=== PATIENT | female | born 1955 | race Caucasian/White ===

== ENCOUNTER → 2017-11-05 | Outpatient (CLI) | payer OTHER ==
[~2017-11-05] MED LIST: ALBU2.5V5 NEB; ALBU90I INH; ALBU90OI61 INH; ASPI81CH PO; ATEN25 PO; AZIT250 PO; BUME1 PO; CALCAVITD PO; CALCAVITDA PO; CEFP200 PO; DULERA 100 MCG/13 GM INH; DULERA 200 MCG/13 GM INH; ELIQUIS5 MG PO; FERR325 PO; FISH1000 PO; FOLI1 PO; FURO20 PO; GABA300 PO; IBUP800 PO; INSDET100 SC; LEVSOD100 PO; LISI20; LISI20 PO; METF500 PO; METF500C PO; PAIN & FEVER500 MG PO; POTCHL10ER PO; PRED10 PO; Prinivil10 MG PO; RALO60 PO; SALM50IP INH; SIMV10 PO; SIMV20 PO; SUPER CALCIUM PO; SV SALMON OIL1 EACH PO; THAL50CA PO; TIOT18 INH; WARF1 PO; WARF2 PO; WARF3 PO; ZESTORETIC 20-121 EA; ZESTORETIC 20-121 EA PO; [UNRECOGNIZED DRUG - OTHER] PO
[2017-11-05 12:51] LABS: BASOPHILS ABSOLUTE AUTO 0.02 K/mm3 (0.00-0.23); BASOPHILS PERCENT AUTO 0 % (0-2); EOSINOPHILS ABSOLUTE AUTO 0.04 K/mm3 (0.00-0.68); EOSINOPHILS PERCENT AUTO 1 % (0-6); Hematocrit 30.7 % (33.0-51.0); Hemoglobin 9.2 g/dL (11.5-16.0); IMMATURE GRAN ABSOLUTE AUTO 0.14 K/mm3 (0.00-0.10); IMMATURE GRAN PERCENT AUTO 3 % (0-1); LYMPHOCYTES ABSOLUTE AUTO 1.37 K/mm3 (0.84-5.20); LYMPHOCYTES PERCENT AUTO 25 % (21-46); MONOCYTES ABSOLUTE AUTO 0.87 K/mm3 (0.16-1.47); MONOCYTES PERCENT AUTO 16 % (4-13); Mean Corpuscular HGB 27.2 pg (26.0-34.0); Mean Corpuscular Volume 91 fL (80-100); Mean Platelet Volume 11.3 fL (9.1-12.4); NEUTROPHILS ABSOLUTE AUTO 3.05 K/mm3 (1.96-9.15); NEUTROPHILS PERCENT AUTO 56 % (41-73); NRBC ABSOLUTE 0.02 K/mm3 (0.00-0.02); NRBC Auto 0.4 /100 WBC (0.0-0.2); Platelet Count 135 K/mm3 (150-400); RDW Coefficient Variation 20.3 % (11.7-14.2); RDW Standard Deviation 66.3 fL (35.1-46.3); Red Blood Cell Count 3.38 M/mm3 (3.80-5.20); White Blood Cell Count 5.49 K/mm3 (4.00-11.30)
[2017-11-05 12:59] LABS: Bun/Creatinine Ratio 16.3 (12.0-20.0); Calcium, Blood 9.2 mg/dL (8.5-10.1); Creatinine, Blood 1.29 mg/dL (0.40-1.00); Potassium, Blood 4.1 mmol/L (3.5-5.5)
== END ==
LOC: LAB 12:47 → LAB SHORT 12:47
PROVIDERS: Family Medicine
DX: J44.1 Chronic obstructive pulmonary disease with (acute) exacerbation (principal)
CPT/HCPCS: 80048; 83880; 85025

== ENCOUNTER → 2017-11-06 | Outpatient (CLI) | payer OTHER ==
[2017-11-06 10:12] LABS: BASOPHILS ABSOLUTE AUTO 0.01 K/mm3 (0.00-0.23); BASOPHILS PERCENT AUTO 0 % (0-2); EOSINOPHILS ABSOLUTE AUTO 0.04 K/mm3 (0.00-0.68); EOSINOPHILS PERCENT AUTO 1 % (0-6); Hematocrit 30.4 % (33.0-51.0); Hemoglobin 8.9 g/dL (11.5-16.0); IMMATURE GRAN ABSOLUTE AUTO 0.12 K/mm3 (0.00-0.10); IMMATURE GRAN PERCENT AUTO 3 % (0-1); LYMPHOCYTES ABSOLUTE AUTO 1.33 K/mm3 (0.84-5.20); LYMPHOCYTES PERCENT AUTO 28 % (21-46); MONOCYTES ABSOLUTE AUTO 0.67 K/mm3 (0.16-1.47); MONOCYTES PERCENT AUTO 14 % (4-13); Mean Corpuscular HGB 26.7 pg (26.0-34.0); Mean Corpuscular HGB Conc 29.3 g/dL (31.5-36.5); Mean Corpuscular Volume 91 fL (80-100); Mean Platelet Volume 10.6 fL (9.1-12.4); NEUTROPHILS ABSOLUTE AUTO 2.51 K/mm3 (1.96-9.15); NEUTROPHILS PERCENT AUTO 54 % (41-73); NRBC ABSOLUTE 0.04 K/mm3 (0.00-0.02); NRBC Auto 0.9 /100 WBC (0.0-0.2); Platelet Count 130 K/mm3 (150-400); RDW Coefficient Variation 20.6 % (11.7-14.2); RDW Standard Deviation 66.7 fL (35.1-46.3); Red Blood Cell Count 3.33 M/mm3 (3.80-5.20); White Blood Cell Count 4.68 K/mm3 (4.00-11.30)
[2017-11-06 10:18] LABS: Bun/Creatinine Ratio 17.1 (12.0-20.0); Calcium, Blood 9.2 mg/dL (8.5-10.1); Creatinine, Blood 1.4 mg/dL (0.40-1.00); Potassium, Blood 4.5 mmol/L (3.5-5.5)
== END | disposition home or self-care (01) ==
LOC: LAB 10:08 → LAB SHORT 10:08
PROVIDERS: Physician Assistant Surgical
DX: R09.02 Hypoxemia (principal)
CPT/HCPCS: 80048; 83880; 85025

== ENCOUNTER → 2017-11-28 | Outpatient (CLI) | payer OTHER ==
[2017-11-28 13:30] LABS: BASOPHILS ABSOLUTE AUTO 0.01 K/mm3 (0.00-0.23); BASOPHILS PERCENT AUTO 0 % (0-2); EOSINOPHILS ABSOLUTE AUTO 0.05 K/mm3 (0.00-0.68); EOSINOPHILS PERCENT AUTO 1 % (0-6); Hemoglobin 8.4 g/dL (11.5-16.0); IMMATURE GRAN ABSOLUTE AUTO 0.31 K/mm3 (0.00-0.10); IMMATURE GRAN PERCENT AUTO 5 % (0-1); LYMPHOCYTES ABSOLUTE AUTO 1.45 K/mm3 (0.84-5.20); LYMPHOCYTES PERCENT AUTO 22 % (21-46); MONOCYTES ABSOLUTE AUTO 1.23 K/mm3 (0.16-1.47); MONOCYTES PERCENT AUTO 19 % (4-13); Mean Corpuscular HGB 27.4 pg (26.0-34.0); Mean Corpuscular Volume 91 fL (80-100); Mean Platelet Volume 12.2 fL (9.1-12.4); NEUTROPHILS ABSOLUTE AUTO 3.43 K/mm3 (1.96-9.15); NEUTROPHILS PERCENT AUTO 53 % (41-73); NRBC ABSOLUTE 0.02 K/mm3 (0.00-0.02); NRBC Auto 0.3 /100 WBC (0.0-0.2); Platelet Count 107 K/mm3 (150-400); RDW Coefficient Variation 21.4 % (11.7-14.2); Red Blood Cell Count 3.07 M/mm3 (3.80-5.20); White Blood Cell Count 6.48 K/mm3 (4.00-11.30)
[2017-11-28 13:39] LABS: Albumin/Globulin Ratio 0.7 (0.8-1.8); Bilirubin, Total 1.1 mg/dL (0.1-1.0); Calcium, Blood 8.8 mg/dL (8.5-10.1); Creatinine, Blood 1.14 mg/dL (0.40-1.00); Globulin, Blood 4.3 g/dL (2.2-4.0); Potassium, Blood 4.1 mmol/L (3.5-5.5); Total Protein, Blood 7.3 g/dL (6.4-8.2)
== END | disposition home or self-care (01) ==
LOC: LAB SHORT 13:19 → LAB EV 13:19
PROVIDERS: Physician Assistant
DX: R06.00 Dyspnea, unspecified (principal); R50.9 Fever, unspecified
CPT/HCPCS: 80053; 83880; 85025

== ENCOUNTER → 2018-02-24 | Outpatient (CLI) | payer OTHER ==
[~2018-02-24] MED LIST changes: -ALBU2.5V5 NEB; +ALBU90OI INH; -BUME1 PO; -ELIQUIS5 MG PO; -PAIN & FEVER500 MG PO; -POTCHL10ER PO; -THAL50CA PO
== END | disposition home or self-care (01) ==
LOC: LAB SHORT 11:10 → LAB 11:10
PROVIDERS: Obstetrics & Gynecology
DX: R89.6 Abnormal cytological findings in specimens from other organs, systems and tissues (principal)
CPT/HCPCS: 87624; 88142

== ENCOUNTER 2018-03-02 13:27 | Inpatient (IN) | payer OTHER ==
[~2018-03-02] VITALS: Ht 152.4 cm; Wt 111.1 kg
[~2018-03-02 13:27] MED LIST changes: +ALBU2.5V5 NEB; -ALBU90OI INH; -ELIQUIS5 MG PO
[2018-03-02] MEDS ORDERED: ELIQUIS5 MG PO (13:55)
[2018-03-02] MEDS ORDERED: METF500C PO (21:33)
[2018-03-03 05:41] LABS: Hematocrit 29.1 % (33.0-51.0); Hemoglobin 8.3 g/dL (11.5-16.0); Mean Corpuscular HGB 26.3 pg (26.0-34.0); Mean Corpuscular HGB Conc 28.5 g/dL (31.5-36.5); Mean Platelet Volume 12.2 fL (9.1-12.4); NRBC ABSOLUTE 0.09 K/mm3 (0.00-0.02); NRBC Auto 2.3 /100 WBC (0.0-0.2); Platelet Count 111 K/mm3 (150-400); RDW Coefficient Variation 20.5 % (11.7-14.2); RDW Standard Deviation 68.9 fL (35.1-46.3); Red Blood Cell Count 3.15 M/mm3 (3.80-5.20); White Blood Cell Count 3.87 K/mm3 (4.00-11.30)
[2018-03-03 05:52] LABS: Mean Corpuscular Volume 92 fL (80-100)
[2018-03-03 05:59] LABS: Albumin, Blood 2.4 g/dL (3.4-5.0); Albumin/Globulin Ratio 0.5 (0.8-1.8); Bilirubin, Total 0.8 mg/dL (0.1-1.0); Bun/Creatinine Ratio 21.4 (12.0-20.0); Creatinine, Blood 1.68 mg/dL (0.40-1.00); Globulin, Blood 4.5 g/dL (2.2-4.0); Potassium, Blood 4.2 mmol/L (3.5-5.5); Total Protein, Blood 6.9 g/dL (6.4-8.2); Troponin I 0.088 ng/mL (0.000-0.040)
[2018-03-04 04:42] LABS: BASOPHILS ABSOLUTE AUTO 0.01 K/mm3 (0.00-0.23); BASOPHILS PERCENT AUTO 0 % (0-2); EOSINOPHILS ABSOLUTE AUTO 0.09 K/mm3 (0.00-0.68); EOSINOPHILS PERCENT AUTO 3 % (0-6); Hematocrit 30.2 % (33.0-51.0); Hemoglobin 8.4 g/dL (11.5-16.0); IMMATURE GRAN ABSOLUTE AUTO 0.07 K/mm3 (0.00-0.10); IMMATURE GRAN PERCENT AUTO 2 % (0-1); LYMPHOCYTES ABSOLUTE AUTO 1.07 K/mm3 (0.84-5.20); LYMPHOCYTES PERCENT AUTO 36 % (21-46); MONOCYTES ABSOLUTE AUTO 0.62 K/mm3 (0.16-1.47); MONOCYTES PERCENT AUTO 21 % (4-13); Mean Corpuscular HGB 25.8 pg (26.0-34.0); Mean Corpuscular HGB Conc 27.8 g/dL (31.5-36.5); Mean Corpuscular Volume 93 fL (80-100); Mean Platelet Volume 10.6 fL (9.1-12.4); NEUTROPHILS ABSOLUTE AUTO 1.11 K/mm3 (1.96-9.15); NEUTROPHILS PERCENT AUTO 37 % (41-73); NRBC ABSOLUTE 0.06 K/mm3 (0.00-0.02); Platelet Count 109 K/mm3 (150-400); RDW Coefficient Variation 20.4 % (11.7-14.2); RDW Standard Deviation 69.7 fL (35.1-46.3); Red Blood Cell Count 3.25 M/mm3 (3.80-5.20); White Blood Cell Count 2.97 K/mm3 (4.00-11.30)
[2018-03-04 04:55] LABS: Bun/Creatinine Ratio 23.8 (12.0-20.0); Calcium, Blood 8.1 mg/dL (8.5-10.1); Creatinine, Blood 1.47 mg/dL (0.40-1.00); Potassium, Blood 4.1 mmol/L (3.5-5.5)
[2018-03-04 05:03] LABS: BAND PERCENT MAN 2 % (0-8); BASOPHILS PERCENT MAN 0 % (0-2); EOSINOPHILS ABSOLUTE MAN 0.14 K/mm3 (0.00-0.68); EOSINOPHILS PERCENT MAN 5 % (0-6); LYMPHOCYTES ABSOLUTE MAN 1.12 K/mm3 (0.84-5.20); LYMPHOCYTES PERCENT MAN 38 % (21-46); MONOCYTES ABSOLUTE MAN 0.41 K/mm3 (0.16-1.47); MONOCYTES PERCENT MAN 14 % (4-13); NEUTROPHILS ABSOLUTE MAN 1.27 K/mm3 (1.96-9.15); SEG NEUTROPHILS PERCENT MAN 41 % (41-73); TOTAL CELLS COUNTED 100
[2018-03-04] MEDS ORDERED: POTCHL10ER PO (12:02)
[2018-03-04] MEDS ORDERED: PAIN & FEVER500 MG PO (12:02)
[2018-03-04] MEDS ORDERED: THAL50CA PO (12:03)
[2018-03-04] MEDS ORDERED: BUME1 PO (12:03)
== END 2018-03-04 15:00 | disposition home or self-care (01) | DRG 291 ==
LOC: ER 13:27 → SURS 15:19 → MEDS 15:19 → SURS 16:00
PROVIDERS: Family Medicine
DX: I13.0 Hypertensive heart and chronic kidney disease with heart failure and stage 1 through stage 4 chronic kidney disease, or unspecified chronic kidney disease (principal); J96.21 Acute and chronic respiratory failure with hypoxia; I50.33 Acute on chronic diastolic (congestive) heart failure; N17.9 Acute kidney failure, unspecified; D61.818 Other pancytopenia; N18.3 Chronic kidney disease, stage 3 (moderate); I27.20 Pulmonary hypertension, unspecified; G47.33 Obstructive sleep apnea (adult) (pediatric); Z85.820 Personal history of malignant melanoma of skin; I25.2 Old myocardial infarction
CPT/HCPCS: 36415; 80048; 80053; 82947; 83880; 84484; 85025; 85027; 93005; 93010; 93306; 94640; 94660; 94761; 94762; 96374; 99285; J1940

== ENCOUNTER → 2018-03-02 | Outpatient (CLI) | payer OTHER ==
[~2018-03-02] MED LIST changes: +ELIQUIS5 MG PO
[2018-03-02 11:59] LABS: BASOPHILS ABSOLUTE AUTO 0.01 K/mm3 (0.00-0.23); BASOPHILS PERCENT AUTO 0 % (0-2); EOSINOPHILS ABSOLUTE AUTO 0.06 K/mm3 (0.00-0.68); EOSINOPHILS PERCENT AUTO 1 % (0-6); Hematocrit 29.4 % (33.0-51.0); Hemoglobin 8.9 g/dL (11.5-16.0); IMMATURE GRAN ABSOLUTE AUTO 0.11 K/mm3 (0.00-0.10); IMMATURE GRAN PERCENT AUTO 3 % (0-1); LYMPHOCYTES ABSOLUTE AUTO 1.01 K/mm3 (0.84-5.20); LYMPHOCYTES PERCENT AUTO 24 % (21-46); MONOCYTES ABSOLUTE AUTO 0.59 K/mm3 (0.16-1.47); MONOCYTES PERCENT AUTO 14 % (4-13); Mean Corpuscular HGB 27.1 pg (26.0-34.0); Mean Corpuscular HGB Conc 30.3 g/dL (31.5-36.5); Mean Corpuscular Volume 89 fL (80-100); Mean Platelet Volume 11.1 fL (9.1-12.4); NEUTROPHILS ABSOLUTE AUTO 2.51 K/mm3 (1.96-9.15); NEUTROPHILS PERCENT AUTO 59 % (41-73); NRBC ABSOLUTE 0.11 K/mm3 (0.00-0.02); NRBC Auto 2.6 /100 WBC (0.0-0.2); Platelet Count 110 K/mm3 (150-400); RDW Standard Deviation 68.1 fL (35.1-46.3); Red Blood Cell Count 3.29 M/mm3 (3.80-5.20); White Blood Cell Count 4.29 K/mm3 (4.00-11.30)
[2018-03-02 12:13] LABS: Bun/Creatinine Ratio 18.4 (12.0-20.0); Calcium, Blood 8.1 mg/dL (8.5-10.1); Creatinine, Blood 2.01 mg/dL (0.40-1.00); Potassium, Blood 4.3 mmol/L (3.5-5.5); Troponin I 0.104 ng/mL (0.000-0.040)
== END ==
LOC: LAB SHORT 11:55
PROVIDERS: Family Medicine
DX: J44.9 Chronic obstructive pulmonary disease, unspecified (principal)
CPT/HCPCS: 80048; 83880; 84484; 85025

== ENCOUNTER 2018-03-05 00:25 | Emergency (ER) | payer OTHER ==
[~2018-03-05] VITALS: Ht 152.4 cm; Wt 111.1 kg
[~2018-03-05 00:25] MED LIST changes: +BUME1 PO; +ELIQUIS5 MG PO; +PAIN & FEVER500 MG PO; +POTCHL10ER PO; +THAL50CA PO
== END 2018-03-05 02:31 | disposition home or self-care (01) ==
LOC: ER 00:25
DX: R04.0 Epistaxis (principal); Z88.5 Allergy status to narcotic agent; Z79.899 Other long term (current) drug therapy; Z79.82 Long term (current) use of aspirin; Z79.84 Long term (current) use of oral hypoglycemic drugs; I11.0 Hypertensive heart disease with heart failure; I50.9 Heart failure, unspecified; E11.9 Type 2 diabetes mellitus without complications; E78.5 Hyperlipidemia, unspecified; J44.9 Chronic obstructive pulmonary disease, unspecified; Z87.891 Personal history of nicotine dependence
CPT/HCPCS: 99283

== ENCOUNTER → 2018-04-16 | Outpatient (CLI) | payer OTHER | LOC: LAB SHORT 16:17 → LAB 16:17 | DX: E11.9 Type 2 diabetes mellitus without complications (principal) | CPT/HCPCS: 82043 ==

== ENCOUNTER → 2018-08-21 | Outpatient (CLI) | payer OTHER ==
[~2018-08-21] MED LIST changes: +CEFD300 PO; +FURO80 PO; +GLIP2.5ER PO; +LEVSOD88 PO; +Lisinopril2.5 MG
[2018-08-21 13:48] LABS: BASOPHILS ABSOLUTE AUTO 0.01 K/mm3 (0.00-0.23); BASOPHILS PERCENT AUTO 0 % (0-2); EOSINOPHILS ABSOLUTE AUTO 0.16 K/mm3 (0.00-0.68); EOSINOPHILS PERCENT AUTO 2 % (0-6); Hematocrit 32.9 % (33.0-51.0); Hemoglobin 9.7 g/dL (11.5-16.0); IMMATURE GRAN ABSOLUTE AUTO 0.52 K/mm3 (0.00-0.10); IMMATURE GRAN PERCENT AUTO 5 % (0-1); LYMPHOCYTES ABSOLUTE AUTO 1.31 K/mm3 (0.84-5.20); LYMPHOCYTES PERCENT AUTO 14 % (21-46); MONOCYTES ABSOLUTE AUTO 1.01 K/mm3 (0.16-1.47); MONOCYTES PERCENT AUTO 11 % (4-13); Mean Corpuscular HGB 27.8 pg (26.0-34.0); Mean Corpuscular HGB Conc 29.5 g/dL (31.5-36.5); Mean Corpuscular Volume 94 fL (80-100); Mean Platelet Volume 12.3 fL (9.1-12.4); NEUTROPHILS PERCENT AUTO 69 % (41-73); Platelet Count 132 K/mm3 (150-400); RDW Coefficient Variation 20.7 % (11.7-14.2); RDW Standard Deviation 70.3 fL (35.1-46.3); Red Blood Cell Count 3.49 M/mm3 (3.80-5.20); White Blood Cell Count 9.61 K/mm3 (4.00-11.30)
[2018-08-21 13:55] LABS: Calcium, Blood 8.3 mg/dL (8.5-10.1); Creatinine, Blood 1.8 mg/dL (0.40-1.00); Potassium, Blood 4.4 mmol/L (3.5-5.5)
== END | disposition home or self-care (01) ==
LOC: LAB SHORT 13:44 → LAB EV 13:44
PROVIDERS: Physician Assistant Surgical
DX: R06.02 Shortness of breath (principal)
CPT/HCPCS: 80048; 83880; 85025

== ENCOUNTER 2018-09-26 12:10 | Inpatient (IN) | payer OTHER ==
[~2018-09-26] VITALS: Ht 154.9 cm; Wt 119.5 kg
[~2018-09-26 12:10] MED LIST changes: -CEFD300 PO; -FURO80 PO; -GLIP2.5ER PO; -LEVSOD88 PO; -Lisinopril2.5 MG
[2018-09-26] MEDS ORDERED: CEFD300 PO (12:28)
[2018-09-26] MEDS ORDERED: FURO20 PO (12:29)
[2018-09-26] MEDS ORDERED: DULERA 100 MCG/13 GM INH (12:29)
[2018-09-26] MEDS ORDERED: GLIP2.5ER PO (12:30)
[2018-09-26] MEDS ORDERED: TIOT18 INH (12:30)
[2018-09-26] MEDS ORDERED: LEVSOD88 PO (12:31)
[2018-09-26 12:49] LABS: PCO2 Arterial 54.7 mmHg (35-45); PO2 Arterial 60.7 mmHg (80-100); pH Blood Arterial 7.34 (7.35-7.45)
[2018-09-26] MEDS ORDERED: GABA300 PO (16:58)
[2018-09-26 18:11] LABS: Source, Urine Catheter
[2018-09-26 18:14] LABS: Bilirubin, Urine Neg (Neg); Blood, Urine Neg (Neg); Glucose Qualitative, Urine Neg (Neg); Ketones, Urine Neg (Neg); Leukocyte Esterase, Urine Neg (Neg); Nitrite, Urine Neg (Neg); Protein, Urine Neg (Neg); Urobilinogen, Urine NORM (Normal)
[2018-09-26 18:17] LABS: Appearance, Urine Clear (Clear); Color, Urine Yellow (P-Yellow)
[2018-09-27 04:50] LABS: PO2 Arterial 68.2 mmHg (80-100); pH Blood Arterial 7.35 (7.35-7.45)
[2018-09-27 05:18] LABS: BASOPHILS ABSOLUTE AUTO 0.03 K/mm3 (0.00-0.23); BASOPHILS PERCENT AUTO 0 % (0-2); EOSINOPHILS ABSOLUTE AUTO 0.03 K/mm3 (0.00-0.68); EOSINOPHILS PERCENT AUTO 0 % (0-6); Hematocrit 36.9 % (33.0-51.0); Hemoglobin 9.8 g/dL (11.5-16.0); IMMATURE GRAN ABSOLUTE AUTO 0.54 K/mm3 (0.00-0.10); IMMATURE GRAN PERCENT AUTO 7 % (0-1); LYMPHOCYTES ABSOLUTE AUTO 1.48 K/mm3 (0.84-5.20); LYMPHOCYTES PERCENT AUTO 18 % (21-46); MONOCYTES ABSOLUTE AUTO 1.36 K/mm3 (0.16-1.47); MONOCYTES PERCENT AUTO 17 % (4-13); Mean Corpuscular HGB 25.7 pg (26.0-34.0); Mean Corpuscular HGB Conc 26.6 g/dL (31.5-36.5); Mean Corpuscular Volume 97 fL (80-100); NEUTROPHILS ABSOLUTE AUTO 4.64 K/mm3 (1.96-9.15); NEUTROPHILS PERCENT AUTO 57 % (41-73); NRBC ABSOLUTE 0.25 K/mm3 (0.00-0.02); NRBC Auto 3.1 /100 WBC (0.0-0.2); RDW Coefficient Variation 22.8 % (11.7-14.2); RDW Standard Deviation 76.9 fL (35.1-46.3); Red Blood Cell Count 3.82 M/mm3 (3.80-5.20); White Blood Cell Count 8.08 K/mm3 (4.00-11.30)
[2018-09-27 05:31] LABS: Mean Platelet Volume 10.6 fL (9.1-12.4); Platelet Count 123 K/mm3 (150-400)
[2018-09-27 05:41] LABS: BAND PERCENT MAN 8 % (0-8); BASOPHILS PERCENT MAN 0 % (0-2); EOSINOPHILS ABSOLUTE MAN 0.08 K/mm3 (0.00-0.68); EOSINOPHILS PERCENT MAN 1 % (0-6); LYMPHOCYTES ABSOLUTE MAN 0.96 K/mm3 (0.84-5.20); LYMPHOCYTES PERCENT MAN 12 % (21-46); METAMYELOCYTE ABSOLUTE MAN 0.24 K/mm3 (0.00-0.00); METAMYELOCYTE PERCENT MAN 3 % (0-0); MONOCYTES ABSOLUTE MAN 1.69 K/mm3 (0.16-1.47); MONOCYTES PERCENT MAN 21 % (4-13); NEUTROPHILS ABSOLUTE MAN 5.09 K/mm3 (1.96-9.15); SEG NEUTROPHILS PERCENT MAN 55 % (41-73); TOTAL CELLS COUNTED 100
[2018-09-27 05:56] LABS: Albumin, Blood 2.5 g/dL (3.4-5.0); Albumin/Globulin Ratio 0.5 (0.8-1.8); Bilirubin, Total 0.4 mg/dL (0.1-1.0); Bun/Creatinine Ratio 22.6 (12.0-20.0); Calcium, Blood 8.3 mg/dL (8.5-10.1); Creatine Kinase MB Index 6.5 (0.0-4.0); Creatinine, Blood 2.3 mg/dL (0.40-1.00); Globulin, Blood 4.9 g/dL (2.2-4.0); Total Protein, Blood 7.4 g/dL (6.4-8.2); Troponin I 0.056 ng/mL (0.000-0.040)
[2018-09-28 05:20] LABS: Hematocrit 37.1 % (33.0-51.0); Hemoglobin 10.1 g/dL (11.5-16.0)
[2018-09-28 05:35] LABS: Albumin, Blood 2.6 g/dL (3.4-5.0); Anion Gap 7 mmol/L (6-16); Blood Urea Nitrogen 56 mg/dL (8-24); Bun/Creatinine Ratio 28.4 (12.0-20.0); CO2, Blood 31 mmol/L (21-32); Calcium, Blood 8.3 mg/dL (8.5-10.1); Chloride, Blood 99 mmol/L (98-108); Creatinine, Blood 1.97 mg/dL (0.40-1.00); Glomerular Filtration Rate 27 (60-); Glucose, Blood 90 mg/dL (70-99); Magnesium, Blood 2.5 mg/dL (1.6-2.4); Phosphorus, Blood 5.5 mg/dL (2.5-4.9); Potassium, Blood 4.4 mmol/L (3.5-5.5); Sodium, Blood 137 mmol/L (136-145)
[2018-09-29 05:03] LABS: BASOPHILS ABSOLUTE AUTO 0.02 K/mm3 (0.00-0.23); BASOPHILS PERCENT AUTO 0 % (0-2); EOSINOPHILS ABSOLUTE AUTO 0.11 K/mm3 (0.00-0.68); EOSINOPHILS PERCENT AUTO 2 % (0-6); Hematocrit 37.5 % (33.0-51.0); Hemoglobin 10.2 g/dL (11.5-16.0); IMMATURE GRAN ABSOLUTE AUTO 0.26 K/mm3 (0.00-0.10); IMMATURE GRAN PERCENT AUTO 4 % (0-1); LYMPHOCYTES ABSOLUTE AUTO 1.55 K/mm3 (0.84-5.20); LYMPHOCYTES PERCENT AUTO 26 % (21-46); MONOCYTES PERCENT AUTO 15 % (4-13); Mean Corpuscular HGB 25.4 pg (26.0-34.0); Mean Corpuscular HGB Conc 27.2 g/dL (31.5-36.5); Mean Platelet Volume 11.1 fL (9.1-12.4); NEUTROPHILS ABSOLUTE AUTO 3.12 K/mm3 (1.96-9.15); NEUTROPHILS PERCENT AUTO 52 % (41-73); NRBC ABSOLUTE 0.09 K/mm3 (0.00-0.02); NRBC Auto 1.5 /100 WBC (0.0-0.2); Platelet Count 112 K/mm3 (150-400); Red Blood Cell Count 4.01 M/mm3 (3.80-5.20); White Blood Cell Count 5.96 K/mm3 (4.00-11.30)
[2018-09-29 05:07] LABS: Mean Corpuscular Volume 94 fL (80-100)
[2018-09-29 05:23] LABS: Alanine Aminotransfer (ALT/SGP 15 U/L (12-78); Albumin, Blood 2.8 g/dL (3.4-5.0); Albumin/Globulin Ratio 0.5 (0.8-1.8); Alk Phos 82 U/L (50-136); Anion Gap 9 mmol/L (6-16); Aspartate Aminotrans (AST/SGOT 14 U/L (12-37); Bilirubin, Total 0.5 mg/dL (0.1-1.0); Blood Urea Nitrogen 54 mg/dL (8-24); Bun/Creatinine Ratio 30.3 (12.0-20.0); CO2, Blood 32 mmol/L (21-32); Calcium, Blood 8.6 mg/dL (8.5-10.1); Chloride, Blood 96 mmol/L (98-108); Creatinine, Blood 1.78 mg/dL (0.40-1.00); Globulin, Blood 5.1 g/dL (2.2-4.0); Glomerular Filtration Rate 30 (60-); Glucose, Blood 102 mg/dL (70-99); Magnesium, Blood 2.4 mg/dL (1.6-2.4); Phosphorus, Blood 4.4 mg/dL (2.5-4.9); Potassium, Blood 4.3 mmol/L (3.5-5.5); Sodium, Blood 137 mmol/L (136-145); Total Protein, Blood 7.9 g/dL (6.4-8.2)
[2018-09-29] MEDS ORDERED: FURO80 PO (13:44)
[2018-09-29] MEDS ORDERED: CEFP200 PO (13:45)
[2018-09-29] MEDS ORDERED: Lisinopril2.5 MG (13:48)
[2018-10-01 15:07] LABS: M-SPIKE, % Comment: % (Not Observed); PROTEIN,TOTAL,URINE 10.8 mg/dL (Not Estab.)
[2018-10-01 15:07] LABS: A/G RATIO 0.7 (0.7-1.7); ALBUMIN 2.7 g/dL (2.9-4.4); ALPHA-1-GLOBULIN 0.4 g/dL (0.0-0.4); ALPHA-2-GLOBULIN 0.9 g/dL (0.4-1.0); GAMMA GLOBULIN 1.7 g/dL (0.4-1.8); IMMUNOGLOBULIN A, QN, SERUM 570 mg/dL (87-352); IMMUNOGLOBULIN G, QN, SERUM 1439 mg/dL (700-1600); IMMUNOGLOBULIN M, QN, SERUM 87 mg/dL (26-217); M-SPIKE 0.6 g/dL (Not Observed); PROTEIN, TOTAL, SERUM 6.7 g/dL (6.0-8.5)
== END 2018-09-29 15:24 | disposition home or self-care (01) | DRG 291 ==
LOC: ER 12:10 → MEDS 14:04
PROVIDERS: Internal Medicine; Internal Medicine Nephrology; ADMIT Family Medicine
DX: I13.0 Hypertensive heart and chronic kidney disease with heart failure and stage 1 through stage 4 chronic kidney disease, or unspecified chronic kidney disease (principal); I50.33 Acute on chronic diastolic (congestive) heart failure; J96.01 Acute respiratory failure with hypoxia; J96.02 Acute respiratory failure with hypercapnia; N17.9 Acute kidney failure, unspecified; Z68.41 Body mass index [BMI] 40.0-44.9, adult; C90.00 Multiple myeloma not having achieved remission; N18.4 Chronic kidney disease, stage 4 (severe); Z86.718 Personal history of other venous thrombosis and embolism; J44.9 Chronic obstructive pulmonary disease, unspecified; Z99.81 Dependence on supplemental oxygen; G47.33 Obstructive sleep apnea (adult) (pediatric); Z87.891 Personal history of nicotine dependence; E66.01 Morbid (severe) obesity due to excess calories; I27.20 Pulmonary hypertension, unspecified; E78.5 Hyperlipidemia, unspecified; E03.9 Hypothyroidism, unspecified; Z79.82 Long term (current) use of aspirin; E11.22 Type 2 diabetes mellitus with diabetic chronic kidney disease; D63.1 Anemia in chronic kidney disease; E87.70 Fluid overload, unspecified; J40 Bronchitis, not specified as acute or chronic
CPT/HCPCS: 36415; 36600; 76770; 80053; 80069; 81003; 81050; 82550; 82553; 82784; 82803; 82947; 83605; 83735; 84100; 84145; 84156; 84165; 84166; 84443; 84484; 85014; 85018; 85025; 86334; 86335; 87040; 94640; 94660; 94762; 96365; 96367; 96375; 99285-25; J0456; J0696; J1940; J7050

== ENCOUNTER → 2018-09-26 | Outpatient (CLI) | payer OTHER ==
[2018-09-26 11:06] LABS: Hematocrit 37.5 % (33.0-51.0); Hemoglobin 10.3 g/dL (11.5-16.0); Mean Corpuscular HGB 26.3 pg (26.0-34.0); Mean Corpuscular HGB Conc 27.5 g/dL (31.5-36.5); Mean Corpuscular Volume 96 fL (80-100); Mean Platelet Volume 11.6 fL (9.1-12.4); NRBC ABSOLUTE 0.35 K/mm3 (0.00-0.02); NRBC Auto 3.4 /100 WBC (0.0-0.2); Platelet Count 156 K/mm3 (150-400); RDW Coefficient Variation 23.1 % (11.7-14.2); RDW Standard Deviation 75.4 fL (35.1-46.3); Red Blood Cell Count 3.92 M/mm3 (3.80-5.20); White Blood Cell Count 10.26 K/mm3 (4.00-11.30)
[2018-09-26 11:27] LABS: Albumin, Blood 2.8 g/dL (3.4-5.0); Albumin/Globulin Ratio 0.5 (0.8-1.8); Bilirubin, Total 0.6 mg/dL (0.1-1.0); Bun/Creatinine Ratio 21.9 (12.0-20.0); Calcium, Blood 9.7 mg/dL (8.5-10.1); Creatinine, Blood 2.42 mg/dL (0.40-1.00); Globulin, Blood 5.2 g/dL (2.2-4.0); Potassium, Blood 5.9 mmol/L (3.5-5.5); Troponin I 0.086 ng/mL (0.000-0.040)
[2018-09-26 11:33] LABS: BAND PERCENT MAN 15 % (0-8); BASOPHILS PERCENT MAN 0 % (0-2); EOSINOPHILS PERCENT MAN 0 % (0-6); LYMPHOCYTES ABSOLUTE MAN 1.43 K/mm3 (0.84-5.20); LYMPHOCYTES PERCENT MAN 14 % (21-46); METAMYELOCYTE PERCENT MAN 2 % (0-0); MONOCYTES ABSOLUTE MAN 0.51 K/mm3 (0.16-1.47); MONOCYTES PERCENT MAN 5 % (4-13); SEG NEUTROPHILS PERCENT MAN 62 % (41-73); TOTAL CELLS COUNTED 100
[2018-09-26 11:34] LABS: OTHER CELL PERCENT MAN 2 % (0-0)
== END | disposition home or self-care (01) ==
LOC: LAB EV 11:00 → LAB SHORT 11:00
PROVIDERS: General Practice
DX: R06.00 Dyspnea, unspecified (principal)
CPT/HCPCS: 80053; 82550; 83880; 84484; 85025; 85379

== ENCOUNTER 2019-02-11 16:15 | Emergency (ER) | payer OTHER ==
[~2019-02-11] VITALS: Ht 154.9 cm; Wt 120.7 kg
[~2019-02-11 16:15] MED LIST changes: +CEFD300 PO; +FURO80 PO; +GLIP2.5ER PO; +LEVSOD88 PO; +Lisinopril2.5 MG; +Prednisone20 MG PO
[2019-02-11 16:54] LABS: Hematocrit 38.3 % (33.0-51.0); Hemoglobin 11.2 g/dL (11.5-16.0); Mean Corpuscular HGB 28.5 pg (26.0-34.0); Mean Corpuscular HGB Conc 29.2 g/dL (31.5-36.5); Mean Corpuscular Volume 98 fL (80-100); NRBC ABSOLUTE 0.04 K/mm3 (0.00-0.02); NRBC Auto 0.5 /100 WBC (0.0-0.2); Platelet Count 100 K/mm3 (150-400); RDW Coefficient Variation 19.5 % (11.7-14.2); RDW Standard Deviation 70.2 fL (35.1-46.3); Red Blood Cell Count 3.93 M/mm3 (3.80-5.20)
[2019-02-11 16:56] LABS: Mean Platelet Volume 13.7 fL (9.1-12.4)
[2019-02-11 17:13] LABS: Albumin, Blood 3.4 g/dL (3.4-5.0); Albumin/Globulin Ratio 0.9 (0.8-1.8); Bilirubin, Total 0.6 mg/dL (0.1-1.0); Bun/Creatinine Ratio 16.9 (12.0-20.0); Calcium, Blood 8.4 mg/dL (8.5-10.1); Creatinine, Blood 1.54 mg/dL (0.40-1.00); Globulin, Blood 3.8 g/dL (2.2-4.0); Potassium, Blood 4.5 mmol/L (3.5-5.5); Total Protein, Blood 7.2 g/dL (6.4-8.2); Troponin I 0.033 ng/mL (0.000-0.040)
[2019-02-11 17:29] LABS: BAND PERCENT MAN 5 % (0-8); BASOPHILS PERCENT MAN 0 % (0-2); EOSINOPHILS PERCENT MAN 0 % (0-6); LYMPHOCYTES ABSOLUTE MAN 2.57 K/mm3 (0.84-5.20); LYMPHOCYTES PERCENT MAN 33 % (21-46); METAMYELOCYTE ABSOLUTE MAN 0.07 K/mm3 (0.00-0.00); METAMYELOCYTE PERCENT MAN 1 % (0-0); MONOCYTES ABSOLUTE MAN 0.85 K/mm3 (0.16-1.47); MONOCYTES PERCENT MAN 11 % (4-13); NEUTROPHILS ABSOLUTE MAN 4.29 K/mm3 (1.96-9.15); SEG NEUTROPHILS PERCENT MAN 50 % (41-73); TOTAL CELLS COUNTED 100
[2019-02-11] MEDS ORDERED: Zithromax250 MG PO (19:30)
[2019-02-11] MEDS ORDERED: Prednisone20 MG PO (19:30)
== END 2019-02-11 19:53 | disposition home or self-care (01) ==
LOC: ER 16:15
PROVIDERS: Physician Assistant
DX: J44.1 Chronic obstructive pulmonary disease with (acute) exacerbation (principal); I50.9 Heart failure, unspecified; I11.0 Hypertensive heart disease with heart failure; E11.9 Type 2 diabetes mellitus without complications; E78.5 Hyperlipidemia, unspecified; Z79.899 Other long term (current) drug therapy
CPT/HCPCS: 36415; 71046; 80053; 83880; 84484; 85025; 93005; 93010; 94640; 96374; 99284-25; J2930

== ENCOUNTER 2019-02-27 11:23 | Emergency (ER) | payer OTHER ==
[~2019-02-27] VITALS: Ht 152.4 cm; Wt 115.7 kg
[~2019-02-27 11:23] MED LIST changes: +Zithromax250 MG PO
[2019-02-27 12:32] LABS: BASOPHILS ABSOLUTE AUTO 0.02 K/mm3 (0.00-0.23); BASOPHILS PERCENT AUTO 0 % (0-2); EOSINOPHILS ABSOLUTE AUTO 0.07 K/mm3 (0.00-0.68); EOSINOPHILS PERCENT AUTO 1 % (0-6); Hematocrit 36.5 % (33.0-51.0); Hemoglobin 10.9 g/dL (11.5-16.0); IMMATURE GRAN ABSOLUTE AUTO 0.28 K/mm3 (0.00-0.10); IMMATURE GRAN PERCENT AUTO 3 % (0-1); LYMPHOCYTES ABSOLUTE AUTO 1.44 K/mm3 (0.84-5.20); LYMPHOCYTES PERCENT AUTO 14 % (21-46); MONOCYTES ABSOLUTE AUTO 1.38 K/mm3 (0.16-1.47); MONOCYTES PERCENT AUTO 14 % (4-13); Mean Corpuscular HGB 28.4 pg (26.0-34.0); Mean Corpuscular HGB Conc 29.9 g/dL (31.5-36.5); Mean Corpuscular Volume 95 fL (80-100); NEUTROPHILS ABSOLUTE AUTO 6.92 K/mm3 (1.96-9.15); NEUTROPHILS PERCENT AUTO 69 % (41-73); Platelet Count 130 K/mm3 (150-400); RDW Coefficient Variation 18.9 % (11.7-14.2); RDW Standard Deviation 65.5 fL (35.1-46.3); Red Blood Cell Count 3.84 M/mm3 (3.80-5.20); White Blood Cell Count 10.11 K/mm3 (4.00-11.30)
[2019-02-27 12:39] LABS: Mean Platelet Volume 13.4 fL (9.1-12.4)
[2019-02-27 12:46] LABS: Alanine Aminotransfer (ALT/SGP 16 U/L (12-78); Albumin, Blood 3.3 g/dL (3.4-5.0); Albumin/Globulin Ratio 0.8 (0.8-1.8); Alk Phos 79 U/L (50-136); Anion Gap 8 mmol/L (6-16); Aspartate Aminotrans (AST/SGOT 12 U/L (12-37); Bilirubin, Total 0.7 mg/dL (0.1-1.0); Blood Urea Nitrogen 24 mg/dL (8-24); Bun/Creatinine Ratio 13.6 (12.0-20.0); CO2, Blood 28 mmol/L (21-32); Calcium, Blood 8.8 mg/dL (8.5-10.1); Chloride, Blood 104 mmol/L (98-108); Creatinine, Blood 1.76 mg/dL (0.40-1.00); Glomerular Filtration Rate 31 (60-); Glucose, Blood 126 mg/dL (70-99); Potassium, Blood 4.6 mmol/L (3.5-5.5); Sodium, Blood 140 mmol/L (136-145); Total Protein, Blood 7.3 g/dL (6.4-8.2); Troponin I <0.015 ng/mL (0.000-0.040)
== END 2019-02-27 15:37 | disposition home or self-care (01) ==
LOC: ER 11:23
PROVIDERS: Physician Assistant
DX: J44.1 Chronic obstructive pulmonary disease with (acute) exacerbation (principal); E11.9 Type 2 diabetes mellitus without complications; I10 Essential (primary) hypertension; E78.00 Pure hypercholesterolemia, unspecified; Z86.718 Personal history of other venous thrombosis and embolism; Z87.01 Personal history of pneumonia (recurrent); Z87.891 Personal history of nicotine dependence; Z88.8 Allergy status to other drugs, medicaments and biological substances; Z88.5 Allergy status to narcotic agent; Z79.84 Long term (current) use of oral hypoglycemic drugs; Z79.899 Other long term (current) drug therapy; Z79.82 Long term (current) use of aspirin; Z79.52 Long term (current) use of systemic steroids
CPT/HCPCS: 36415; 71046; 80053; 83880; 84484; 85025; 93005; 93010; 94640; 94644; 99284-25; J2930

== ENCOUNTER → 2019-03-02 | Outpatient (CLI) | payer OTHER ==
[2019-03-03 14:07] LABS: HPV 16 Negative (Negative); HPV 18 Negative (Negative); HPV OTHER HR TYPES Positive (Negative)
== END | disposition home or self-care (01) ==
LOC: LAB 10:31 → LAB SHORT 10:31
PROVIDERS: Obstetrics & Gynecology
DX: Z01.419 Encounter for gynecological examination (general) (routine) without abnormal findings (principal)
CPT/HCPCS: 87624; 87625; G0123

== ENCOUNTER 2019-03-16 11:21 | Inpatient (IN) | payer OTHER ==
[~2019-03-16] VITALS: Ht 152.4 cm; Wt 124.0 kg
[~2019-03-16 11:21] MED LIST changes: +ELIQUIS2.5 MG PO; -ELIQUIS5 MG PO; -LEVSOD88 PO; -Lisinopril2.5 MG; +Lisinopril2.5 MG PO
[2019-03-16 12:29] LABS: BASOPHILS ABSOLUTE AUTO 0.01 K/mm3 (0.00-0.23); BASOPHILS PERCENT AUTO 0 % (0-2); EOSINOPHILS ABSOLUTE AUTO 0.12 K/mm3 (0.00-0.68); EOSINOPHILS PERCENT AUTO 1 % (0-6); Hematocrit 33.1 % (33.0-51.0); Hemoglobin 9.5 g/dL (11.5-16.0); IMMATURE GRAN ABSOLUTE AUTO 0.33 K/mm3 (0.00-0.10); IMMATURE GRAN PERCENT AUTO 3 % (0-1); LYMPHOCYTES ABSOLUTE AUTO 2.23 K/mm3 (0.84-5.20); LYMPHOCYTES PERCENT AUTO 18 % (21-46); MONOCYTES ABSOLUTE AUTO 2.78 K/mm3 (0.16-1.47); MONOCYTES PERCENT AUTO 22 % (4-13); Mean Corpuscular HGB 28.7 pg (26.0-34.0); Mean Corpuscular HGB Conc 28.7 g/dL (31.5-36.5); Mean Corpuscular Volume 100 fL (80-100); Mean Platelet Volume 12.8 fL (9.1-12.4); NEUTROPHILS ABSOLUTE AUTO 7.19 K/mm3 (1.96-9.15); NEUTROPHILS PERCENT AUTO 57 % (41-73); Platelet Count 139 K/mm3 (150-400); RDW Coefficient Variation 21.7 % (11.7-14.2); RDW Standard Deviation 78.3 fL (35.1-46.3); Red Blood Cell Count 3.31 M/mm3 (3.80-5.20); White Blood Cell Count 12.66 K/mm3 (4.00-11.30)
[2019-03-16 13:04] LABS: Albumin, Blood 3.3 g/dL (3.4-5.0); Albumin/Globulin Ratio 0.8 (0.8-1.8); Bilirubin, Total 0.9 mg/dL (0.1-1.0); Bun/Creatinine Ratio 15.4 (12.0-20.0); Calcium, Blood 8.4 mg/dL (8.5-10.1); Creatinine, Blood 1.62 mg/dL (0.40-1.00); Globulin, Blood 4.2 g/dL (2.2-4.0); Potassium, Blood 5.1 mmol/L (3.5-5.5); Total Protein, Blood 7.5 g/dL (6.4-8.2); Troponin I 0.024 ng/mL (0.000-0.040)
[2019-03-16] MEDS ORDERED: Neurontin300 MG PO (14:19)
--- NOTE | 2019-03-16 17:49 | NUR ---
SHIFT SUMMARY PT IS A NEW ADMISSION THIS AFTERNOON FROM ED. PT IS ALERT AND ORIENTED X3. DENIES PAIN AT THIS TIME. PT ON 2L OXYGEN VIA NC. PT WEARS CPAP AT NIGHT AND RT SET HOSPITAL CPAP UP. PT HAS HAD NO COMPLAINTS OR REQUESTS AT THIS TIME. CALL LIGHT IN REACH. WILL CONTINUE TO MONITOR AND REPORT TO ONCOMING RN.
[2019-03-17 05:05] LABS: BASOPHILS ABSOLUTE AUTO 0.01 K/mm3 (0.00-0.23); BASOPHILS PERCENT AUTO 0 % (0-2); EOSINOPHILS ABSOLUTE AUTO 0.06 K/mm3 (0.00-0.68); EOSINOPHILS PERCENT AUTO 1 % (0-6); Hematocrit 28.9 % (33.0-51.0); Hemoglobin 8.6 g/dL (11.5-16.0); IMMATURE GRAN ABSOLUTE AUTO 0.14 K/mm3 (0.00-0.10); IMMATURE GRAN PERCENT AUTO 2 % (0-1); LYMPHOCYTES ABSOLUTE AUTO 1.09 K/mm3 (0.84-5.20); LYMPHOCYTES PERCENT AUTO 12 % (21-46); MONOCYTES ABSOLUTE AUTO 2.87 K/mm3 (0.16-1.47); MONOCYTES PERCENT AUTO 31 % (4-13); Mean Corpuscular HGB 29.7 pg (26.0-34.0); Mean Corpuscular HGB Conc 29.8 g/dL (31.5-36.5); Mean Corpuscular Volume 100 fL (80-100); Mean Platelet Volume 12.5 fL (9.1-12.4); NEUTROPHILS ABSOLUTE AUTO 5.01 K/mm3 (1.96-9.15); NEUTROPHILS PERCENT AUTO 55 % (41-73); Platelet Count 108 K/mm3 (150-400); RDW Coefficient Variation 21.2 % (11.7-14.2); RDW Standard Deviation 78.3 fL (35.1-46.3); White Blood Cell Count 9.18 K/mm3 (4.00-11.30)
[2019-03-17 06:01] LABS: Albumin, Blood 2.8 g/dL (3.4-5.0); Albumin/Globulin Ratio 0.7 (0.8-1.8); Bilirubin, Total 1.1 mg/dL (0.1-1.0); Bun/Creatinine Ratio 16.5 (12.0-20.0); Calcium, Blood 8.4 mg/dL (8.5-10.1); Creatinine, Blood 1.58 mg/dL (0.40-1.00); Globulin, Blood 3.8 g/dL (2.2-4.0); Potassium, Blood 5.1 mmol/L (3.5-5.5); Total Protein, Blood 6.6 g/dL (6.4-8.2)
--- NOTE | 2019-03-17 06:11 | NUR ---
SHIFT SUMMARY PT HAS BEEN USING BSC INDENDENTLY DURING THE NIGHT. CPAP ON T/O NIGHT. OXYGEN NOW ON THIS AM AND SATS DROPPING INTOTHE LOWER 80'S. OXYGEN INCREASED TO 3L, RT CALLED FOR A BREATHING TREATMENT. SATS NOW REMAINING ABOVE 88% ON THE NC, WILL CONTINUE TO MONITOR.
--- NOTE | 2019-03-17 09:30 | NUR ---
PT PLEASANT COOP A/O. TALKATIVE. 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 IS STILL AT HOME. AND WILL HAVE DAUGHTER OR HUSB BRING IN LATER. H/R REG, MURMER IS NOTED. NO TELE. LUNGS CLEAR UPPER, CRACKLES LIGHT IN BASES. ON 3L L2. RESP EASY, UNLABORED. BT X4 LAST BM TODAY. STATES NORM. VOIDS PER BSC. INDEPENDANT. BED IN LOW POSITION, CALL LITE IN REACH, CALLS APPROP
--- NOTE | 2019-03-17 10:30 | NUR ---
CALLED DR DUVAL RE BP 102/48 R, 104/59 L. P 84 OKAY HALF LASIX TODAY. WILL REVIEW LATER TODAY. OKAY HOLD LISINOPRIL TODAY. DONE.
--- NOTE | 2019-03-17 16:43 | NUR ---
DR MENTIONED POSS FLUID RESTRICTION. NO ORDERS. ALSO REPORTING B/P UP TO 151/45 WITH CHANGE IN MEDS FROM THIS AM. ASKING FOR BALANCE OF LASIX OR ORDERS,. CALLED TC. CALLED NAGI, TC ALSO CALLED AGAIN. ORDERS FOR LASIX X1 [address] TO CHANGE ORDERS TOMORROW.
--- NOTE | 2019-03-17 16:51 | NUR ---
DR VILLEDA. FLUID RESTRICT AT 2L / DAY. LASIX 40 MG PO X1 NOW.
[2019-03-18 05:53] LABS: Percent Saturation 7.7 % (15.0-50.0)
[2019-03-18 06:00] LABS: Bun/Creatinine Ratio 17.8 (12.0-20.0); Calcium, Blood 8.2 mg/dL (8.5-10.1); Creatinine, Blood 1.8 mg/dL (0.40-1.00); Potassium, Blood 4.9 mmol/L (3.5-5.5)
--- NOTE | 2019-03-18 06:37 | NUR ---
a+o when awake, challenging keeping o2 at acceptable level dispite using CPAP as well as RT interventions, call light in reach, 2L via nc, saline locked, will continue to monitor and treat until bsr given to day shift
[2019-03-18] MEDS ORDERED: CEFD300 PO (18:24)
--- NOTE | 2019-03-18 18:48 | NUR ---
PT DISCHARGED AT 1845 WITH TO TRANSPORT VIA WHEELCHAIR. ALL PAPERS REVIEWED AND EDUCATIONAL MATERIAL SENT. PT 1 PERSON ASSIST TO CHAIR. ALL BELONGINGS WENT WITH PT NO DISTRESS NOTED.
== END 2019-03-18 18:40 | disposition home or self-care (01) | DRG 291 ==
LOC: ER 11:21 → MEDS 11:22
PROVIDERS: Emergency Medicine; ADMIT Student in an Organized Health Care Education/Training Program
DX: I13.0 Hypertensive heart and chronic kidney disease with heart failure and stage 1 through stage 4 chronic kidney disease, or unspecified chronic kidney disease (principal); I50.33 Acute on chronic diastolic (congestive) heart failure; J18.0 Bronchopneumonia, unspecified organism; J96.21 Acute and chronic respiratory failure with hypoxia; Z68.42 Body mass index [BMI] 45.0-49.9, adult; N18.3 Chronic kidney disease, stage 3 (moderate); E11.22 Type 2 diabetes mellitus with diabetic chronic kidney disease; J44.9 Chronic obstructive pulmonary disease, unspecified; E66.01 Morbid (severe) obesity due to excess calories; I48.91 Unspecified atrial fibrillation; G47.33 Obstructive sleep apnea (adult) (pediatric); Z86.718 Personal history of other venous thrombosis and embolism; Z79.01 Long term (current) use of anticoagulants; Z79.4 Long term (current) use of insulin; Z99.81 Dependence on supplemental oxygen; Z87.891 Personal history of nicotine dependence; E78.00 Pure hypercholesterolemia, unspecified; Z86.711 Personal history of pulmonary embolism
CPT/HCPCS: 36415; 71046; 80048; 80053; 82728; 82947; 83540; 83550; 84145; 84484; 85025; 93005; 93010; 94640; 94660; 94760; 94762; 96365; 96367; 99285-25; G0378; J0456; J0696; J7050

== ENCOUNTER 2019-08-07 22:12 | Inpatient (IN) | payer OTHER ==
[~2019-08-07] VITALS: Ht 152.4 cm; Wt 119.6 kg
[~2019-08-07 22:12] MED LIST changes: +Neurontin300 MG PO
[2019-08-07] MEDS ORDERED: THAL50CA PO (22:33)
[2019-08-07] MEDS ORDERED: ALBU2.5V5 INH (22:34)
[2019-08-07] MEDS ORDERED: Lisinopril2.5 MG PO (22:35)
[2019-08-07] MEDS ORDERED: GABA300 PO ×2 (22:35)
[2019-08-07] MEDS ORDERED: POTA10T PO (22:35)
[2019-08-07] MEDS ORDERED: FURO40 PO (22:36)
[2019-08-07] MEDS ORDERED: Zocor20 MG PO (22:36)
[2019-08-07] MEDS ORDERED: Aspir 8181 MG PO (22:36)
[2019-08-07] MEDS ORDERED: ELIQUIS5 MG PO (22:36)
[2019-08-07] MEDS ORDERED: FERSU300 PO (22:37)
[2019-08-07] MEDS ORDERED: MONT10T PO (22:37)
[2019-08-07] MEDS ORDERED: Glipizide Xl2.5 MG PO (22:38)
[2019-08-07 23:56] LABS: Hematocrit 31.2 % (33.0-51.0); Hemoglobin 9.1 g/dL (11.5-16.0); Mean Corpuscular HGB 28.4 pg (26.0-34.0); Mean Corpuscular HGB Conc 29.2 g/dL (31.5-36.5); Mean Corpuscular Volume 98 fL (80-100); Mean Platelet Volume 12.9 fL (9.1-12.4); NRBC ABSOLUTE 0.02 K/mm3 (0.00-0.02); NRBC Auto 0.2 /100 WBC (0.0-0.2); Platelet Count 126 K/mm3 (150-400); RDW Coefficient Variation 18.5 % (11.7-14.2); RDW Standard Deviation 65.8 fL (35.1-46.3); White Blood Cell Count 10.27 K/mm3 (4.00-11.30)
[2019-08-08 00:05] LABS: PCO2 Arterial 48.9 mmHg (35-45); PO2 Arterial 65.7 mmHg (80-100)
[2019-08-08 00:16] LABS: Albumin, Blood 2.7 g/dL (3.4-5.0); Albumin/Globulin Ratio 0.6 (0.8-1.8); BAND PERCENT MAN 8 % (0-8); BASOPHILS PERCENT MAN 0 % (0-2); Bilirubin, Total 0.9 mg/dL (0.1-1.0); Bun/Creatinine Ratio 11.5 (12.0-20.0); Calcium, Blood 8.8 mg/dL (8.5-10.1); Creatinine, Blood 1.91 mg/dL (0.40-1.00); EOSINOPHILS PERCENT MAN 0 % (0-6); Globulin, Blood 4.6 g/dL (2.2-4.0); LYMPHOCYTES ABSOLUTE MAN 1.95 K/mm3 (0.84-5.20); LYMPHOCYTES PERCENT MAN 19 % (21-46); METAMYELOCYTE PERCENT MAN 2 % (0-0); MONOCYTES ABSOLUTE MAN 0.82 K/mm3 (0.16-1.47); MONOCYTES PERCENT MAN 8 % (4-13); MYELOCYTE PERCENT MAN 2 % (0-0); Magnesium, Blood 1.7 mg/dL (1.6-2.4); NEUTROPHILS ABSOLUTE MAN 7.08 K/mm3 (1.96-9.15); Potassium, Blood 3.4 mmol/L (3.5-5.5); SEG NEUTROPHILS PERCENT MAN 61 % (41-73); TOTAL CELLS COUNTED 100; Total Protein, Blood 7.3 g/dL (6.4-8.2); Troponin I 0.09 ng/mL (0.000-0.040)
[2019-08-08] MEDS ORDERED: LEVSOD100 PO (03:32)
[2019-08-08] MEDS ORDERED: CALCIUM + D3 E1 EACH PO (03:35)
--- NOTE | 2019-08-08 05:06 | NUR ---
PATIENT ARRIVED TO [facility] VIA GURNEY FROM ED, PATIENT ABLE TO PIVOT TRANSFER FROM GURNEY TO BED WITH ASSIST BUT WEAK, UNSTEADY AND DYSPNIC WITH EXERTION. PATIENT ADMISSION COMPLETED, FULL BED BATH COMPLETED AND ALL LINEN CHANGED. PATIENT HAS SOME RED EXCORIATED AREAS UNDER HER PANUS AND SCATTERED SCABS ON BLE. PATIENT AND ORIENTED TO ROOM, CALL LIGHT AND HOSPITAL POLICIES. PATIENT PLACED AN BIPAP FOR SLEEP, ISSUES WITH INTERMITTENT O2 DROPS NOTED AND RT AWARE AND ADJUSTING SETTINGS NEEDED. PATIENT VSS, MONITORED CLOSELY.
--- NOTE | 2019-08-08 09:37 | NUR ---
ECHO IN PROGRESS WILL MEDICATE PT ONCE COMPLETE
[2019-08-08 11:07] LABS: Bun/Creatinine Ratio 12.6 (12.0-20.0); Calcium, Blood 8.8 mg/dL (8.5-10.1); Creatinine, Blood 2.23 mg/dL (0.40-1.00)
--- NOTE | 2019-08-08 18:21 | NUR ---
SHIFT NOTE PT HAS HAD DECREASE IN FACIAL AND LOWER LEG EDEMA T/O SHIFT. TRACE AMOUNT OF EDEMA NOTED TO RT LEG WITH MODERATE EDEMA NOTED TO LT LOWER LEG AT END OF SHIFT. LS AT END OF SHIFT WITH FINE CRACKLES NOTED T/O. PT A/O X4 ANSWERING QUESTIONS APPROPRIATELY IN FULL SENTENCES. O2 DECREASED TO 2.5L VIA NASAL CANNULA. PROVIDER IS PLACING NEW ORDERS AT THIS TIME
[2019-08-09 03:21] LABS: Hematocrit 26.6 % (33.0-51.0); Hemoglobin 7.9 g/dL (11.5-16.0); Mean Corpuscular HGB 28.7 pg (26.0-34.0); Mean Corpuscular HGB Conc 29.7 g/dL (31.5-36.5); Mean Corpuscular Volume 97 fL (80-100); Mean Platelet Volume 12.6 fL (9.1-12.4); Platelet Count 126 K/mm3 (150-400); RDW Coefficient Variation 18.5 % (11.7-14.2); RDW Standard Deviation 65.1 fL (35.1-46.3); Red Blood Cell Count 2.75 M/mm3 (3.80-5.20); White Blood Cell Count 7.01 K/mm3 (4.00-11.30)
[2019-08-09 03:44] LABS: Albumin, Blood 2.4 g/dL (3.4-5.0); Albumin/Globulin Ratio 0.5 (0.8-1.8); Bilirubin, Total 0.6 mg/dL (0.1-1.0); Bun/Creatinine Ratio 14.6 (12.0-20.0); Calcium, Blood 8.4 mg/dL (8.5-10.1); Creatinine, Blood 2.54 mg/dL (0.40-1.00); Globulin, Blood 4.4 g/dL (2.2-4.0); Phosphorus, Blood 4.6 mg/dL (2.5-4.9); Potassium, Blood 4.2 mmol/L (3.5-5.5); Total Protein, Blood 6.8 g/dL (6.4-8.2)
[2019-08-09 04:12] LABS: BAND PERCENT MAN 6 % (0-8); BASOPHILS PERCENT MAN 0 % (0-2); EOSINOPHILS PERCENT MAN 0 % (0-6); LYMPHOCYTES ABSOLUTE MAN 0.91 K/mm3 (0.84-5.20); LYMPHOCYTES PERCENT MAN 13 % (21-46); MONOCYTES ABSOLUTE MAN 0.77 K/mm3 (0.16-1.47); MONOCYTES PERCENT MAN 11 % (4-13); NEUTROPHILS ABSOLUTE MAN 5.32 K/mm3 (1.96-9.15); SEG NEUTROPHILS PERCENT MAN 70 % (41-73); TOTAL CELLS COUNTED 100
--- NOTE | 2019-08-09 04:15 | NUR ---
SHIFT SUMMARY: pATIENT FEELING WORRIED ABOUT CURRENT ILLNESS SHE DOES NOT UNDERSTAND WHY SHE IS SICK. O2 DROPS OFTEN EVEN WHILE PATIETN HAS CPAP ON, O2 HAD TO BE ADJUSTED FREQUENTLY, RT ADJUSTED PRESSURES NEEDED. VSS, CALL LIGHT WITHIN REACH, BED LOW AND LOCKED.
--- NOTE | 2019-08-09 09:28 | NUR ---
ASSUMED CARE APPROXIMATELY 0700; ASSISTED PT TO DANGLE POSITION FOR BREAKFAST TRAY; PT ON 3L NC; O2 SATS >92; PT A&O x3; FORGETFUL AT TIMES; DYSPNEA W/ EXERSION; DR. HALE TO BEDSIDE AM; CALL LIGHT IN REACH; BED IN LOWEST POSITON
--- NOTE | 2019-08-09 17:24 | NUR ---
UPDATE PT ALERT, FORGETFUL AT TIMES; PT TRANSFER TO CART FOR IMAGING AT NM APPROXIMATELY 1515; PT CURRENTLY IN ROOM UP AT SIDE OF THE BED EATING DINNER TRAY, SPOUSE AT BEDSIDE; CALL LIGHT IN REACH; BED IN LOWEST POSITION; WILL CONTINUE TO MONITOR UNTIL HAND OFF TO NOC RN
[2019-08-10 04:18] LABS: BASOPHILS PERCENT AUTO 0 % (0-2); EOSINOPHILS ABSOLUTE AUTO 0.07 K/mm3 (0.00-0.68); EOSINOPHILS PERCENT AUTO 1 % (0-6); Hematocrit 29.2 % (33.0-51.0); Hemoglobin 8.7 g/dL (11.5-16.0); IMMATURE GRAN ABSOLUTE AUTO 0.15 K/mm3 (0.00-0.10); IMMATURE GRAN PERCENT AUTO 3 % (0-1); LYMPHOCYTES ABSOLUTE AUTO 1.04 K/mm3 (0.84-5.20); LYMPHOCYTES PERCENT AUTO 20 % (21-46); MONOCYTES ABSOLUTE AUTO 1.15 K/mm3 (0.16-1.47); MONOCYTES PERCENT AUTO 22 % (4-13); Mean Corpuscular HGB 27.9 pg (26.0-34.0); Mean Corpuscular HGB Conc 29.8 g/dL (31.5-36.5); Mean Platelet Volume 12.8 fL (9.1-12.4); NEUTROPHILS ABSOLUTE AUTO 2.74 K/mm3 (1.96-9.15); NEUTROPHILS PERCENT AUTO 53 % (41-73); Platelet Count 144 K/mm3 (150-400); RDW Coefficient Variation 18.3 % (11.7-14.2); RDW Standard Deviation 62.2 fL (35.1-46.3); Red Blood Cell Count 3.12 M/mm3 (3.80-5.20); White Blood Cell Count 5.15 K/mm3 (4.00-11.30)
[2019-08-10 04:22] LABS: Mean Corpuscular Volume 94 fL (80-100)
[2019-08-10 04:44] LABS: Bun/Creatinine Ratio 17.9 (12.0-20.0); Calcium, Blood 8.5 mg/dL (8.5-10.1); Creatinine, Blood 2.07 mg/dL (0.40-1.00); Potassium, Blood 4.6 mmol/L (3.5-5.5)
--- NOTE | 2019-08-10 05:28 | NUR ---
SHIFT SUMMARY: PATIENT RECIEVED 1 UNIT PRBC AND HGB IS NOW TRENDING UP, ALL OTHER VSS. BED LOW AND LOCKED, CALL LIGHT WITHIN REACH.
--- NOTE | 2019-08-10 08:00 | NUR ---
PT SITTING UP ON SIDE OF THE BED FOR BREAKFAST, HAS TV TURNED UP LOUD, SHE IS A BIT SLOW TO ANSWER, DENIES PAIN OR COMPLAINTS, FOLLOWS COMMANDS WELL, LUNGS ARE CLEAR T/O, RESP EVEN AND UNLABORED, NO COUGH NOTED, HRR, TELE IN PLACE RUNNING SR WITH BBB PER TELE MONITOR, SEE STRIP, TRACE EDEMA NOTED TO B/L LE, PPP+1, CAP REFILL <3SEC, VS STABLE, AFEBRILE, IV SITE IS CLEAR AND PATENT, BTX4, ABD ROUND SOFT NONTENDER, VOIDS WITHOUT DIFF, SKIN HAS RASH UNDER PANUS, MAEW, SAKSHI, CALL LIGHT IN REACH.
--- NOTE | 2019-08-10 13:30 | NUR ---
PT RESTING IN BED, WAKES EASILY WHEN NURSE ENTERS ROOM. SPOKE TO HER ABOUT HER DAUGHTER CALLING AND WANTING INFO. SHE IS OK WITH US SPEAKNG WITH HER, BUT COMPLAINS THAT SHE IS TO BOSSY. CALL LIGHT IN REACH.
--- NOTE | 2019-08-10 17:57 | NUR ---
PT DOING OK NO COMPLAINTS OR NEEDS. NO ACUTE CHANGES THIS SHIFT. CALL LIGHT IN REACH.
[2019-08-10 23:45] LABS: Source, Urine Catheter
[2019-08-10 23:51] LABS: Appearance, Urine Clear (Clear); Bilirubin, Urine Neg (Neg); Blood, Urine 1+ (Neg); Color, Urine Yellow (P-Yellow); Glucose Qualitative, Urine Neg (Neg); Ketones, Urine Neg (Neg); Leukocyte Esterase, Urine Neg (Neg); Nitrite, Urine Neg (Neg); Protein, Urine 2+ (Neg); Urobilinogen, Urine NORM (Normal)
[2019-08-11 00:01] LABS: Bacteria Mod /hpf; Red Blood Cells, Urine 0-2 /hpf (0-2); Squamous Epithelial Cells Few /hpf (Few); White Blood Cells, Urine 0-2 /hpf (0-5)
[2019-08-11 03:45] LABS: BASOPHILS ABSOLUTE AUTO 0.01 K/mm3 (0.00-0.23); BASOPHILS PERCENT AUTO 0 % (0-2); EOSINOPHILS ABSOLUTE AUTO 0.11 K/mm3 (0.00-0.68); EOSINOPHILS PERCENT AUTO 2 % (0-6); Hematocrit 29.7 % (33.0-51.0); Hemoglobin 8.9 g/dL (11.5-16.0); IMMATURE GRAN PERCENT AUTO 2 % (0-1); LYMPHOCYTES ABSOLUTE AUTO 0.95 K/mm3 (0.84-5.20); LYMPHOCYTES PERCENT AUTO 19 % (21-46); MONOCYTES ABSOLUTE AUTO 1.02 K/mm3 (0.16-1.47); MONOCYTES PERCENT AUTO 20 % (4-13); Mean Corpuscular HGB 28.7 pg (26.0-34.0); Mean Corpuscular Volume 96 fL (80-100); Mean Platelet Volume 12.8 fL (9.1-12.4); NEUTROPHILS ABSOLUTE AUTO 2.83 K/mm3 (1.96-9.15); NEUTROPHILS PERCENT AUTO 56 % (41-73); Platelet Count 153 K/mm3 (150-400); RDW Coefficient Variation 18.3 % (11.7-14.2); RDW Standard Deviation 64.1 fL (35.1-46.3); White Blood Cell Count 5.02 K/mm3 (4.00-11.30)
[2019-08-11 04:06] LABS: Calcium, Blood 8.9 mg/dL (8.5-10.1); Creatinine, Blood 1.84 mg/dL (0.40-1.00); Potassium, Blood 4.9 mmol/L (3.5-5.5)
[2019-08-11 04:11] LABS: Percent Saturation 16.9 % (15.0-50.0)
--- NOTE | 2019-08-11 05:38 | NUR ---
SHIFT SUMMARY: 63 Y/O OBESE FEMALE RESTED COMFORTABLY ALL SHIFT WHILE WEARING C/PAP, TELEMETRY REFLECTS NSR WITH BBB AND HEART RATE OF 62, DENIES CHEST PAIN, NAUSEA OR SOB, ABLE AMBULATE BATHROOM AND BACK X 1 STANDBY ASSIST WITH GAIT SLOW AND STEADY, PT ANTICIPATES POSSIBLE DISCHARGE HOME TODAY; BED LOW POSITION WITH CALL LIGHT AT SIDE.
--- NOTE | 2019-08-11 07:30 | NUR ---
trialed pt oxygen off this am while up in chair biox was 93 with 2l nc off 81 % after 10 min placed back on 2l pt has crackles bilat and coarse dry cough sob with exertion uses oxygen bleed ion with bpap at home family at bedside req dr parmjit cavazos on pt's cond
--- NOTE | 2019-08-11 09:40 | NUR ---
DR Marlen TAPIA BY TO SEE PT ASKED HIM TO CALL PT DAUGHTER CAROLINA PH NUMBER GIVEN
--- NOTE | 2019-08-11 12:17 | NUR ---
message left with dr cruz on cell re maryse per dr darrick gambino req per his note from aug 09 inpt vs out pt
--- NOTE | 2019-08-11 14:40 | NUR ---
PT TO F/U FOR [facility] OUTPT TALKED WITH NAGI WITH DR Marlen TAPIA
--- NOTE | 2019-08-11 15:48 | NUR ---
pt getting neb tx with rt
--- NOTE | 2019-08-11 17:20 | NUR ---
pt eating dinner s/o at bedside o2 a 2l nc no coverage with s/s
[2019-08-12 03:49] LABS: BASOPHILS ABSOLUTE AUTO 0.01 K/mm3 (0.00-0.23); BASOPHILS PERCENT AUTO 0 % (0-2); EOSINOPHILS ABSOLUTE AUTO 0.07 K/mm3 (0.00-0.68); EOSINOPHILS PERCENT AUTO 1 % (0-6); Hematocrit 30.5 % (33.0-51.0); Hemoglobin 8.7 g/dL (11.5-16.0); IMMATURE GRAN ABSOLUTE AUTO 0.12 K/mm3 (0.00-0.10); IMMATURE GRAN PERCENT AUTO 2 % (0-1); LYMPHOCYTES ABSOLUTE AUTO 1.07 K/mm3 (0.84-5.20); LYMPHOCYTES PERCENT AUTO 19 % (21-46); MONOCYTES ABSOLUTE AUTO 1.38 K/mm3 (0.16-1.47); MONOCYTES PERCENT AUTO 25 % (4-13); Mean Corpuscular HGB 27.8 pg (26.0-34.0); Mean Corpuscular HGB Conc 28.5 g/dL (31.5-36.5); Mean Corpuscular Volume 97 fL (80-100); Mean Platelet Volume 12.5 fL (9.1-12.4); NEUTROPHILS ABSOLUTE AUTO 2.92 K/mm3 (1.96-9.15); NEUTROPHILS PERCENT AUTO 52 % (41-73); Platelet Count 152 K/mm3 (150-400); RDW Standard Deviation 64.8 fL (35.1-46.3); Red Blood Cell Count 3.13 M/mm3 (3.80-5.20); White Blood Cell Count 5.57 K/mm3 (4.00-11.30)
[2019-08-12 04:19] LABS: Albumin, Blood 2.5 g/dL (3.4-5.0); Albumin/Globulin Ratio 0.5 (0.8-1.8); Bilirubin, Total 0.4 mg/dL (0.1-1.0); Bun/Creatinine Ratio 18.5 (12.0-20.0); Calcium, Blood 8.8 mg/dL (8.5-10.1); Creatinine, Blood 1.73 mg/dL (0.40-1.00); Globulin, Blood 4.7 g/dL (2.2-4.0); Phosphorus, Blood 4.1 mg/dL (2.5-4.9); Potassium, Blood 5.1 mmol/L (3.5-5.5); Total Protein, Blood 7.2 g/dL (6.4-8.2)
--- NOTE | 2019-08-12 04:38 | NUR ---
SHIFT SUMMARY PT SLEPT THROUGH MUCH OF THE NIGHT. WOKE MULTIPLE TIMES TO VOID BUT QUICKLY WENT BACK TO SLEEP. CONTINUES TO HAVE FINE CRACKLES IN BILATERAL BASES. SOME MODERATE SOB W/ EXERTION, PT REPORTS THIS BASELINE. PT ON 2 L O2 NC WHILE AWAKE. ONCE SHE WAS READY FOR BED CPAP WAS PLACED W/ 2 L O2 BLEEDIN. PT AMBULATED TO RESTROOM WITH ONLY A SBA AND A FWW. SLOW MOVING AT TIMES BUT STEADY ON HER FEET. NO COMPLAINTS OF PAIN. VITAL SIGNS STABLE.
--- NOTE | 2019-08-12 06:15 | NUR ---
DAUGHTER CAROLINA CALLED THIS AM AND SAID THAT SHE WOULD NOT BE ABLE TO MAKE IT IN TODAY AND REQUESTED A CALL FROM THE DOCTOR. WILL PASS ON TO DAY SHIFT RN.
--- NOTE | 2019-08-12 10:56 | NUR ---
HER FAMILY CAME IN TO BRING HER HER BILLS. HER STAYED. SHE IS WAITING FOR THE DOCTOR TO ROUND. HER HOME O2 EVAL HAS BEEN DONE. SHE WILL NEED A PORTABLE O2 TANK TO GO HOME WITH. SHE ONLY HAS CONCENTRATOR AT HOME FROM [employer]. THERE WAS A BAD YEAT SMELL IN THE ROM BUT IT IS NOT FROM HER. I CHECKED ER FOLDS. NO YEAT RASH. SHE WAS SHOWERED THIS AM ALSO. SHE IS WATCHING TV.
[2019-08-12] MEDS ORDERED: METO25ER PO (13:22)
--- NOTE | 2019-08-12 13:47 | NUR ---
DISCHARGED TO HOME WITH BELONGINS AND INSTRUCTIONS. HER PORTABLE O2 TANK SET ON 3L. HER FAMILY IS WITH HER.
== END 2019-08-12 13:47 | disposition home or self-care (01) | DRG 280 ==
LOC: ER 22:12 → PCU 08-08 02:25
PROVIDERS: Emergency Medicine; Family Medicine; Hospitalist; Internal Medicine; ADMIT Family Medicine
PROC: 30233N1 Transfusion of Nonautologous Red Blood Cells into Peripheral Vein, Percutaneous Approach (ICD-10-PCS; principal; 2019-08-10)
DX: I13.0 Hypertensive heart and chronic kidney disease with heart failure and stage 1 through stage 4 chronic kidney disease, or unspecified chronic kidney disease (principal); J96.21 Acute and chronic respiratory failure with hypoxia; I21.A1 Myocardial infarction type 2; I50.33 Acute on chronic diastolic (congestive) heart failure; Z68.42 Body mass index [BMI] 45.0-49.9, adult; C90.00 Multiple myeloma not having achieved remission; N17.9 Acute kidney failure, unspecified; E66.2 Morbid (severe) obesity with alveolar hypoventilation; Z79.82 Long term (current) use of aspirin; Z79.84 Long term (current) use of oral hypoglycemic drugs; E78.5 Hyperlipidemia, unspecified; J44.9 Chronic obstructive pulmonary disease, unspecified; Z86.718 Personal history of other venous thrombosis and embolism; Z86.711 Personal history of pulmonary embolism; Z87.891 Personal history of nicotine dependence; Z99.81 Dependence on supplemental oxygen; I48.0 Paroxysmal atrial fibrillation; N18.3 Chronic kidney disease, stage 3 (moderate); E11.42 Type 2 diabetes mellitus with diabetic polyneuropathy; D69.6 Thrombocytopenia, unspecified; E11.22 Type 2 diabetes mellitus with diabetic chronic kidney disease; E03.9 Hypothyroidism, unspecified; E78.00 Pure hypercholesterolemia, unspecified; I08.0 Rheumatic disorders of both mitral and aortic valves; I27.20 Pulmonary hypertension, unspecified
CPT/HCPCS: 36415; 36430; 36600; 71046; 71250; 78582; 80048; 80053; 81001; 82728; 82803; 82947; 83540; 83550; 83735; 83880; 84100; 84484; 85025; 86850; 86900; 86901; 86923; 93005; 93010; 93306; 94640; 94660; 94762; 96374; 99285-25; A9540; A9558; J0881; J1940; P9016

== ENCOUNTER 2019-08-20 11:48 | Inpatient (IN) | payer OTHER ==
[~2019-08-20] VITALS: Ht 152.4 cm; Wt 119.6 kg
[~2019-08-20 11:48] MED LIST changes: +ALBU2.5V5 INH; +Aspir 8181 MG PO; +CALCIUM + D3 E1 EACH PO; +ELIQUIS5 MG PO; +FERSU300 PO; +FURO40 PO; +Glipizide Xl2.5 MG PO; +METO25ER PO; +MONT10T PO; +POTA10T PO; +Zocor20 MG PO
[2019-08-20 12:45] LABS: Base Excess Venous 3.1 mmol/L; Bicarbonate Venous 26.5 mmol/L (24.0-30.0); PCO2 Venous 50.6 mmHg (38-42); pH Blood Venous 7.36 (7.34-7.37)
[2019-08-20 12:49] LABS: Hematocrit 33.1 % (33.0-51.0); Hemoglobin 9.3 g/dL (11.5-16.0); Mean Corpuscular HGB 27.1 pg (26.0-34.0); Mean Corpuscular HGB Conc 28.1 g/dL (31.5-36.5); Mean Corpuscular Volume 97 fL (80-100); Mean Platelet Volume 11.5 fL (9.1-12.4); NRBC ABSOLUTE 0.08 K/mm3 (0.00-0.02); NRBC Auto 0.9 /100 WBC (0.0-0.2); Platelet Count 288 K/mm3 (150-400); RDW Coefficient Variation 18.4 % (11.7-14.2); RDW Standard Deviation 63.7 fL (35.1-46.3); Red Blood Cell Count 3.43 M/mm3 (3.80-5.20); White Blood Cell Count 8.64 K/mm3 (4.00-11.30)
[2019-08-20] MEDS ORDERED: METOPROLOL SUCC25 MG PO (12:55)
[2019-08-20] MEDS ORDERED: POTA10T PO (12:55)
[2019-08-20] MEDS ORDERED: NEURONTIN300 MG PO (12:56)
[2019-08-20] MEDS ORDERED: FUROSEMIDE40 MG PO (12:56)
[2019-08-20] MEDS ORDERED: MONTELUKAST SOD10 MG PO (12:56)
[2019-08-20] MEDS ORDERED: SYNTHROID100 MCG PO (12:56)
[2019-08-20] MEDS ORDERED: GLIP2.5ER PO (12:57)
[2019-08-20] MEDS ORDERED: LISINOPRIL2.5 MG PO (12:57)
[2019-08-20] MEDS ORDERED: TIOT18 INH (12:57)
[2019-08-20] MEDS ORDERED: Simvastatin20 MG PO (12:57)
[2019-08-20 13:11] LABS: BAND PERCENT MAN 4 % (0-8); BASOPHILS PERCENT MAN 0 % (0-2); EOSINOPHILS ABSOLUTE MAN 0.08 K/mm3 (0.00-0.68); EOSINOPHILS PERCENT MAN 1 % (0-6); LYMPHOCYTES ABSOLUTE MAN 1.72 K/mm3 (0.84-5.20); LYMPHOCYTES PERCENT MAN 20 % (21-46); MONOCYTES ABSOLUTE MAN 0.86 K/mm3 (0.16-1.47); MONOCYTES PERCENT MAN 10 % (4-13); MYELOCYTE ABSOLUTE MAN 0.08 K/mm3 (0.00-0.00); MYELOCYTE PERCENT MAN 1 % (0-0); NEUTROPHILS ABSOLUTE MAN 5.87 K/mm3 (1.96-9.15); SEG NEUTROPHILS PERCENT MAN 64 % (41-73); TOTAL CELLS COUNTED 100
[2019-08-20 13:40] LABS: Albumin, Blood 2.8 g/dL (3.4-5.0); Albumin/Globulin Ratio 0.5 (0.8-1.8); Bilirubin, Total 0.8 mg/dL (0.1-1.0); Bun/Creatinine Ratio 16.8 (12.0-20.0); Calcium, Blood 8.7 mg/dL (8.5-10.1); Creatinine, Blood 1.91 mg/dL (0.40-1.00); Globulin, Blood 5.7 g/dL (2.2-4.0); Potassium, Blood 5.4 mmol/L (3.5-5.5); Total Protein, Blood 8.5 g/dL (6.4-8.2); Troponin I 0.033 ng/mL (0.000-0.040)
--- NOTE | 2019-08-20 17:39 | NUR ---
PATIENT ADMITTED FROM ER TODAY. NURSE CALLED PROVIDER CONSULT IN TO DR HALE AND HE ASKED TO CALL BACK ON FRIDAY TO SCHEDULE WITH ON GAB DOC. TALKED WITH DAUGHTER AND SHE IS TO BRING IN THE PATIENTS THALIDOMIDE ITS A HOME MED. PATIENT HAS BEEN RESTING SINCE HER ARRIVAL WITH NO DISTRESS NOTED. SHE IS ABLE TO TRANFER TO HER BED BUT IS UNABLE TO STAND UP STRAIGHT. HER IS AT BEDSIDE.
--- NOTE | 2019-08-20 20:12 | NUR ---
PT SITTING UP IN BED WITH AT BEDSIDE. PT DENIES PAIN AT THIS TIME. DENIES SOB, N/V/D. AIDE IN ROOM CHECKING V/S. BED LOW AND LOCKED. CALL QUINONES WITHIN REACH.
[2019-08-21 04:46] LABS: Hematocrit 31.5 % (33.0-51.0); Hemoglobin 8.7 g/dL (11.5-16.0); Mean Corpuscular HGB 27.4 pg (26.0-34.0); Mean Corpuscular HGB Conc 27.6 g/dL (31.5-36.5); Mean Corpuscular Volume 99 fL (80-100); Mean Platelet Volume 11.1 fL (9.1-12.4); NRBC ABSOLUTE 0.07 K/mm3 (0.00-0.02); NRBC Auto 0.9 /100 WBC (0.0-0.2); Platelet Count 261 K/mm3 (150-400); RDW Coefficient Variation 18.3 % (11.7-14.2); RDW Standard Deviation 64.5 fL (35.1-46.3); Red Blood Cell Count 3.18 M/mm3 (3.80-5.20); White Blood Cell Count 8.19 K/mm3 (4.00-11.30)
[2019-08-21 05:20] LABS: BAND PERCENT MAN 10 % (0-8); BASOPHILS PERCENT MAN 0 % (0-2); EOSINOPHILS PERCENT MAN 0 % (0-6); LYMPHOCYTES ABSOLUTE MAN 1.55 K/mm3 (0.84-5.20); LYMPHOCYTES PERCENT MAN 19 % (21-46); METAMYELOCYTE ABSOLUTE MAN 0.16 K/mm3 (0.00-0.00); METAMYELOCYTE PERCENT MAN 2 % (0-0); MONOCYTES ABSOLUTE MAN 0.98 K/mm3 (0.16-1.47); MONOCYTES PERCENT MAN 12 % (4-13); MYELOCYTE ABSOLUTE MAN 0.32 K/mm3 (0.00-0.00); MYELOCYTE PERCENT MAN 4 % (0-0); NEUTROPHILS ABSOLUTE MAN 5.15 K/mm3 (1.96-9.15); SEG NEUTROPHILS PERCENT MAN 53 % (41-73); TOTAL CELLS COUNTED 100
--- NOTE | 2019-08-21 05:22 | NUR ---
PT WORE CPAP AND SLEPT LITTLE, DESATURATED REPEATEDLY, KEPT PULLING OFF HER CPAP, RT CAME SEVERAL TIMES TO SEE HER AND WE KEPT ADJUSTING HER CPAP AND SETTINGS. FINALLY THE PATEINT ASKED TO BE PUT BACK ON NASAL CANNULA. SHE IS CURRENTLY AT 5L ON N/C. BED LOW AN DLOCKED AND ALARMED.
[2019-08-21 07:23] LABS: Bun/Creatinine Ratio 19.2 (12.0-20.0); Calcium, Blood 8.5 mg/dL (8.5-10.1); Creatinine, Blood 1.72 mg/dL (0.40-1.00); Magnesium, Blood 2.1 mg/dL (1.6-2.4); Potassium, Blood 4.9 mmol/L (3.5-5.5); Troponin I 0.027 ng/mL (0.000-0.040)
--- NOTE | 2019-08-21 11:47 | NUR ---
DR ROCK IN TO SEE PT.
--- NOTE | 2019-08-21 16:42 | NUR ---
SHIFT SUMMARY- PT A/OX4. 1 ASSIST UP TO BSC. PT DENIES ANY COMPLAINTS T/O THE DAY. LS WITH CRACKLES IN THE BASES, ON 4L N/C. CPAP AT HS WITH CONT BIOX. SOB WITH EXERTION. TELE NSR AT 66. NO EDEMA PRESENT. CARDIOLOGY CONSULT COMPLETED. NO OTHER ACUTE CHANGES THIS SHIFT.
--- NOTE | 2019-08-21 17:29 | NUR ---
SPOKE WITH DR ROCK, PER DR ROCK STOP ELIQUIS AND START PT ON HEPARIN GTT THIS EVENING PER PHARMACY STARTING AT 2100.
[2019-08-21 18:11] LABS: International Normalized Ratio 1.3; Prothrombin Time Results 13.5 Sec (9.7-11.5)
--- NOTE | 2019-08-21 21:51 | NUR ---
RN CALLED PT SATS WERE DEC ON HOME CPAP, I ORGINALLY SET PT UP ON HOME CPAP W/5 L BLEED IN EARLIER AND RN HAS INCREASED IT TO 8L. HAD THE SAME PROBLEM LAST NIGHT WHEN PT WAS USING OUR CPAP.
--- NOTE | 2019-08-22 03:55 | NUR ---
INCREASED CPAP SETTINGS PT HAS REQUIRED AN INCREASE IN HER CPAP SETTINGS THIS SHIFT. PT HOME DOSE SETTING OF 4/20 ON CPAP HAS NOT BEEN ADEQUATE TO MAINTAIN HER SATS ABOVE 90%. WHILE SLEEPING HER SATS DROP TO THE MID 80'S. RESPIRATORY INCREASED PT CPAP SETTING TO 10-20 WITH 10-15 L BLEED IN. PT MAINTAINED HER SATS UNTIL ABOUT 0300 WHEN PT SPOUSE CAME OUT OF THE ROOM TO NOTIFY ME THAT PT SATS HAD DROPPED TO 54% WHEN I WALKED IN THE ROOM PT HAD HER CPAP OFF AND HAD TAKEN OFF HER GOWN AND TELE. SHE STATES THAT SHE DIDNT KNOW WHO TOOK HER GOWN AND TELE OFF AND THAT SHE DID NOT REMEMBER DOING IT. RT CALLED AND NOTIFIED THAT HER SATS HAD DROPPED. RT ADJUSTED PT SETTINGS FROM 10-20 TO 18 AND PLACED 7L BLEED IN AND WE ARE NOW USING OUR CPAP MACHINE INSTEAD OF PT HOME CPAP. HOB OF BED IS ELEVATED, PT IS TOLERATING THESE SETTING AND SATS WNL AT THIS TIME. PT IS CLEARLY FLUID OVERLOADED. CRACKLES UPON AUSCULTATION. DRS ARE AWARE OF THIS AND ARE CAREFULLY DIURESING DUE TO HER HF. PER RT PT HAD DIFFICULTIES MAINTAINING HER SATS ON CPAP LAST NIGHT WELL. PT DOES WELL ON 4L WHILE AWAKE, BUT DSATS QUICKLY WHILE SLEEPING OR AMBULATING. DR. CHRISTIE CALLED AND NOTIFIED OF PT INCREASED NEEDS ON CPAP, AND THAT HER SETTINGS HAVE NEEDED TO BE INCREASED. THERE WERE NO ADDITIONAL ORDERS. HE STATES JUST TO WATCH FOR NOW. PT A/OX4, CAPILLARY REFILL WNL, SKIN IS WARM AND DRY. SKIN COLOR IS WNL. PT HAS BEEN VOIDING THIS SHIFT. WILL CONTINUE TO MONITOR AND STAY IN COMMUNICATION WITH RT IF HER NEEDS CONTINUE TO INCREASE.
[2019-08-22 04:53] LABS: Hematocrit 28.9 % (33.0-51.0); Mean Corpuscular HGB 27.3 pg (26.0-34.0); Mean Corpuscular HGB Conc 27.7 g/dL (31.5-36.5); Mean Corpuscular Volume 99 fL (80-100); NRBC ABSOLUTE 0.05 K/mm3 (0.00-0.02); NRBC Auto 0.7 /100 WBC (0.0-0.2); Platelet Count 232 K/mm3 (150-400); RDW Coefficient Variation 18.8 % (11.7-14.2); RDW Standard Deviation 66.2 fL (35.1-46.3); Red Blood Cell Count 2.93 M/mm3 (3.80-5.20); White Blood Cell Count 7.14 K/mm3 (4.00-11.30)
--- NOTE | 2019-08-22 04:54 | NUR ---
SHIFT SUMMARY PT HAS SLEPT ON AND OFF T/O THE NOC THIS SHIFT. HEPARIN GTT HAS BEEN STARTED THIS SHIFT AND IS INFUSING ORDERED. PT CPAP SETTINGS HAVE NEEDED TO BE INCREASED SEVERAL TIMES THIS SHIFT, DUE TO SATS DROPPING LOW 54%, SEE PRIOR NURSING NOTES. PT HAS NOW BEEN SWITCHED OVER TO BIPAP AND IS TOLERATING THAT MUCH BETTER THAN CPAP. SHE IS MAINTANING SATS ABOVE 95% WITH 7L BLEED IN. PT BECOMES HYPOXIC WITH ANY EXERTION AND REQUIRES O2 AT ALL TIMES. LUNGS WITH CRACKLES. TRACE AMOUNT OF EDEMA TO RIGHT ANKLE NOTED THIS SHIFT. PT HAS VOIDED 600 MLS THIS SHIFT. VITALS ARE STABLE. PT IS A/OX4. PT SINUS ELLIS ON TELE, THIS HAS BEEN HER BASELINE SINCE ADMISSION. THE HIGHEST HER RATE HAS GONE IS 80 PER DRAWER FITTER. NO OTHER CHANGES TO REPORT. PLAN IS FOR [facility]ATH FRIDAY OR FRIDAY. BED IN LOWEST POSITION, CALL LIGHT WITHIN REACH. WILL CONTINUE TO MONITOR AND REPORT TO ONCOMING RN.
--- NOTE | 2019-08-22 05:03 | NUR ---
BIPAP DR. CHRISTIE NOTIFIED THAT PT SWITCHED FORM CPAP TO BIPAP WITH 7L BLEED IN. HE STATES "OK THATS FINE".
[2019-08-22 05:11] LABS: Albumin, Blood 2.6 g/dL (3.4-5.0); Anion Gap 4 mmol/L (6-16); Blood Urea Nitrogen 35 mg/dL (8-24); Bun/Creatinine Ratio 19.9 (12.0-20.0); CO2, Blood 30 mmol/L (21-32); Calcium, Blood 8.5 mg/dL (8.5-10.1); Chloride, Blood 106 mmol/L (98-108); Creatinine, Blood 1.76 mg/dL (0.40-1.00); Glomerular Filtration Rate 31 (60-); Glucose, Blood 104 mg/dL (70-99); Phosphorus, Blood 4.2 mg/dL (2.5-4.9); Potassium, Blood 4.7 mmol/L (3.5-5.5); Sodium, Blood 140 mmol/L (136-145)
[2019-08-22 05:34] LABS: BAND PERCENT MAN 23 % (0-8); BASOPHILS PERCENT MAN 0 % (0-2); EOSINOPHILS ABSOLUTE MAN 0.14 K/mm3 (0.00-0.68); EOSINOPHILS PERCENT MAN 2 % (0-6); LYMPHOCYTES ABSOLUTE MAN 1.07 K/mm3 (0.84-5.20); LYMPHOCYTES PERCENT MAN 15 % (21-46); METAMYELOCYTE ABSOLUTE MAN 0.21 K/mm3 (0.00-0.00); METAMYELOCYTE PERCENT MAN 3 % (0-0); MONOCYTES ABSOLUTE MAN 0.57 K/mm3 (0.16-1.47); MONOCYTES PERCENT MAN 8 % (4-13); MYELOCYTE ABSOLUTE MAN 0.14 K/mm3 (0.00-0.00); MYELOCYTE PERCENT MAN 2 % (0-0); NEUTROPHILS ABSOLUTE MAN 4.99 K/mm3 (1.96-9.15); SEG NEUTROPHILS PERCENT MAN 47 % (41-73); TOTAL CELLS COUNTED 100
--- NOTE | 2019-08-22 10:47 | NUR ---
DR ROCK IN TO SEE PT. SPOKE WITH HIM REGARDING PT BRADYING DOWN INTO THE 40'S LAST NIGHT AND MID 50'S TODAY. PER DR ROCK OK TO HOLD METOPROLOL BUT GO AHEAD AND GIVE NORPACE THIS AM.
--- NOTE | 2019-08-22 16:38 | NUR ---
SHIFT SUMMARY- PT A/OX4, 1 ASSIST UP TO BSC. PT HAS BEEN SLEEPY T/O THE DAY REPORTS DID NOT SLEEP WELL LAST NIGHT BUT DOES AWAKE TO VERBAL STIMULI. LS WITH CRACKLES IN THE BASES, ON 5L OXYMIZER. TELE SB WITH BBB AT 54. PT ELLIS'S INTO THE HIGH 40'S AT TIMES, DR ROCK AWARE AND ELISEO CONTINUED. PT REMAINS ON HEPARIN GTT AT 27.7ML/HR, NEXT PTT AT 1900. PT WITH 550ML URINE OUTPUT SO FAR THIS SHIFT. OXIMETRY STUDY TONIGHT WITH HOME CPAP AND 2L BLEED. NO OTHER ACUTE CHANGES THIS SHIFT. POSSIBLE RIGHT HEART CATH FRIDAY OR FRIDAY.
--- NOTE | 2019-08-23 04:29 | NUR ---
SHIFT SUMMARY PT HAS RESTED OFF AND ON T/O THE NIGHT. PT HAD SLEEP STUDY TONIGHT AND WORE HER HOME CPAP, PT STARTED AT HER BASELINE OF 2L, BUT COULD NOT SUSTAIN HER SATS ABOVE 90%. ON 2L O2 SHE QUICKLY DESATS TO THE MID 80'S. PT HAS NOW BEEN INCREASED TO 15L BLEED IN PER RT, AND THAT IS THE ONLY WAY SHE IS ABLE TO MAINTAIN HER SATS ABOVE 90%. PT WEARS 5L VIA OXYMIZER WHILE AWAKE AND MAINTAINS HER SATS ABOVE 90%. PT BECOMES VERY SOB WALKING ANY SHORT AMOUNT OF DISTANCE. HEPARIN GTT INFUSING PER ORDERS, PHARMACY MANAGING, SHE HAS REQUIRED A RATE INCREASE WITH EACH PT. PT IV BECAME VERY POSITIONAL THIS MORNING, AND BECAME VERY DIFFICULT TO FLUSH, ANY SLIGHT MOVEMENT SET THE PUMP OFF. THIS RN, AND MARCELO ANDRADE BELL SPINNER ATTEMPTED TO START IV WITHOUT SUCCESS. SREE JANG RN OBTAINED A 20G USING ULTRASOUND. POSSIBLE CARDIAC CATH TODAY OR FRIDAY. THERE WHERE NO SPECIFIC ORDERS GIVEN LAST SHIFT WHICH DAY CATH WOULD TAKE PLACE PT MADE NPO AT MIDNIGHT JUST IN CASE. PT ON TELE, AN AVERAGE HR OF 50 T/O THE NIGHT WITH A BBB. FIBREGLASS GUN HAND AWARE OF PT BRADYCARDIA. 700 MLS OF URINE OUT THIS SHIFT. PT CELEBRATED A BIRTHDAY YESTERDAY, AND HER DAUGHTER BROUGHT PT A SMALL CUPCAKE. NO ACUTE CHANGES TO REPORT. PT DENIES PAIN. BED IN LOWEST POSITION, CALL LIGHT WITHIN REACH. WILL CONTINUE TO MONITOR AND REPORT TO ONCOMING RN.
--- NOTE | 2019-08-23 05:19 | NUR ---
LABS-APTT APTT DUE AT 0500. LAB DID NOT GO IN ROOM TO DRAW LABS, DUE TO PT BEING IN THE MIDDLE OF SLEEP STUDY, THEY DID NOT NOTIFY ME OF THIS, AND THERE WERE NO PTT RESULTS AVALIBLE AT THE TIME ORDERED. CALLED LAB AT 0515, TO FIND OUT WHAT WAS GOING ON AND EXPLAINED TO LAB THAT PT ON HEPARIN GTT AND HER SLEEP STUDY CAN BE INTERRUPTED MONITORING HER LEVELS WHILE ON HEPARIN TAKES PRECEDENCE. LAB CAME UP IMMEDIATELY AND OBTAINED PT LABS.
--- NOTE | 2019-08-23 06:32 | NUR ---
V-TACH CALL FROM PCU SENIOR SYSTEM OPERATOR AT 0607 THAT PT HAD A 5 SEC RUN OF VTAC RATE OF 120. WHEN I WENT IN TO CHECK ON PT, SHE WAS SLEEPING WITHOUT S/S OF DISTRESS. I WOKE PT UP TO ASK IF SHE FELT OK, AND SHE SAID YES. VITALS OBTAINED AND WERE STABLE. UNEMPLOYMENT EXAMINER NOTIFIED, AND JUSTYNA CHENG NOTIFIED AT 0628, HE WAS NOTIFIED OF PT CARDIAC HISTORY. THERE WERE NO ADDITIONAL ORDERS. HE STATES JUST TO WATCH FOR NOW. PT BACK TO HER BASELINE RATE OF SB/BB 50'S AT THIS TIME PER SENIOR SYSTEM OPERATOR.
[2019-08-23 10:24] LABS: Hematocrit 31.1 % (33.0-51.0); Hemoglobin 8.5 g/dL (11.5-16.0); Mean Corpuscular HGB 27.6 pg (26.0-34.0); Mean Corpuscular HGB Conc 27.3 g/dL (31.5-36.5); Mean Corpuscular Volume 101 fL (80-100); Mean Platelet Volume 11.2 fL (9.1-12.4); NRBC ABSOLUTE 0.03 K/mm3 (0.00-0.02); NRBC Auto 0.5 /100 WBC (0.0-0.2); Platelet Count 232 K/mm3 (150-400); RDW Standard Deviation 68.4 fL (35.1-46.3); Red Blood Cell Count 3.08 M/mm3 (3.80-5.20); White Blood Cell Count 5.97 K/mm3 (4.00-11.30)
[2019-08-23 10:41] LABS: Bun/Creatinine Ratio 18.9 (12.0-20.0); Calcium, Blood 8.5 mg/dL (8.5-10.1); Creatinine, Blood 1.96 mg/dL (0.40-1.00); Potassium, Blood 5.4 mmol/L (3.5-5.5)
[2019-08-23 10:49] LABS: BAND PERCENT MAN 5 % (0-8); BASOPHILS PERCENT MAN 0 % (0-2); EOSINOPHILS ABSOLUTE MAN 0.17 K/mm3 (0.00-0.68); EOSINOPHILS PERCENT MAN 3 % (0-6); LYMPHOCYTES ABSOLUTE MAN 1.55 K/mm3 (0.84-5.20); LYMPHOCYTES PERCENT MAN 26 % (21-46); MONOCYTES ABSOLUTE MAN 0.83 K/mm3 (0.16-1.47); MONOCYTES PERCENT MAN 14 % (4-13); SEG NEUTROPHILS PERCENT MAN 52 % (41-73); TOTAL CELLS COUNTED 100
--- NOTE | 2019-08-23 13:51 | NUR ---
PT TRANSFERED. PT TRANSFERED TO PCU FROM [facility]. NO BLOCKAGES FOUND DURING ANGIO. R RADIAL ACCESS SITE INTACT. NO HEMATOMA NOTED & SURROUNDING TISSUE SOFT. PT EDUCATED ON RESTRICTIONS. WILL CONTINUE TO MONITOR.
--- NOTE | 2019-08-23 16:56 | NUR ---
SHIFT SUMMARY NO HEMATOMA OR BLEEDING AT TR BAND SITE ON THE R WRIST. PT REMINDED FREQUENTLY NOT TO USE THAT HAND/ARM. AT BEDSIDE. 1CC REMOVED FROM TR BAND SO FAR. PT IN STABLE CONDITION WITH VSS. PT AWAKE & ALERT ON 4L O2 VIA OXYMIZER. NO OTHER CHANGES IN ASSESSMENT AT THIS TIME. WILL CONTINUE TO MONITOR UNTIL TURNOVER IS COMPLETE.
--- NOTE | 2019-08-23 22:12 | NUR ---
ATTEMPTED TO PUT CPAP ON PT RT TO ROOM WITH RN TO PLACED PT ON CPAP FOR BED. SATS DIPPED DOWN QUICKLY TO MID 80'S. BLLED IN INCREASED, PT SATS REMAIN LOW. PER RT PLACED PT BACK ON OXIMIZER AT 4L, PT SATS INCREASED T0 95%. AFTER DUISCUSSION W/ RT PT LEFT ON OXIMIZER FOR TONIGHT, W/ REQUEST TO CALL RT FOR ANY DESAT TO POSSIBLY TRY BIPAP. PT RESTING COMFORTABLY NOW.
[2019-08-24 04:51] LABS: Hematocrit 32.7 % (33.0-51.0); Hemoglobin 8.5 g/dL (11.5-16.0); Mean Corpuscular HGB 27.5 pg (26.0-34.0); Mean Platelet Volume 11.2 fL (9.1-12.4); NRBC ABSOLUTE 0.02 K/mm3 (0.00-0.02); NRBC Auto 0.4 /100 WBC (0.0-0.2); Platelet Count 197 K/mm3 (150-400); RDW Coefficient Variation 19.5 % (11.7-14.2); Red Blood Cell Count 3.09 M/mm3 (3.80-5.20); White Blood Cell Count 5.59 K/mm3 (4.00-11.30)
[2019-08-24 04:59] LABS: Mean Corpuscular Volume 106 fL (80-100)
[2019-08-24 05:07] LABS: Albumin, Blood 2.6 g/dL (3.4-5.0); Anion Gap 7 mmol/L (6-16); Blood Urea Nitrogen 41 mg/dL (8-24); Bun/Creatinine Ratio 16.9 (12.0-20.0); CO2, Blood 27 mmol/L (21-32); Calcium, Blood 8.7 mg/dL (8.5-10.1); Chloride, Blood 105 mmol/L (98-108); Creatinine, Blood 2.43 mg/dL (0.40-1.00); Glomerular Filtration Rate 21 (60-); Glucose, Blood 70 mg/dL (70-99); Phosphorus, Blood 6.1 mg/dL (2.5-4.9); Potassium, Blood 5.6 mmol/L (3.5-5.5); Sodium, Blood 139 mmol/L (136-145)
[2019-08-24 05:19] LABS: BAND PERCENT MAN 4 % (0-8); BASOPHILS PERCENT MAN 0 % (0-2); EOSINOPHILS ABSOLUTE MAN 0.05 K/mm3 (0.00-0.68); EOSINOPHILS PERCENT MAN 1 % (0-6); LYMPHOCYTES ABSOLUTE MAN 1.62 K/mm3 (0.84-5.20); LYMPHOCYTES PERCENT MAN 29 % (21-46); METAMYELOCYTE ABSOLUTE MAN 0.05 K/mm3 (0.00-0.00); METAMYELOCYTE PERCENT MAN 1 % (0-0); MONOCYTES ABSOLUTE MAN 0.89 K/mm3 (0.16-1.47); MONOCYTES PERCENT MAN 16 % (4-13); NEUTROPHILS ABSOLUTE MAN 2.96 K/mm3 (1.96-9.15); SEG NEUTROPHILS PERCENT MAN 49 % (41-73); TOTAL CELLS COUNTED 100
--- NOTE | 2019-08-24 05:31 | NUR ---
SHIFT SUMMARY PT SLEEPING IN ROOM COMFORTABLY AT THIS TIME. NO ACUTE CHANGES IN STATUS T/O NIGHT. PT SLEPT WELL. ATTEMPED TO PLACE PT ON CPAP AT BEDTIME WITH RT IN ROOM. PT DESAT TO 85% WHILE ON CPAP WITH 8L BLEED IN. PT PLACED BACK ON OXIMIZER AT 4L AND SATS INCREASED TO 95%. PER RT PT LEFT ON OXIMIZER FOR TONIGHT. THIS AM PT REPORTED THAT HER HOME CPAP MASK IS THE WRONG SIZE AND NEEDS A NEW ONE. WILL REPORT TO RT TODAY. DENIED CP OR SOB AT REST. SOME DYSPNEA W/ EXERTION. PT 1 ASSIST TO BSC. PT SLEEPS VERY HARD AND TAKES SIGNIFICANT VERBAL CUES AND SHAKING OF SHOULDER TO AWAKEN. PT IS AOX4 ONCE AWAKE. DENIES OTHER NEEDS. CALL LIGHT IN REACH.
--- NOTE | 2019-08-24 14:37 | NUR ---
Initial Visit: Palliative Care Consult for Advanced Care Planning. Pt is resting in bed with at bedside. Pt is A&OX4 and denies pain at this time. Pt reports mild dypnea and states the oxygen is helping with SOB. She denies nausea and anxiety. Engaged in therapeutic discussion regarding advanced care planning. Pt reports living at home with her and son. At this time of conversation leaves room. Pt reports she uses a walker for ambulation with the exception of her bedroom. She reports the door way to her bedroom is too narrow for walker to fit through. Pt uses the wall and furniture for assistance of ambulation in the bedroom. Pt reports ability to bathe herself independently but does need help with dressing. She reports continence of bowel and bladder. Engaged in therapeutic discussion regarding disease process of CHF. Assessed Pt's understanding of CHF. Pt reports nothing was found with the cardiac procedure that was performed. Educated in simple clear and easy to understands language regarding disease process. Pt with flat affect and slow to respond with education. Level of understanding is low. Educated Pt on the importance of routine cnversations with PCP and specialists regarding her disease process. Suggested to write questions she has down on paper prior to visits and to write on paper as answers are provided. Listened as Pt expresses mild frustration regarding the number of visits she receives throughout the day. Validated Pt's concerns and educated on the importance of having a large care team. Listened as Pt reports wanting to go to SNF to help with regaining some of her strength. Pt reports no other concerns. Spoke with bedside RN Kellie and discussed case. Pt may benefit from continued education regarding her disease process. She would benefit from simple easy to understand communication. Palliative Care will remain available.
--- NOTE | 2019-08-24 18:22 | NUR ---
SHIFT SUMMARY PT CONTINUES TO REQUIRE OXYGEN 4L VIA OXIMIZER AND MAINTAINS SATS 90-93%. PT CONTINUES TO STILL HAVE EXERTIONAL DYSPNEA AND IS ONLY ABLE TO AMBULATE SHORT DISTANCES, SUCH TO THE RESTROOM. TELEMETRY CONTINUES TO SHOW PT TO BE SINUS ELLIS WITH BBB. PT HAS BEEN UP IN CHAIR MOST OF THE DAY AND HAS TOLERATED WELL.
--- NOTE | 2019-08-24 21:17 | NUR ---
RX pts own med DTR Osiris says she brought in 2 boxes because 1 box only had 1 pill left. 28 to 30 day supply in second box reported. PT is on oral chemo for multiple myoloma and gets rx mail order. PT lives in [place] with Spouse. Box is white and in ziplock labeled chemo. PCU Charge Addison LU attempting to locate PT's own med. She was transferred from medical floor yesterday from room 310. PT has been on high flow oygen 4 l oximizer and bioxx. Noted alam and PT had CPAP on with oxygen turned off. Oxygen 5 l bleed in to cpap to maintain sats 90 % currently 94% at rest.
[2019-08-25 04:02] LABS: Hematocrit 29.3 % (33.0-51.0); Hemoglobin 8.2 g/dL (11.5-16.0); Mean Corpuscular HGB 27.7 pg (26.0-34.0); Mean Platelet Volume 11.3 fL (9.1-12.4); NRBC ABSOLUTE 0.03 K/mm3 (0.00-0.02); NRBC Auto 0.4 /100 WBC (0.0-0.2); Platelet Count 201 K/mm3 (150-400); RDW Coefficient Variation 18.9 % (11.7-14.2); RDW Standard Deviation 67.1 fL (35.1-46.3); Red Blood Cell Count 2.96 M/mm3 (3.80-5.20); White Blood Cell Count 7.12 K/mm3 (4.00-11.30)
[2019-08-25 04:20] LABS: Mean Corpuscular Volume 99 fL (80-100)
[2019-08-25 04:26] LABS: Albumin, Blood 2.8 g/dL (3.4-5.0); Anion Gap 5 mmol/L (6-16); Blood Urea Nitrogen 52 mg/dL (8-24); Bun/Creatinine Ratio 19.4 (12.0-20.0); CO2, Blood 30 mmol/L (21-32); Calcium, Blood 8.9 mg/dL (8.5-10.1); Chloride, Blood 102 mmol/L (98-108); Creatinine, Blood 2.68 mg/dL (0.40-1.00); Glomerular Filtration Rate 19 (60-); Glucose, Blood 79 mg/dL (70-99); Potassium, Blood 5.5 mmol/L (3.5-5.5); Sodium, Blood 137 mmol/L (136-145)
[2019-08-25 04:47] LABS: BAND PERCENT MAN 8 % (0-8); BASOPHILS PERCENT MAN 0 % (0-2); EOSINOPHILS ABSOLUTE MAN 0.07 K/mm3 (0.00-0.68); EOSINOPHILS PERCENT MAN 1 % (0-6); LYMPHOCYTES ABSOLUTE MAN 1.63 K/mm3 (0.84-5.20); LYMPHOCYTES PERCENT MAN 23 % (21-46); METAMYELOCYTE ABSOLUTE MAN 0.28 K/mm3 (0.00-0.00); METAMYELOCYTE PERCENT MAN 4 % (0-0); MONOCYTES ABSOLUTE MAN 0.85 K/mm3 (0.16-1.47); MONOCYTES PERCENT MAN 12 % (4-13); NEUTROPHILS ABSOLUTE MAN 4.27 K/mm3 (1.96-9.15); SEG NEUTROPHILS PERCENT MAN 52 % (41-73); TOTAL CELLS COUNTED 100
--- NOTE | 2019-08-25 05:35 | NUR ---
unable to locate PT's own med despite assist from Addison LUcharge master coordinator. Discussed with DTR Osiris and Spouse no chemo oral had been given 08/24/19 due to no med available. Last administered on medical floor on 08/23/19 when PT had been in room 310 per report. DTR says PT gets RX mailorder and she had brought in 1 box with 1 pill and another with 28 to day supply. PT continues to need 4 l high flow oximeter or 5 l or more with CPAP. Pt tolerated CPAP for around 3 hours before she [facility]. Up to bedside commode with assist voids small amts. DTR says PT's DR at [facility] said PT needs to be in SNF due to declined medical condition. PT is full code currently on tele monitor with bradycardia rate 49 to 53. Able to use call ramos and communicate. PT lives in [place] with Spouse. Recently DC home readmitted several days later. Denies pain or acute distress. Creatinine is more elevated this AM, not previously seeing nephrology per PT's DTR. SW and pallative care involved in DC plan.
--- NOTE | 2019-08-25 17:34 | NUR ---
Brief Pt visit this evening. Received call from bedside RN reporting Pt has Advanced Directive completed but has questions regarding signatures. Pt sitting in chair upon arrival. Pt's daughter present and reports helping Pt complete AD. Pt chooses Full treatment for each sceanrio mentioned in AD. Educated on each condition mentioned in AD including risk factors. Pt confirms wishes remain the same. Educated on witness signatures. No other concerns reported at this time.
--- NOTE | 2019-08-25 18:35 | NUR ---
PCU DAYSHIFT SUMMARY PATIENT REMAINS ALERT AND ORIENTED TO SELF, LOCATION AND SITUATION. CONFUSED TO DATE AT TIMES - REORIENTS EASILY. PATIENT SLOW TO RESPOND T/O SHIFT. PATIENT IS MORBIDLY OBESE WITH MODERATE HYPOVOLEMIA NOTED WITH SHALLOW RESPIRATIONS AND MOIST COUGH. PATIENT ENCOURAGED TO COUGH AND DEEP BREATH T/O SHIFT - WEAK COUGH NOTED WITH NO SPUTUM PRODUCTION. PATIENT UP OUT OF BED WITH SBA AND FWW TO BATHROOM. WAS ABLE TO SHOWER HERSELF TODAY WITH MODERATE ASSISTANCE. PATIENT REMAINED IN SINUS ELLIS T/O SHIFT IN THE 40'S WITH NO CARDIAC EVENTS NOTED PER FARM LOAN INSPECTOR JOSE F Berm[place] PATIENT DENIES ANY PAIN. PATIENT REMAINED ON 4 LPM OXYMIZER T/O SHIFT - OFFERED PATIENT CPAP T/O DAY AND PATIENT REFUSED. VSS. NO ACUTE DISTRESS NOTED. CALL LIGHT W/I REACH. PATIENT RESTING IN BED WITH HOB ELEVATED GREATER THAN 30 DEGREES. WILL CONTINUE TO MONITOR AND REPORT TO NOC SHIFT TABITHA Osorio
--- NOTE | 2019-08-25 18:39 | NUR ---
Spiritual Care inital note: Pt and family non-gnosticist. Kandy was sleeping when I entered room and only awakened briefly to voice. She could not stay awake for conversation. I met with her spouse at bedside. I was tasked to speak to pt/spouse about completing an Advanced Directive/POLST. Spouse, Delmar, admitted to me that he is illiterate. The longer we spoke, I realized that perhaps both pt and spouse have significant medical illiteracy. Spouse admits he really does not understand what is happening to his . I gently explained in simple terms the purpose and benefits of advanced care planning to Delmar. He told me that Kandy usually "handles this sort of stuff." I recommend Kandy's multiple illnesses, prognosis, options are carefully explained to them in understandable terms and then verify their comprehension. Delmar did not want prayer/spiritual support. I will remain available.
[2019-08-26 04:18] LABS: Percent Saturation 20.8 % (15.0-50.0)
--- NOTE | 2019-08-26 05:16 | NUR ---
EPISODE CONFUSION PT WOKE CONFUSED, REMOVING GOWN, TELEMETRY STICKERS, AND CONTINUOUS PULSE OX. WHEN ASKING PT WHAT SHE WAS DOING SHE STATED "I'M TALKING TO MY DOGGY." WHEN THEN ASKING THE PT IF SHE KNEW WHERE SHE WAS, SHE STATED, "BIG DOG." WHEN ASKING IF SHE KNEW WHAT DAY IT WAS, SHE SAID, "LITTLE DOG." PT THEN REPORTED NEEDING TO USE RESTROOM AND WAS ASSISTED INTO THE BATHROOM W/ FWW. UPON RETURN TO BED, PT RE-ANSWERING ORIENTATION Q's APPROPRIATELY.
--- NOTE | 2019-08-26 05:24 | NUR ---
SHIFT SUMMARY PT A&O X4 W/ EPISODE OF CONFUSION, SEE PREVIOUS NOTE. VSS. MONITOR SHOWS SB, HR 40's-50's. SPO2 > 92% ON 4L OXYMIZER. PT DESAT TO 85% ON CPAP W/ 5L BLEED IN, TITRATED TO 10L BLEED IN FOR SPO2 > 92%. PT THEN SWITCHED BACK TO OXYMIZER AFTER APPROX 1 HR PER PT PREFERENCE. PT W/ OCCASSIONAL NONPRODUCTIVE, MOIST COUGH. PT GETTING UP TO USE THE RESTROOM MULTIPLE TIMES T/O NIGHT, AMBULATING W/ FWW & SBA. PT IN BED RESTING W/ BED ALARM ON FOR PT SAFETY. WILL CONTINUE TO MONITOR AND PROVIDE CARE UNTIL REPORT OFF TO DAY SHIFT RN.
[2019-08-26 11:24] LABS: Albumin, Blood 2.8 g/dL (3.4-5.0); Anion Gap 7 mmol/L (6-16); Blood Urea Nitrogen 60 mg/dL (8-24); Bun/Creatinine Ratio 22.6 (12.0-20.0); CO2, Blood 26 mmol/L (21-32); Chloride, Blood 102 mmol/L (98-108); Creatinine, Blood 2.66 mg/dL (0.40-1.00); Glomerular Filtration Rate 19 (60-); Glucose, Blood 115 mg/dL (70-99); Phosphorus, Blood 5.4 mg/dL (2.5-4.9); Potassium, Blood 6.7 mmol/L (3.5-5.5); Sodium, Blood 135 mmol/L (136-145)
[2019-08-26 11:26] LABS: BASOPHILS ABSOLUTE AUTO 0.01 K/mm3 (0.00-0.23); BASOPHILS PERCENT AUTO 0 % (0-2); EOSINOPHILS ABSOLUTE AUTO 0.13 K/mm3 (0.00-0.68); EOSINOPHILS PERCENT AUTO 2 % (0-6); Hematocrit 28.4 % (33.0-51.0); Hemoglobin 7.8 g/dL (11.5-16.0); IMMATURE GRAN ABSOLUTE AUTO 0.36 K/mm3 (0.00-0.10); IMMATURE GRAN PERCENT AUTO 5 % (0-1); LYMPHOCYTES ABSOLUTE AUTO 1.48 K/mm3 (0.84-5.20); LYMPHOCYTES PERCENT AUTO 20 % (21-46); MONOCYTES ABSOLUTE AUTO 1.14 K/mm3 (0.16-1.47); MONOCYTES PERCENT AUTO 15 % (4-13); Mean Corpuscular HGB Conc 27.5 g/dL (31.5-36.5); Mean Corpuscular Volume 98 fL (80-100); Mean Platelet Volume 12.3 fL (9.1-12.4); NEUTROPHILS ABSOLUTE AUTO 4.27 K/mm3 (1.96-9.15); NEUTROPHILS PERCENT AUTO 58 % (41-73); NRBC ABSOLUTE 0.03 K/mm3 (0.00-0.02); NRBC Auto 0.4 /100 WBC (0.0-0.2); Platelet Count 166 K/mm3 (150-400); RDW Coefficient Variation 19.1 % (11.7-14.2); RDW Standard Deviation 66.8 fL (35.1-46.3); Red Blood Cell Count 2.89 M/mm3 (3.80-5.20); White Blood Cell Count 7.39 K/mm3 (4.00-11.30)
--- NOTE | 2019-08-26 13:07 | NUR ---
TRANSFER OF CARE. PT REPORT CALLED TO TABITHA ALFONSO ON MEDICAL FLOOR. PT TO TRANSFER TO ROOM 331. BELONGINGS GATHERED AND TRANSFERRED WITH PT. PT'S OWN MEDICATION PLACED IN GREEN MEDICATION BAG AND PLACED WITH CHART FOR TRANSFER. PT TRANSFERRED VIA W/C ON 4 L OXYMIZER.
[2019-08-26 14:47] LABS: Albumin, Blood 2.8 g/dL (3.4-5.0); Anion Gap 6 mmol/L (6-16); Blood Urea Nitrogen 61 mg/dL (8-24); CO2, Blood 28 mmol/L (21-32); Calcium, Blood 9.7 mg/dL (8.5-10.1); Chloride, Blood 102 mmol/L (98-108); Creatinine, Blood 2.77 mg/dL (0.40-1.00); Glomerular Filtration Rate 18 (60-); Glucose, Blood 53 mg/dL (70-99); Phosphorus, Blood 5.8 mg/dL (2.5-4.9); Potassium, Blood 6.4 mmol/L (3.5-5.5); Sodium, Blood 136 mmol/L (136-145)
[2019-08-26 15:08] LABS: pH Blood Arterial 7.28 (7.35-7.45)
[2019-08-26 15:09] LABS: PCO2 Arterial 63.5 mmHg (35-45); PO2 Arterial 64.1 mmHg (80-100)
[2019-08-26 15:22] LABS: Source, Urine Catheter
[2019-08-26 15:29] LABS: Bilirubin, Urine Neg (Neg); Blood, Urine 5+ (Neg); Glucose Qualitative, Urine Neg (Neg); Ketones, Urine Neg (Neg); Leukocyte Esterase, Urine Neg (Neg); Nitrite, Urine Neg (Neg); Protein, Urine 1+ (Neg); Specific Gravity, Urine 1.015 (1.003-1.022); Urobilinogen, Urine NORM (Normal)
--- NOTE | 2019-08-26 15:34 | NUR ---
PT ARRIVED TO ROOM 331 VIA W/C FROM PCU AT 1325, PT AWAKE AND ABLE TO TRANSFER INTO BED WITH 1 ASSIST, PT SLOW TO RESPOND BUT ANSWERS QUESTIONS APROPRIATE. LS CLEAR, DIMINISHED IN THE BASES. ON 4L OXYMIZER. 1+ BLE EDEMA. TELE SB AT 45. AT THIS TIME PT LIED DOWN TO TAKE A NAP, AT THIS TIME RT CALLED FOR CONTINUOUS BIOX AND HOME CPAP SET UP. APROX 45 MINUTES LATER THE AUTOMATED MANUFACTURING INSTRUCTOR AND ANOTHER RN WERE AT BEDSIDE ASSESSING PT AND REPORTS THEY WERE HAVING A DIFFICULT TIME WAKING THE PT UP, PT REQUIRING A STERNAL RUB TO OPEN EYES AND MOAN. RT CALLED TO COME ASSESS, RT AT BEDSIDE ASSESSING PT HOME MASK AND CPAP. LAB IN AT THIS TIME FOR LAB DRAW PT CONT TO RESPOND MINIMALLY. POTASSIUM NOTED TO BE 6.4 AND GLU[address]SE OF 53. DR MERCADO NOTIFIED OF PT CHANGE AND CRITICAL LABS, PER DR MERCADO STAT ABG AND [address] LUIS ALSO IN TO SEE PT AND ADDITIONAL ORDERS RECEIVED OF 10 UNITS REGULAR INSILIN IV TO BE GIVEN WITH DEXTROSE. ABG RESULT WITH PH OF 7.28, DR MERCADO NOTIFIED AND ORDERS RECEIVED TO TRANSFER PT BACK TO PCU AND PLACE ON BIPAP. PARISI PLACED PRIOR TO DEPARTURE FOR STRICT I&O'S. 1 UNIT PRBC TO BE TRASFUSED. GLUCOSE AT 139 PRIOR TO TRANSFER AND FAMILY NOW AT BEDSIDE. REPORT CALLED TO PCU. PT WAS SLIGHLTY MORE AWAKE BUT STILL SLOW TO RESPOND.
[2019-08-26 15:40] LABS: Appearance, Urine Hazy (Clear); Color, Urine Yellow (P-Yellow)
[2019-08-26 15:42] LABS: Amorphous Light (0-Heavy); Bacteria Mod /hpf; Red Blood Cells, Urine 25-50 /hpf (0-2); Squamous Epithelial Cells Rare /hpf (Few)
--- NOTE | 2019-08-26 17:09 | NUR ---
TRANSFER TO PCU 1. PT WAS BROUGHT BACK TO PCU ROOM 1 AFTER BEING ON MEDICAL FLOOR FOR ONLY A COUPLE OF HOURS. PER REPORT PT HAD BECOME UNRESPONSIVE AND WASN'T MAINTAINING HER O2 SATS. PT WAS PLACED ON HER HOME CPAP AND CONTINUED TO HAVE HER SATS DROP. CBG WAS DISCOVERED TO BE 56 AFTER THE INSULIN/ D50 TREATMENT. PT STILL HAD AN ELEVATED POTASSIUM LEVEL AND A REPEAT OF INSULIN WITH A FULL AMP OF D50 GIVEN. 1550 PT ARRIVED TO PCU FULLY ALERT AND ANSWERING QUESTIONS. PT WAS ON 4L OXYMIZER WITH O2 SATS OF 92%. PT APPEARRED TO BE BACK TO HER BASELINE THAT SHE WAS PRIOR TO SENDING TO MEDICAL FLOOR. PER DR'S ORDERS RT ATTEMPTED TO PLACE PT ON M-SERIES BIPAP, BUT PT IMMEDIATELY DROPPED HER SATS INTO THE LOW 80'S. MULTIPLE ADJUSTMENTS TO TITRATION AND BIPAP SETTINGS WERE MADE, BUT WE WERE UNABLE TO MAINTAIN AN OXYGEN SAT ABOVE THE LOW 80'S. UPON PLACING PT BACK ON OXYMIZER, PT'S O2 SATS RETURNED TO 93%. RT UPDATED DR ON FINDINGS AND WILL CONTINUE TO MONITOR PT ON OXYMIZER. PT ARRIVED WITH ORDERS TO BEGIN 1 UNIT PRBC'S AND INFUSION WAS STARTED AT 1700. PT IS CURRENTLY RESTING IN BED WITH FAMILY AT THE BEDSIDE. UPDATED FAMILY ON PT'S SATUS AND ANSWERED QUESTIONS.
--- NOTE | 2019-08-26 18:39 | NUR ---
SHIFT SUMMARY PT WAS TRANSFERRED TO MEDICAL FLOOR AND SHORTLY AFTER TRANSFERRED BACK FOR UNRESPONSIVENESS. PT HAS REMAINED ALERT AND ORIENTED FOR THIS RN SINCE ARRIVING BACK TO PCU. PRBC'S CONTINUE TO INFUSE AND WILL COMPLETE ON NOC SHIFT. PT REMAINS ON 4L OXYMIZER AND CONTINUES TO RUN SINUS ELLIS ON TELEMETRY.
[2019-08-26 21:25] LABS: Albumin, Blood 2.8 g/dL (3.4-5.0); Anion Gap 6 mmol/L (6-16); Blood Urea Nitrogen 62 mg/dL (8-24); Bun/Creatinine Ratio 23.6 (12.0-20.0); CO2, Blood 28 mmol/L (21-32); Chloride, Blood 102 mmol/L (98-108); Creatinine, Blood 2.63 mg/dL (0.40-1.00); Glomerular Filtration Rate 19 (60-); Glucose, Blood 74 mg/dL (70-99); Phosphorus, Blood 6.5 mg/dL (2.5-4.9); Potassium, Blood 6.4 mmol/L (3.5-5.5); Sodium, Blood 136 mmol/L (136-145)
[2019-08-27 04:07] LABS: CPK Creatine Kinase 28 U/L (26-193)
--- NOTE | 2019-08-27 04:09 | NUR ---
SHIFT SUMMARY PATIENT SLEPT WELL THROUGH NIGHT. ASSESSMENT REMAINS CHARTED. RIGHT RADIAL SITE REMAINS CLEAN, DRY, INTACT, NO S/S HEMATOMA, BLEEDING. REMAINS ON 5L NC. INCREASED FROM 4L EARLIER IN SHIFT PER R.T. HR REMAINS IN MID 50S. VSS. NO C/O PAIN. WILL CONTINUE TO MONITOR.
[2019-08-27 04:34] LABS: Albumin, Blood 2.8 g/dL (3.4-5.0); Anion Gap 4 mmol/L (6-16); Blood Urea Nitrogen 61 mg/dL (8-24); Bun/Creatinine Ratio 22.3 (12.0-20.0); CO2, Blood 30 mmol/L (21-32); Calcium, Blood 9.7 mg/dL (8.5-10.1); Chloride, Blood 102 mmol/L (98-108); Creatinine, Blood 2.73 mg/dL (0.40-1.00); Glomerular Filtration Rate 19 (60-); Glucose, Blood 92 mg/dL (70-99); Phosphorus, Blood 6.3 mg/dL (2.5-4.9); Potassium, Blood 6.6 mmol/L (3.5-5.5); Sodium, Blood 136 mmol/L (136-145)
[2019-08-27 05:27] LABS: PCO2 Arterial 65.4 mmHg (35-45); pH Blood Arterial 7.28 (7.35-7.45)
[2019-08-27 05:28] LABS: PO2 Arterial 61.1 mmHg (80-100)
[2019-08-27 11:34] LABS: Albumin, Blood 2.5 g/dL (3.4-5.0); Anion Gap 4 mmol/L (6-16); Blood Urea Nitrogen 60 mg/dL (8-24); Bun/Creatinine Ratio 24.6 (12.0-20.0); CO2, Blood 27 mmol/L (21-32); Calcium, Blood 8.7 mg/dL (8.5-10.1); Chloride, Blood 106 mmol/L (98-108); Creatinine, Blood 2.44 mg/dL (0.40-1.00); Glomerular Filtration Rate 21 (60-); Glucose, Blood 119 mg/dL (70-99); Phosphorus, Blood 4.9 mg/dL (2.5-4.9); Sodium, Blood 137 mmol/L (136-145)
[2019-08-27 11:36] LABS: Potassium, Blood 6.1 mmol/L (3.5-5.5)
[2019-08-27 16:43] LABS: Albumin, Blood 2.6 g/dL (3.4-5.0); Anion Gap 4 mmol/L (6-16); Blood Urea Nitrogen 64 mg/dL (8-24); Bun/Creatinine Ratio 23.5 (12.0-20.0); CO2, Blood 29 mmol/L (21-32); Calcium, Blood 9.8 mg/dL (8.5-10.1); Chloride, Blood 102 mmol/L (98-108); Creatinine, Blood 2.72 mg/dL (0.40-1.00); Glomerular Filtration Rate 19 (60-); Glucose, Blood 86 mg/dL (70-99); Phosphorus, Blood 5.5 mg/dL (2.5-4.9); Potassium, Blood 6.4 mmol/L (3.5-5.5); Sodium, Blood 135 mmol/L (136-145)
--- NOTE | 2019-08-27 18:54 | NUR ---
SHIFT SUMMARY PT HAS BEEN ON BIPAP MOST OF THE DAY WITH SHORT PERIODS OFF FOR MEALS OR THERAPY. PT HAS MAINTAINED HER O2 SATS AROUND 92% WITH FIO2 45% AT END OF SHIFT. NEUROLOGICALLY PT HAS HAD INTERMITTANT EPISODES OF INCREASED CONFUSION AND THEN SHE BECOMES MORE LUCID. HER POTASSIUM LEVEL REMAINS ELEVATED AND DR LUIS HAS BEEN MANAGING IT. PT CONTINUES TO HAVE APPROPRIATE OUTPUT IN PARISI CATH FROM IV LASIX. PT HAS REMAINED SINUS ELLIS WITH RATES 40-50'S ON TELEMETRY.
[2019-08-28 04:37] LABS: BASOPHILS ABSOLUTE AUTO 0.01 K/mm3 (0.00-0.23); BASOPHILS PERCENT AUTO 0 % (0-2); EOSINOPHILS ABSOLUTE AUTO 0.12 K/mm3 (0.00-0.68); EOSINOPHILS PERCENT AUTO 2 % (0-6); Hematocrit 26.8 % (33.0-51.0); Hemoglobin 7.7 g/dL (11.5-16.0); IMMATURE GRAN ABSOLUTE AUTO 0.14 K/mm3 (0.00-0.10); IMMATURE GRAN PERCENT AUTO 2 % (0-1); LYMPHOCYTES ABSOLUTE AUTO 1.35 K/mm3 (0.84-5.20); LYMPHOCYTES PERCENT AUTO 23 % (21-46); MONOCYTES ABSOLUTE AUTO 1.32 K/mm3 (0.16-1.47); MONOCYTES PERCENT AUTO 22 % (4-13); Mean Corpuscular HGB 27.7 pg (26.0-34.0); Mean Corpuscular HGB Conc 28.7 g/dL (31.5-36.5); Mean Corpuscular Volume 96 fL (80-100); Mean Platelet Volume 12.4 fL (9.1-12.4); NEUTROPHILS ABSOLUTE AUTO 3.03 K/mm3 (1.96-9.15); NEUTROPHILS PERCENT AUTO 51 % (41-73); Platelet Count 123 K/mm3 (150-400); RDW Coefficient Variation 18.3 % (11.7-14.2); RDW Standard Deviation 63.7 fL (35.1-46.3); Red Blood Cell Count 2.78 M/mm3 (3.80-5.20); White Blood Cell Count 5.97 K/mm3 (4.00-11.30)
[2019-08-28 04:54] LABS: Albumin, Blood 2.4 g/dL (3.4-5.0); Anion Gap 7 mmol/L (6-16); Blood Urea Nitrogen 65 mg/dL (8-24); Bun/Creatinine Ratio 22.7 (12.0-20.0); CO2, Blood 30 mmol/L (21-32); Calcium, Blood 9.8 mg/dL (8.5-10.1); Chloride, Blood 100 mmol/L (98-108); Creatinine, Blood 2.86 mg/dL (0.40-1.00); Glomerular Filtration Rate 18 (60-); Glucose, Blood 89 mg/dL (70-99); Phosphorus, Blood 5.1 mg/dL (2.5-4.9); Potassium, Blood 5.9 mmol/L (3.5-5.5); Sodium, Blood 137 mmol/L (136-145)
--- NOTE | 2019-08-28 06:31 | NUR ---
UPDATE DR FISHER UPDATED ON PATIENT'S HGB OF 7.[address] FISHER STATED THAT HE WOULD ASSESS THE PATIENT AND PUT IN ORDERS IF HE FELT IT WAS NEEDED WHEN HE ARRIVED AT THE HOSPITAL TODAY.
--- NOTE | 2019-08-28 06:35 | NUR ---
SHIFT SUMMARY PATIENT'S APPEARS TO BE CONFUSED AND FORGETFUL BUT HER MENTATION APPEARS TO IMPROVE AT TIMES. AT THE BEGINNING OF THE NIGHT PATIENT WAS NOT ANSWERING MANY QUESTIONS. THIS MORNING, PATIENT WAS ABLE TO STATE HER NAME, DATE OF , LOCATION, AND PRESIDENT. WHEN ASKED WHAT MONTH IT WAS PATIENT STATED IT WAS THE "TWETH MONTH." PATIENT ALSO UNABLE TO STATE WHY SHE WAS HERE WELL THIS MORNING. PATIENT HAS BEEN ON THE BIPAP BUT ONLY APPEARS TO TOLERATE SHORT 15-20 MINUTE BREAKS FROM THE BIPAP. PATIENT WILL OCCATIONLLY YELL/CALL OUT BUT WHEN STAFF ASKS PATIENT WHAT THEY CAN DO TO HELP HER SHE WON'T RESPOND. CONTIUOUS BIOX IN PLACE. PATIENT'S FAMILY MEMBERS CAME TO VISIT LAST NIGHT AND ENCOURAGED HER TO EAT FOOD, PATIENT CONTINUES TO APPEAR TO HAVE A POOR APPITITE. PATIENT APPEARED TO SLEEP WELL THROUGHOUT MOST OF THE NIGHT. WILL SUKHI TO REPORT TO ONCOMING NURSE.
--- NOTE | 2019-08-28 07:26 | NUR ---
AM NOTE. ASSUMED CARE OF PT APROX 0700, PT IS A&Ox4 AT THIS TIME, ABLE TO ANSWER ALL ORIENTATION QUESTIONS CORRECTLY. PT ASKED TO SIT ON THE SIDE OF THE BED, PT WAS HELPED USING 2 PERSON ASSIST TO THE SIDE OF THE BED TO DANGLE. PT WAS ABLE TO SUPPORT HERSELF FOR APROX 10 MINS. PT WAS HELPED BACK TO BED AND BREAKFAST TRAY WAS SET UP, PT ATE 95% OF IT AND 240MLS. PT'S VS STABLE AT THIS TIME, GENERALIZED EDEMA IS NOTED, L/S CLEAR IN THE UPPER AND DIM T/O. PT IS ON 7L OXYMIZER TO EAT WITH O2 SATS AT 92%. BIPAP AT THE BEDSIDE. BT PRESENT AND HYPOACTIVE, ABD IS SOFT AND NONTENDER TO PALP. CALL LIGHT IN REACH, WILL CONTINUE TO MONITOR.
[2019-08-28 07:50] LABS: Hematocrit 28.3 % (33.0-51.0); Hemoglobin 8.2 g/dL (11.5-16.0)
--- NOTE | 2019-08-28 15:23 | NUR ---
PT UPDATE... IT IS NOTED THAT THE PT'S LEFT ARM STARTING AT THE AC IS SWOLLEN, HOT AND PINK/ECCOMOTIC IN SOME AREAS, THE AC HAS BRUSING AND HARD SWOLLEN AREAS, PT C/O OF PAIN TO THE LEFT ARM OF 3/10 WHICH INCREASES TO 8/10 WITH TOUCH OR MOVEMENT. PT'S RIGHT ARM IS NOT SWOLLEN/NO EDEMA AND IS NOT PINK/RED OR HOT/WARM. WILL CONTINUE TO MONITOR, CALL IS MADE TO PROVIDER.
[2019-08-28 16:45] LABS: Albumin, Blood 2.4 g/dL (3.4-5.0); Anion Gap 7 mmol/L (6-16); Blood Urea Nitrogen 67 mg/dL (8-24); Bun/Creatinine Ratio 24.4 (12.0-20.0); CO2, Blood 31 mmol/L (21-32); Chloride, Blood 97 mmol/L (98-108); Creatinine, Blood 2.75 mg/dL (0.40-1.00); Glomerular Filtration Rate 18 (60-); Glucose, Blood 101 mg/dL (70-99); Potassium, Blood 5.5 mmol/L (3.5-5.5); Sodium, Blood 135 mmol/L (136-145)
--- NOTE | 2019-08-28 17:51 | NUR ---
SHIFT SUMMARY. PER THE PT'S FAMILY THE PT HAS GREATLY IMPROVED FROM YESTERDAY. PT'S VS HAVE BEEN STABLE, PT HAS BEEN ON OXYMIZER AT 7-8L WITH O2 SATS >90%. PT HAS BEEN ON THE BIPAP FOR SLEEP MOSTLY TODAY. PT'S LEFT ARM IS WARM, RED AND SWOLLEN (SEE PREVIOUS NOTE) PROVIDER IS AWARE, NO NEW ORDERS OBTAINED. THIS RN NOTED THAT PT HAS BEEN POCKETING FOOD, GOLF BALL SIZED AMOUNTS OF CHEWED FOOD WAS REMOVED FROM THE PT'S RIGHT INNER CHEEK. PT AND FAMILY EDUCATED ON THE RISKS OF ASPIRATION PNA. OBSERVATION AND ORAL CARE DONE AFTER MEALS. PT WORKED WITH PT/OT TODAY, PT WAS UNABLE TO TRANSFER OR WALK BUT WAS ABLE TO STAND WITH 2P MOD ASSIST. AND DAUGHTER AT THE BEDSIDE. CALL LIGHT IN REACH, BED IS LOCKED AND LOW WILL CONTINUE TO MONITOR UNTIL REPROT IS GIVEN TO ONCOMING RN.
--- NOTE | 2019-08-28 20:30 | NUR ---
UPDATE DR VICKRES NOTIFIED THAT PATIENT HAS REDNESS AND SWELLING TO THE LEFT FOREARM/AC AREA THAT IS HOT TO THE TOUCH. ORDERS RECIEVED. DR VICKERS THEN STATED TO HAVE THE DAY SHIFT DR FOLLOW UP WITH IT TOMORROW.
--- NOTE | 2019-08-29 05:49 | NUR ---
SHIFT SUMMARY PATIENT CONTINUES TO BE SLOW TO RESPOND AND OFTEN PATIENT WILL SIMPLY NEVER RESPOND TO STAFF'S QUESTIONS EVEN WHEN SHE IS AWAKE. PATIENT ON BIPAP MOST OF THE NIGHT, HOWEVER PATIENT DOES NOT LIKE HAVING THE MASK ON. PATIENT GIVEN BREAKS FROM BIPAP TOLERATED. AT APPROX 0330 RESPIRATORY THERAPY INCREASED THE FIO2 ON THE BIPAP TO 60% AND O2 WHEN OFF BIPAP WAS INCREASED TO 12-14. PATIENT CURRENTLY SITTING UP IN BED AND WATCHING TV. WILL CONTINUE TO MONITOR PATIENT AND REPORT TO ONCOMING RN.
--- NOTE | 2019-08-29 07:45 | NUR ---
AM NOTE... ASSUMED CARE OF PT APROX 0700. PT IS A&Ox4, BUT IS SLOW TO RESPOND AND FORGETFUL AT TIMES. PT'S O2 NEEDS INCREASED THROUGH THE NIGHT FROM 45% FIO2 ON THE BIPAP TO 60% AND FROM 7-8L OXYMIZER TO 12-14L. PT'S O2 SATS ARE CURRENTLY 90-94% ON THE OXYMIZER AT 12L. PT'S VS STABLE AT THIS TIME. PT DENIES CHEST PAIN/PRESSURE N/V OR INCREASED SOB. PT'S LEFT ARM IS STILL RED, WARM AND PAINFUL TO THE TOUCH. PROVIDERS AWARE. PT IS ASKING TO GET UP OUT OF BED AND INTO THE CHAIR, PT EDUCATED ON SAFE TRANSFERS AND PT/STAFF SAFETY. CALL LIGHT IN REACH, BED IS LOCKED AND LOW WILL CONTINUE TO MONITOR.
[2019-08-29 08:37] LABS: BASOPHILS ABSOLUTE AUTO 0.01 K/mm3 (0.00-0.23); BASOPHILS PERCENT AUTO 0 % (0-2); EOSINOPHILS ABSOLUTE AUTO 0.11 K/mm3 (0.00-0.68); EOSINOPHILS PERCENT AUTO 1 % (0-6); Hematocrit 28.6 % (33.0-51.0); Hemoglobin 8.4 g/dL (11.5-16.0); IMMATURE GRAN PERCENT AUTO 2 % (0-1); LYMPHOCYTES ABSOLUTE AUTO 1.65 K/mm3 (0.84-5.20); LYMPHOCYTES PERCENT AUTO 20 % (21-46); MONOCYTES ABSOLUTE AUTO 1.79 K/mm3 (0.16-1.47); MONOCYTES PERCENT AUTO 22 % (4-13); Mean Corpuscular HGB 27.5 pg (26.0-34.0); Mean Corpuscular HGB Conc 29.4 g/dL (31.5-36.5); Mean Corpuscular Volume 94 fL (80-100); NEUTROPHILS ABSOLUTE AUTO 4.42 K/mm3 (1.96-9.15); NEUTROPHILS PERCENT AUTO 54 % (41-73); NRBC ABSOLUTE 0.02 K/mm3 (0.00-0.02); NRBC Auto 0.2 /100 WBC (0.0-0.2); Platelet Count 136 K/mm3 (150-400); RDW Coefficient Variation 18.5 % (11.7-14.2); RDW Standard Deviation 62.5 fL (35.1-46.3); Red Blood Cell Count 3.05 M/mm3 (3.80-5.20); White Blood Cell Count 8.18 K/mm3 (4.00-11.30)
[2019-08-29 08:52] LABS: Bun/Creatinine Ratio 22.6 (12.0-20.0); Calcium, Blood 9.9 mg/dL (8.5-10.1); Creatinine, Blood 2.87 mg/dL (0.40-1.00); Potassium, Blood 5.2 mmol/L (3.5-5.5)
--- NOTE | 2019-08-29 13:21 | NUR ---
PARISI CATHETER REMOVED AT APPROXIMATELY 1300. WILL MONITOR FOR VOID.
--- NOTE | 2019-08-29 15:34 | NUR ---
AFTERNOON ASSESSMENT NO CHANGES TO REPORT SINCE AM ASSESSMENT. RR REMAINS BETWEEN 28 AND 30. LUNG SOUNDS ARE DIM IN THE BASES OTHER SALAZAR CLEAR. PARISI WAS REMOVED AT APPROXIMATELY 1300, PT IS ATTEMPTING TO VOID ON THE BEDPAN AT THIS TIME. VSS. WILL CONTINUE TO MONITOR.
--- NOTE | 2019-08-29 18:13 | NUR ---
SHIFT SUMMARY PT HAS REMAINED ON THE OXIMIZER THIS SHIFT; OXIMIZER HAS BEEN DECREASED TO 109 LITERS. PT IS MAINTAINING HER SATURATION LEVELS GREATER THAN 90%. PT WAS ABLE TO SIT AT THE EDGE OF THE BED WITH 2 PERSON MODERATE ASSIST, O2 SATURATION IMPROVES WHEN PT IS SITTING AT THE EDGE OF THE BED. SHE HAS TOLERATED A MECHANICAL SOFT DIET. PT NEEDS CONSTANT REMINDERS TO TAKE SMALL BITES AND TO SWALLOW BETWEEN EACH BITE. PT HAS BEEN ALERT, BUT IS FORGETFUL AT TIMES AND IS SLOW TO RESPOND. PARISI CATHETER WAS REMOED AT 1300 TODAY, SHE HAS VOIDED X1 USING THE BEDPAN SINCE. FAMILY WAS AT THE BEDSIDE FOR THE AFTERNOON. RESPIRATORY RATE CONTINUES TO BE INCREASED BUT IS UNLABORED WHEN PT IS AT REST. POWER GLIDE TO NOLVIA IS POSSITIONAL BUT IS WORKING. WILL CONTINUE TO MONITOR UNTIL REPORT TO ONCOMING RN.
[2019-08-30 04:06] LABS: Hematocrit 26.5 % (33.0-51.0); Hemoglobin 7.6 g/dL (11.5-16.0)
[2019-08-30 04:29] LABS: Bun/Creatinine Ratio 22.7 (12.0-20.0); Calcium, Blood 9.2 mg/dL (8.5-10.1); Creatinine, Blood 3.17 mg/dL (0.40-1.00); Potassium, Blood 5.1 mmol/L (3.5-5.5)
--- NOTE | 2019-08-30 05:52 | NUR ---
SHIFT SUMMARY PATIENT PLEASENT AND COOPERATIVE THIS MORNING. PATIENT MUCH MORE ALERT AND ORIENTED TONIGHT THAN THE PREVIOUS NIGHT. PATIENT USED HER HOME CPAP LAST NIGHT WITH A O2 BLEED IN OF 8-10L. PATIENT ON 8L VIA OZYMIZER WHEN OFF BIPAP. PATIENT TURNED Q2H. PATIENT VOIDED SMALL AMOUNTS FREQUENTLY THROUGHOUT THE NIGHT BUT WHEN BLADDER SCANNED PATIENT ONLY HAD 220 ML'S IN HER BLADDER. PATIENT ABLE TO SIT AT THE EDGE OF THE BED THIS MORNING FOR APPROX 20-30 MINUTES. PATIENT HAD SOME APPLE JUICE DUE TO BLOOD SUGAR WITH AM LABS BEING 67. PATIENT ALERT AND TALKING WITH STAFF AT THIS TIME. PATIENT TALKING AND INTERACTING WT STAFF MUCH MORE THAN THE PREVIOUS NIGHT. PATIENT CURRENTLY RESTING IN BED WATCHING TV. WILL CONTINUE TO MONITOR PATIENT AND REPORT TO ONCOMING RN.
--- NOTE | 2019-08-30 06:25 | NUR ---
UPDATE DR NIMESH TAPIA CALLED AND NOTIFIED OF PATIENT'S HGB OF 7.6 THIS AM. ORDERS RECIEVED.
--- NOTE | 2019-08-30 10:07 | NUR ---
ASSUMED CARE APPROXIMATELY 0700; PT ALERT; FREQUENT SMALL AMOUNTS OF URINATION USING BEDPAN; PT FAMILY AT BEDSIDE; SPEECH THERAPY IN TO SEE PT; PT ON 8L OXYMIZER; O2 SATS >93; UNIT OF PRBC BEGUN APPROXIMATELY 1000; CALL LIGHT IN REACH; BED IN LOWEST POSITION;
[2019-08-30 15:21] LABS: Hemoglobin 7.9 g/dL (11.5-16.0)
--- NOTE | 2019-08-30 17:03 | NUR ---
SHIFT SUMMARY PT DANGLE AT SIDE OF BED FOR DELAYED LUNCH TRAY; PT ALERT; SPOUSE FEEDING HER; EDUCATED ON TAKING SMALL BITES AND NOT POCKETING FOOD; SPOUSE STATES HE UNDERSTANDS; PT MOUTH INSPECTED AFTER EATING AND NO POCKETING OF FOOD WAS NOTED; PT ON 5L OXYMIZER; O2 SATS >90; WAS IN TO SEE PT EARLIER IN DAY WAS ; CALL LIGHT IN REACH; BED IN LOWEST POSITION; WILL CONTINUE TO MONITOR UNTIL HAND OFF TO NOC RN
[2019-08-31 04:07] LABS: Hematocrit 30.2 % (33.0-51.0); Hemoglobin 8.8 g/dL (11.5-16.0)
[2019-08-31 04:30] LABS: Bun/Creatinine Ratio 22.8 (12.0-20.0); Calcium, Blood 8.7 mg/dL (8.5-10.1); Creatinine, Blood 3.34 mg/dL (0.40-1.00); Potassium, Blood 5.4 mmol/L (3.5-5.5)
--- NOTE | 2019-08-31 05:41 | NUR ---
EN OF SHIFT SUMMARY PT BEING TURNED AND PLACED ON BED ORTEGA BY STAFF. PT HAS BEEN ALERT AND ORIENTED AND HAS APPROPRIATE CONVERSATIONS WITH STAFF. HAS RECEIVED 1U PRBC THIS SHIFTM HGB NOW ABOVE 8. PT IN SINUS ELLIS HAS BEEN BASELINE FOR HER. LIGHTLY LOW BLOOD PRESSURE BUT MAP REMAins above 65. POWER GLIDE REMAINS BUT IS POSITIONAL. PT HAS BEEN CLEANED AND SKIN CARE PROVIDED WITH EACH REP[OSITIONING. PT HAS TOPLERATED BIPAP WELL THIS SHIFT AND HAS HAD IT ON FOR THE MAJORITY OF IT. PT HAS USED CALL LIGHT APPROPRIATELY THIS SHIFT. WILL CONTINUE TO MONITOR UNTIL SHIFT CHANGE
--- NOTE | 2019-08-31 09:54 | NUR ---
ASSUMED CARE APPROXIMATELY 0700; PT MORE ALERT TODAY; PT ON 5L OXYMIZER; O2 SATS >93; PT TOOK AM MEDS WELL; NO POCKETING NOTED AFTER MEDS AND MEAL TRAY; PT PARTICIPATING MORE IN RESPOSITIONING; VSS; NO ACUTE CHANGES; DR. TAPIA AT BEDSIDE; CALL LIGHT IN REACH; BED IN LOWEST POSITION; WILL CONTINUE TO MONITOR CLOSELY
--- NOTE | 2019-08-31 11:46 | NUR ---
UPDATE PT UP IN CHAIR; PT EDUCATION AT BEDSIDE PER CARDIAC REHAB; SPOUSE PRESENT AT BEDSIDE STATING UNDERSTANDING; PT ALERT AND SEEMS ENCOURAGED BY CHANGE OF POSITION AND STANDING; USED BSC; FORMED BOWEL MOVEMENT;
[2019-08-31] MEDS ORDERED: DISO150 PO (13:55)
[2019-08-31] MEDS ORDERED: CLIN300 PO (13:56)
--- NOTE | 2019-08-31 15:32 | NUR ---
CONFIRMED WITH SPOUSE THAT THEY RECEIVIED HOME MEDCIATION THALIDOMIDE. STATES "ITS IN ONE OF THESE BAGS".
--- NOTE | 2019-08-31 15:34 | NUR ---
UPDATE PT PREPARED FOR TRANSFER TO [facility]; CALLED TO GIVE REPORT AT 1500, NO ANSWER; CALLED AT 1533, NO ANSWER; PT LOADED ON GURNEY; HOLDING BELONGINGS TO RIDE W/ PT PER TRANSPORT SERVICE; ALL BELONGINGS W/ TRANSPORT SERVICE
--- NOTE | 2019-08-31 15:55 | NUR ---
PT WENT VIA TRANSPORT; TRANSPORTING W/ PT; CALLED [facility] FOR REPORT AGAIN @ 1536 AND 1539; REPORT GIVEN TO DUSTIN; MEDICATIONS W/ AND TRANSPORT SERVICE; IV REMOVED WHOLE AND INTACT; PT ALERT; TRANSPORTED ON 5L OXYMIZER; HOME CPAP SENT W/ TRANSPORT SERVICE
== END 2019-08-31 15:39 | DRG 286 ==
LOC: ER 11:48 → MEDS 11:49 → ER 15:15 → MEDS 15:23 → PCU 15:52 → MEDS 22:07 → PCU 08-23 13:28 → MEDS 08-26 13:25 → PCU 08-26 15:41
PROVIDERS: Emergency Medicine; Family Medicine; Internal Medicine; Internal Medicine Cardiovascular Disease; Internal Medicine Endocrinology, Diabetes & Metabolism; ADMIT Family Medicine
PROC: B2111ZZ Fluoroscopy of Multiple Coronary Arteries using Low Osmolar Contrast (ICD-10-PCS; 2019-08-23)
PROC: 4A023N8 Measurement of Cardiac Sampling and Pressure, Bilateral, Percutaneous Approach (ICD-10-PCS; 2019-08-23)
PROC: 5A09357 Assistance with Respiratory Ventilation, Less than 24 Consecutive Hours, Continuous Positive Airway Pressure (ICD-10-PCS; principal; 2019-08-27)
DX: I50.33 Acute on chronic diastolic (congestive) heart failure (principal); J96.21 Acute and chronic respiratory failure with hypoxia; J96.22 Acute and chronic respiratory failure with hypercapnia; Z68.42 Body mass index [BMI] 45.0-49.9, adult; E66.2 Morbid (severe) obesity with alveolar hypoventilation; C90.00 Multiple myeloma not having achieved remission; N18.4 Chronic kidney disease, stage 4 (severe); N17.9 Acute kidney failure, unspecified; L03.114 Cellulitis of left upper limb; E78.5 Hyperlipidemia, unspecified; Z86.711 Personal history of pulmonary embolism; Z86.718 Personal history of other venous thrombosis and embolism; J44.9 Chronic obstructive pulmonary disease, unspecified; D50.9 Iron deficiency anemia, unspecified; Z87.891 Personal history of nicotine dependence; E03.9 Hypothyroidism, unspecified; Z99.81 Dependence on supplemental oxygen; Z79.82 Long term (current) use of aspirin; I27.20 Pulmonary hypertension, unspecified; E87.5 Hyperkalemia; E11.22 Type 2 diabetes mellitus with diabetic chronic kidney disease; R62.7 Adult failure to thrive; Q24.8 Other specified congenital malformations of heart
CPT/HCPCS: 36415; 36430; 36600; 71045; 71046; 76937; 80048; 80053; 80069; 81001; 82550; 82728; 82803; 82947; 83540; 83550; 83735; 83880; 84484; 85007; 85014; 85018; 85025; 85027; 85610; 85730; 86850; 86900; 86901; 86923; 87040; 87086; 92526; 92610; 93005; 93010; 93453; 93460; 94640; 94660; 94762; 97110; 97162; 97166; 97530; 97535; 99152; 99153; 99285-25; C1751; C1769; C1887; C1894; J0696; J0881; J1644; J1815; J1940; J2250; J3010; J7030; J7050; J7070; J7799; P9016; Q9967

== ENCOUNTER 2019-09-22 01:14 | Inpatient (IN) | payer OTHER ==
[~2019-09-22] VITALS: Ht 167.6 cm; Wt 115.4 kg
[~2019-09-22 01:14] MED LIST changes: +CLIN300 PO; +DISO150 PO; +FUROSEMIDE40 MG PO; +LISINOPRIL2.5 MG PO; +METOPROLOL SUCC25 MG PO; +MONTELUKAST SOD10 MG PO; +NEURONTIN300 MG PO; +SYNTHROID100 MCG PO; +Simvastatin20 MG PO
[2019-09-22 01:45] LABS: BASOPHILS ABSOLUTE AUTO 0.02 K/mm3 (0.00-0.23); BASOPHILS PERCENT AUTO 0 % (0-2); EOSINOPHILS ABSOLUTE AUTO 0.02 K/mm3 (0.00-0.68); EOSINOPHILS PERCENT AUTO 0 % (0-6); Hematocrit 28.4 % (33.0-51.0); Hemoglobin 8.2 g/dL (11.5-16.0); IMMATURE GRAN ABSOLUTE AUTO 0.33 K/mm3 (0.00-0.10); IMMATURE GRAN PERCENT AUTO 4 % (0-1); LYMPHOCYTES ABSOLUTE AUTO 1.16 K/mm3 (0.84-5.20); LYMPHOCYTES PERCENT AUTO 15 % (21-46); MONOCYTES ABSOLUTE AUTO 1.84 K/mm3 (0.16-1.47); MONOCYTES PERCENT AUTO 23 % (4-13); Mean Corpuscular HGB 28.4 pg (26.0-34.0); Mean Corpuscular HGB Conc 28.9 g/dL (31.5-36.5); Mean Corpuscular Volume 98 fL (80-100); Mean Platelet Volume 12.6 fL (9.1-12.4); NEUTROPHILS ABSOLUTE AUTO 4.63 K/mm3 (1.96-9.15); NEUTROPHILS PERCENT AUTO 58 % (41-73); NRBC ABSOLUTE 0.05 K/mm3 (0.00-0.02); NRBC Auto 0.6 /100 WBC (0.0-0.2); Platelet Count 117 K/mm3 (150-400); RDW Coefficient Variation 20.6 % (11.7-14.2); Red Blood Cell Count 2.89 M/mm3 (3.80-5.20)
[2019-09-22] MEDS ORDERED: Klor-Con 1010 MEQ PO (01:48)
[2019-09-22] MEDS ORDERED: LEVOFLOXACIN250 MG PO (01:51)
[2019-09-22] MEDS ORDERED: DISO150 PO (01:52)
[2019-09-22 01:53] LABS: PCO2 Arterial 49.6 mmHg (35-45); PO2 Arterial 61.5 mmHg (80-100); pH Blood Arterial 7.36 (7.35-7.45)
[2019-09-22] MEDS ORDERED: [UNRECOGNIZED DRUG - OTHER] PO (01:53)
[2019-09-22] MEDS ORDERED: METO25ER PO (01:54)
[2019-09-22 01:56] LABS: Albumin, Blood 2.8 g/dL (3.4-5.0); Albumin/Globulin Ratio 0.5 (0.8-1.8); Bilirubin, Total 2.8 mg/dL (0.1-1.0); Bun/Creatinine Ratio 13.8 (12.0-20.0); Calcium, Blood 7.5 mg/dL (8.5-10.1); Creatinine, Blood 2.18 mg/dL (0.40-1.00); Globulin, Blood 5.1 g/dL (2.2-4.0); Potassium, Blood 4.7 mmol/L (3.5-5.5); Total Protein, Blood 7.9 g/dL (6.4-8.2); Troponin I 0.136 ng/mL (0.000-0.040)
[2019-09-22 02:56] LABS: International Normalized Ratio 1.88; Prothrombin Time Results 18.8 Sec (9.7-11.5)
--- NOTE | 2019-09-22 05:40 | NUR ---
PT TRANSFERRED VIA GURNEY WITH RN AT BEDSIDE AND HEART MONITOR ATTACHED. PT A&OX3. TACHYPNEIC WITH RR 32. BIOX 94% ON 6L OXYMIZER. PT HAS 20G IV RAC S/L; FLUSHES EASILY AND HAS GOOD BLOOD RETURN. L AC WITH HARDENED SCAB FROM PREVIOUS ADMIT IV; AREA IS RED, RAISED AND VERY FIRM; DIAMETER OF ABOUT A SILVER DOLLAR. PT STATES SHE HAS TO URINATE NOW, BEDPAN PLACED. 0610 PT ONLY URINATED 5CC DARK FERNANDA URINE. UNABLE TO COLLECT SPECIMEN DUE TO AMOUNT. RESP SWAB COLLECTED DOWN L NARE ONLY DUE TO R NARE WITH PACKING IN PLACE FOR NOSE BLEED. 0640 REPORT TO KATHERINE LU.
--- NOTE | 2019-09-22 07:30 | NUR ---
ASSUMED CARE OF PATIENT; SEE ADMISSION HX AND ASSESSMENT FOR DETAILS. PATIENT ASSISTED ON/OFF BEDPAN; VOIDS ABOUT 25ML/AT A TIME. TO RECEIVE ANOTHER DOSE OF LASIX IV; PATIENT WITH INCREASED DYSPNEA WITH ANY EXERTION; CURRENTLY ON OXYMIZER OF 6L/MIN. LUNGS COARSE T/O UPPER CHEST AND DIMINISHED IN BASES. 2+ PEDAL EDEMA. NO NOTED OPEN SKIN BUT LARGE SKIN FOLDS TO ABD./GROIN REGION. IV IN R AC FLUSHES EASILY; CHARGE NURSE, LUCY, TO PLACE POWER GLIDE TO PROVIDE 2ND IV ACCESS WELL BLOOD DRAW PORT. TABITHA LINCOLN AND TABITHA AYALA DISCUSSED CONCERNS RE: L UPPER ARM. HAD A BAD INFILTRATE IN PREVIOUS HOSP. STAY AND WANTS TO MAKE SURE NO DVT DEVELOPED. RN CAN FEEL RADIAL PULSE AND SKIN TEMP. SAME OTHER ARM; WILL MONITOR AND INFORM PCP DURING ROUNDS. PATIENT NPO EXCEPT SIPS OF WATER WITH PO MEDS.; SWALLOWS WELL. AFEBRILE AND VSS.
[2019-09-22 07:49] LABS: Adenovirus Not Detected (NOT DETECT); Coronavirus 229E Not Detected (NOT DETECT); Coronavirus HKU1 Not Detected (NOT DETECT); Coronavirus NL63 Not Detected (NOT DETECT); Coronavirus OC43 Not Detected (NOT DETECT); Human Metapneumovirus Not Detected (NOT DETECT); Human Rhinovirus/Enterovirus Not Detected (NOT DETECT); Influenza A Not Detected (NOT DETECT); Influenza A/2009-H1 Not Detected (NOT DETECT); Influenza A/H1 Not Detected (NOT DETECT); Influenza A/H3 Not Detected (NOT DETECT); Influenza B Not Detected (NOT DETECT); Parainfluenza Virus 1 Not Detected (NOT DETECT); Parainfluenza Virus 2 Not Detected (NOT DETECT); Parainfluenza Virus 3 Not Detected (NOT DETECT); Parainfluenza Virus 4 Not Detected (NOT DETECT)
[2019-09-22 07:50] LABS: Bordetella pertussis Not Detected (NOT DETECT); Chlamydophila pneumoniae Not Detected (NOT DETECT); Mycoplasma pneumoniae Not Detected (NOT DETECT); Respiratory Syncytial Virus Not Detected (NOT DETECT)
[2019-09-22 08:30] LABS: Source, Urine Clean Catch
[2019-09-22 08:36] LABS: Appearance, Urine Clear (Clear); Bilirubin, Urine Neg (Neg); Blood, Urine Neg (Neg); Color, Urine Yellow (P-Yellow); Glucose Qualitative, Urine Neg (Neg); Ketones, Urine Neg (Neg); Leukocyte Esterase, Urine Neg (Neg); Nitrite, Urine Neg (Neg); Protein, Urine 2+ (Neg); Specific Gravity, Urine 1.015 (1.003-1.022); Urobilinogen, Urine 1+ (Normal)
[2019-09-22 08:38] LABS: White Blood Cells, Urine Not Seen /hpf (0-5)
[2019-09-22 08:39] LABS: Bacteria Not Seen /hpf; Granular Casts 0-2 /lpf (0); Red Blood Cells, Urine Not Seen /hpf (0-2); Squamous Epithelial Cells Few /hpf (Few); Transitional Epithelial Cells Few /hpf (0-Rare)
--- NOTE | 2019-09-22 09:30 | NUR ---
PARISI CATH. (COUDE") PLACED AFTER SEVERAL ATTEMPTS; REQUIRED 4 STAFF MEMBERS TO MANAGE PARISI CATHETERIZATION D/T SKIN FOLDS (MEATUS CLEAR BACK BEHIND FOLDS). LARGE QUANTITIES OF URINE DRAINING EVEN BEFORE LASIX GIVEN.
[2019-09-22 09:48] LABS: Hematocrit 25.9 % (33.0-51.0); Hemoglobin 7.6 g/dL (11.5-16.0); Mean Corpuscular HGB 28.4 pg (26.0-34.0); Mean Corpuscular HGB Conc 29.3 g/dL (31.5-36.5); Mean Corpuscular Volume 97 fL (80-100); Mean Platelet Volume 12.4 fL (9.1-12.4); NRBC ABSOLUTE 0.07 K/mm3 (0.00-0.02); NRBC Auto 1.2 /100 WBC (0.0-0.2); Platelet Count 102 K/mm3 (150-400); RDW Coefficient Variation 20.6 % (11.7-14.2); RDW Standard Deviation 71.1 fL (35.1-46.3); Red Blood Cell Count 2.68 M/mm3 (3.80-5.20); White Blood Cell Count 5.79 K/mm3 (4.00-11.30)
[2019-09-22] MEDS ORDERED: Bumetanide2 MG PO (09:48)
[2019-09-22 10:09] LABS: Albumin, Blood 2.6 g/dL (3.4-5.0); Albumin/Globulin Ratio 0.5 (0.8-1.8); Bilirubin, Total 1.9 mg/dL (0.1-1.0); Bun/Creatinine Ratio 14.4 (12.0-20.0); Calcium, Blood 7.4 mg/dL (8.5-10.1); Creatinine, Blood 2.22 mg/dL (0.40-1.00); Globulin, Blood 5.1 g/dL (2.2-4.0); Total Protein, Blood 7.7 g/dL (6.4-8.2)
[2019-09-22 10:11] LABS: Troponin I 0.173 ng/mL (0.000-0.040)
[2019-09-22] MEDS ORDERED: BISA10S PR (10:50)
[2019-09-22] MEDS ORDERED: Fleet Enema132 ML PR (10:54)
[2019-09-22] MEDS ORDERED: [UNRECOGNIZED DRUG - OTHER] PO (10:59)
[2019-09-22] MEDS ORDERED: MILK OF MA400 MG/5 M PO (11:04)
[2019-09-22] MEDS ORDERED: ACET325 (11:05)
[2019-09-22] MEDS ORDERED: ACET325 PO (11:07)
--- NOTE | 2019-09-22 11:30 | NUR ---
DR. SIMIN DE LOS SANTOS; RN ALREADY INFORMED PHYSICIAN RE: CHARGE NURSES CONCERNS FOR POTENTIAL DVT TO L ARM; NO ORDERS PLACED FOR DOPPLER STUDY OR U/S.
--- NOTE | 2019-09-22 15:30 | NUR ---
REPEAT H&H, TROPONIN AND PRECALCITONIN DRAWN (TABITHA TIJERINA FROM [facility]); PROTOCOLS FOLLOWED.
[2019-09-22 15:50] LABS: Hematocrit 25.9 % (33.0-51.0); Hemoglobin 7.5 g/dL (11.5-16.0)
[2019-09-22 16:10] LABS: Troponin I 0.137 ng/mL (0.000-0.040)
--- NOTE | 2019-09-22 16:15 | NUR ---
RN CALLED DR. DUVAL WITH LABS; DECISION MADE TO TRANSFUSE 1 UNIT RBC. SEE ORDERS.
--- NOTE | 2019-09-22 18:30 | NUR ---
SUMMARY: TOLERATING TRANSFUSION WITH ISSUES. SBP 80'S TO 90'S FOR AWHILE BUT IMPROVING. HR 60'S; AFEBRILE. OVER 3LITERS OF URINE FROM PARISI. TOLERATING SOFT ADA DIET WITHOUT GI UPSET BUT MUST CHEW SLOWLY D/T ENDENTULOUS. RN PRESENT T/O MEAL AND ASSISTED; NO S/SX OF ASPIRATION. REPOSITIONED FREQUENTLY OVER THE PAST 2 HOURS; PATIENT HAVING DIFFICULTY MAINTAINING COMFORT. WILL REPORT TO ONCOMING RN.
--- NOTE | 2019-09-22 19:52 | NUR ---
ASSUMED CARE BEDSIDE REPORT RECIEVED. PT IS LAYING IN BED AWAKE, ALERT, AND ORIENTED. PT TALKING IN SHORT 2-3 WORD SENTENCES DUE TO SOB. PT ON 7L OXYMIZER. PT WITH NOSE BLEED TO RIGHT NARE AT THIS TIME. POWERGLIDE TO NOLVIA IS C/D/I WITH PRBC'S INFUSING AT THIS TIME. PT WITH PARISI IN PLACE DRAINING CLEAR YELLOW URINE. NO FAMILY AT BEDSIDE. WILL CONTINUE TO MONITOR.
[2019-09-22 22:59] LABS: Hematocrit 27.1 % (33.0-51.0)
[2019-09-23 03:36] LABS: BASOPHILS ABSOLUTE AUTO 0.01 K/mm3 (0.00-0.23); BASOPHILS PERCENT AUTO 0 % (0-2); EOSINOPHILS ABSOLUTE AUTO 0.08 K/mm3 (0.00-0.68); EOSINOPHILS PERCENT AUTO 1 % (0-6); Hemoglobin 8.6 g/dL (11.5-16.0); Mean Corpuscular HGB 28.5 pg (26.0-34.0); Mean Corpuscular HGB Conc 29.7 g/dL (31.5-36.5); Mean Corpuscular Volume 96 fL (80-100); Mean Platelet Volume 12.3 fL (9.1-12.4); NRBC ABSOLUTE 0.07 K/mm3 (0.00-0.02); Platelet Count 116 K/mm3 (150-400); RDW Coefficient Variation 19.6 % (11.7-14.2); RDW Standard Deviation 66.5 fL (35.1-46.3); Red Blood Cell Count 3.02 M/mm3 (3.80-5.20); White Blood Cell Count 6.87 K/mm3 (4.00-11.30)
[2019-09-23 03:37] LABS: IMMATURE GRAN ABSOLUTE AUTO 0.19 K/mm3 (0.00-0.10); IMMATURE GRAN PERCENT AUTO 3 % (0-1); LYMPHOCYTES ABSOLUTE AUTO 0.79 K/mm3 (0.84-5.20); LYMPHOCYTES PERCENT AUTO 12 % (21-46); MONOCYTES ABSOLUTE AUTO 1.28 K/mm3 (0.16-1.47); MONOCYTES PERCENT AUTO 19 % (4-13); NEUTROPHILS ABSOLUTE AUTO 4.52 K/mm3 (1.96-9.15); NEUTROPHILS PERCENT AUTO 66 % (41-73)
[2019-09-23 03:52] LABS: Albumin, Blood 2.5 g/dL (3.4-5.0); Albumin/Globulin Ratio 0.5 (0.8-1.8); Bun/Creatinine Ratio 17.9 (12.0-20.0); Calcium, Blood 7.6 mg/dL (8.5-10.1); Creatinine, Blood 1.9 mg/dL (0.40-1.00); Globulin, Blood 5.2 g/dL (2.2-4.0); Potassium, Blood 3.9 mmol/L (3.5-5.5); Total Protein, Blood 7.7 g/dL (6.4-8.2)
--- NOTE | 2019-09-23 05:57 | NUR ---
SHIFT SUMMARY PT HAS REMAINED ALERT AND ORIENTED THROUGHOUT THE SHIFT. PT SLEEPING OFF AND ON THROUGHOUT THE SHIFT. PT OXYGEN REQUIREMENTS INCREASED FROM 7L OXYMIXER TO 10L OXYMIZER. PT USED CPAP FOR SHORT PERIOD OF TIME, CURRENTLY BACK ON OXYMIZER WITH SPO2 90%. BLOODY NOSE RESOLVED AT THIS TIME. VITAL SIGNS HAVE REMAINED STABLE. PT HAS REMAINED IN NSR. POWERGLIDE TO NOLVIA C/D/I, SALINE LOCKED. PARISI REMAINS IN PLACE WITH GOOD URINE OUTPUT. PT HAS REPOSITIONED SELF INDEPENDENTLY OR WITH MINIMAL ASSISTANCE. WILL CONTINUE TO MONITOR AND REPORT OFF TO ONCOMING RN.
--- NOTE | 2019-09-23 07:30 | NUR ---
ASSUMED CARE OF PATIENT; SEE ASSESSMENT CHARTING FOR DETAILS. PATIENT AWAKE; DENIES ACUTE DISCOMFORT. ANSWERS QUESTIONS APPROPRIATELY AND FOLLOWS COMMANDS. LUNGS CLEAR; DIMINISHED IN BASES. OXYGEN AT 10L/MIN VIA OXYMIZER; BIOX STAYING LOW 90'S. AFEBRILE AND VSS. MONITOR REMAINS NSR WITH RARE ECTOPIC. PARISI CATHETER DRAINING FAIR AMOUNT OF FERNANDA-COLORED URINE. MORBID OBESITY AND DIFFICULT POSITIONING PATIENT COMFORTABLY.
--- NOTE | 2019-09-23 08:00 | NUR ---
DANGLED AT BEDSIDE FOR BREAKFAST; 2 STAFF MEMBERS ASSISTED PATIENT TO DANGLE POSITION. PATIENT ATE SMALL AMOUNT OF MEAL AND THEN BECAME INCREASINGLY DYSPNEIC; ASSISTED BACK TO LYING POSITION; BIOX STAYING MID 80'S. ENCOURAGED COUGHING AND DEEP BREATHING AND THEN BIOX UP TO 89-90%. WILL MONITOR CLOSELY.
--- NOTE | 2019-09-23 09:30 | NUR ---
AM MEDS GIVEN WHICH INCLUDE LASIX 40MG IV. DR. DUVAL ROUNDING; CHANGED LASIX FROM DAILY TO BID; SEE FURTHER ORDERS.
--- NOTE | 2019-09-23 10:00 | NUR ---
ODIN; BIOX UP TO MID S.
[2019-09-23 13:58] LABS: Bun/Creatinine Ratio 17.5 (12.0-20.0); Calcium, Blood 7.9 mg/dL (8.5-10.1); Creatinine, Blood 1.89 mg/dL (0.40-1.00); Potassium, Blood 3.8 mmol/L (3.5-5.5)
--- NOTE | 2019-09-23 14:00 | NUR ---
SPOUSE VISITING; PATIENT RESTFUL.
--- NOTE | 2019-09-23 16:58 | NUR ---
Initial spiritual care note: Kandy was alone in room and open to visit. She is SOB with conversation. She also appears quite weak. Clearly, she was not up for lengthy conversation. I provided calm presence and assurance of excellent care. She was appreciaitve of encouragement/assurance. I will remain available.
--- NOTE | 2019-09-23 18:00 | NUR ---
SUMMARY: BIOX. READINGS HIGH 80'S TO LOW 90'S; UP TO MID 90'S AFTER AM LASIX BUT SLOWLY DROPPING DOWN. FED SELF PART OF HER DINNER, THIS PM; PUDDING AND FRUIT. MUST EAT VERY SLOWLY D/T SOBOE. LASIX REPEATED AT THIS TIME (ORDERED BID); HOPEFULLY WILL DIURESE MORE. k+ LEVEL 3.8 AT 1400 (BMP CHECK DONE). DR. DUVAL IN 2 TIMES T/O DAY; TO DISCUSS PATIENTS' POC WITH COVERING PHYSICIAN. FAMILY BROUGHT IN PATIENTS' THIAMINIDE (CHEMO CAPSULE) FROM [facility]; LABELED APPROPRIATELY.. RN SENT TO PHARMACY TO EVAL. AND TO LABEL FOR PATIENTS' CARE WHILE IN HOSPITAL; TO START TOMORROW AM.
--- NOTE | 2019-09-23 20:00 | NUR ---
ASSUMED CARE OF PT AT 1915. REPORT RECEIVED AT BEDSIDE. PT PRESENTS IN BED. ALERT AND ORIENTED. PLEASANT AND COOPERATIVE WITH CARE AND ASSESSMENT. PT STATES THAT SHE WANTS TO BE ABLE TO SLEEP THIS NIGHT. DISCUSSED PLAN OF CARE WITH PT. ORAL CARE DONE. PT PLACED ON HER OXIMIZER AND TRENDED DOWN ON HER SATURATIONS. PT TAKES HER HS MEDS WITH WATER. DOES HER OWN ORAL CARE. PLACED BACK TO MASK. RESPIRATORY THERAPIST IN UNIT. DISCUSSED PLAN OF CARE. MANASA RT TO MAKE CHANGES IN MASK FOR PT COMFORT, AND DECREASE LEAK. WILL REVIEW CHART AND PLAN OF CARE FOR THIS PT.
--- NOTE | 2019-09-24 01:55 | NUR ---
PT HAS BEEN ABLE TO MOVE HERSELF IN BED. COMPLIANT CONCERNING WEARING MASK. SATURATIONS HAVE REMAINED AT OR ABOVE 90 PERCENT.
[2019-09-24 04:14] LABS: BASOPHILS ABSOLUTE AUTO 0.01 K/mm3 (0.00-0.23); BASOPHILS PERCENT AUTO 0 % (0-2); EOSINOPHILS ABSOLUTE AUTO 0.06 K/mm3 (0.00-0.68); EOSINOPHILS PERCENT AUTO 1 % (0-6); Hematocrit 27.7 % (33.0-51.0); Hemoglobin 8.1 g/dL (11.5-16.0); IMMATURE GRAN ABSOLUTE AUTO 0.12 K/mm3 (0.00-0.10); IMMATURE GRAN PERCENT AUTO 2 % (0-1); LYMPHOCYTES ABSOLUTE AUTO 0.83 K/mm3 (0.84-5.20); LYMPHOCYTES PERCENT AUTO 15 % (21-46); MONOCYTES ABSOLUTE AUTO 1.17 K/mm3 (0.16-1.47); MONOCYTES PERCENT AUTO 21 % (4-13); Mean Corpuscular HGB 28.3 pg (26.0-34.0); Mean Corpuscular HGB Conc 29.2 g/dL (31.5-36.5); Mean Corpuscular Volume 97 fL (80-100); Mean Platelet Volume 11.8 fL (9.1-12.4); NEUTROPHILS ABSOLUTE AUTO 3.27 K/mm3 (1.96-9.15); NEUTROPHILS PERCENT AUTO 60 % (41-73); NRBC ABSOLUTE 0.05 K/mm3 (0.00-0.02); NRBC Auto 0.9 /100 WBC (0.0-0.2); Platelet Count 112 K/mm3 (150-400); RDW Coefficient Variation 19.7 % (11.7-14.2); RDW Standard Deviation 68.8 fL (35.1-46.3); Red Blood Cell Count 2.86 M/mm3 (3.80-5.20); White Blood Cell Count 5.46 K/mm3 (4.00-11.30)
[2019-09-24 04:28] LABS: Bun/Creatinine Ratio 17.6 (12.0-20.0); Calcium, Blood 8.1 mg/dL (8.5-10.1); Creatinine, Blood 1.93 mg/dL (0.40-1.00); Potassium, Blood 3.6 mmol/L (3.5-5.5)
--- NOTE | 2019-09-24 05:32 | NUR ---
PT HAS BEEN ABLE TO REST THIS NIGHT. DOES HAVE A TENDANCY TO HOLD ONTO HER CPAP MASK AND CREATE LEAKS. PT SATURATIONS RESPOND WELL TO CPAP WHEN SHE HASNT DISLODGED MASK. PT STATES THAT SHE DOES NOT WANT TO WEAR CPAP MASK ANY LONGER. WANTS TO GO ONTO OXIMIZER. PT STATES THAT "THIS IS A DECISION WITH MY LIFE, AND I DON'T WANT TO WEAR THE MASK." OXYGEN PER OXIMIZER SET AT 10 L/M. SHE QUICKLY DESATURATES INTO LOW 80 PERCENTS. PT NOTED TO BE MOUTH BREATHER. MOVED OXIMIZER TO HER MOUTH AND HER SATURATIONS RETURNED TO LOW 90'S. WILL CONTINUE TO MONITOR PT, AND WILL REPORT OFF TO OCOMING RN.
--- NOTE | 2019-09-24 07:59 | NUR ---
ASSUMED CARE RECEIVED REPORT FROM TABITHA MAYORGA. PT IS ALERT AND ORIENTED X 4. SHE IS ON 10L OXYMIZER. SHE HAS A PATENT PARISI DRAINING URINE. SCD'S ARE IN PLACE. BED IS LOW AND LOCKED. CALL LIGHT WITHIN REACH.
--- NOTE | 2019-09-24 13:33 | NUR ---
UPDATE PT WAS NOT TOLERATING OXYMIZER WELL. SHE IS A "MOUTH BREATHER" AND REQUIRED IT IN HER MOUTH TO MAINTAIN SAT'S > 88%. AND EVEN THEN WOULD SOMETIMES DROP, AND IT WAS DRYING HER MOUTH OUT. IT WAS NOT COMFORTABLE FOR HER. I CALLED RT AND HE PUT HER ON THE AIRVO WITH HUMIDITY AT 60L AND SHE IS TOLERATING IT MUCH BETTER. MAINTAING SAT'S IN THE 90'S WITH IT IN HER NOSTRILS.
--- NOTE | 2019-09-24 19:30 | NUR ---
ASSUMED CARE OF PT AT 1930. PT A&O, ON AIRVO 60L, ABLE TO SWALLOW CRACKERS AND PILLS.
--- NOTE | 2019-09-24 19:49 | NUR ---
SHIFT SUMMARY PT HAD NO ACUTE EVENTS LAST NIGHT AND IS IMPROVING. SHE GOT SWITCHED OVER TO AIRVO FROM OXYMIZER AND HAD GREAT RESULTS, FINALLY MAINTAINING SATS' IN THE LOW 90'S. SHE IS DIURESING SLOWLY AND WELL WITH 1050ML OUT THROUGHOUT THE DAY. SHE DIDN'T EAT MUCH AFTER BREAKFAST, BUT I JUST GOT HER CRACKERS. SHE HAS HAD NO COMPLAINTS, NO PAIN. HER DYSPNEA IS AT REST, BUT IT SEEMS MORE MILD ON THE AIRVO. SHE TENDS TO GRUNT. BED IS LOW AND LOCKED. CALL LIGHT WITHIN REACH.
--- NOTE | 2019-09-24 21:44 | NUR ---
PT PLACED ON CPAP PER RT
[2019-09-25 03:58] LABS: BASOPHILS ABSOLUTE AUTO 0.01 K/mm3 (0.00-0.23); BASOPHILS PERCENT AUTO 0 % (0-2); EOSINOPHILS ABSOLUTE AUTO 0.09 K/mm3 (0.00-0.68); EOSINOPHILS PERCENT AUTO 2 % (0-6); Hematocrit 31.3 % (33.0-51.0); Hemoglobin 9.1 g/dL (11.5-16.0); Mean Corpuscular HGB 28.3 pg (26.0-34.0); Mean Corpuscular HGB Conc 29.1 g/dL (31.5-36.5); Mean Corpuscular Volume 98 fL (80-100); Mean Platelet Volume 11.7 fL (9.1-12.4); NRBC ABSOLUTE 0.11 K/mm3 (0.00-0.02); NRBC Auto 2.7 /100 WBC (0.0-0.2); Platelet Count 114 K/mm3 (150-400); RDW Coefficient Variation 19.7 % (11.7-14.2); RDW Standard Deviation 69.8 fL (35.1-46.3); Red Blood Cell Count 3.21 M/mm3 (3.80-5.20); White Blood Cell Count 4.12 K/mm3 (4.00-11.30)
[2019-09-25 04:00] LABS: IMMATURE GRAN ABSOLUTE AUTO 0.15 K/mm3 (0.00-0.10); IMMATURE GRAN PERCENT AUTO 4 % (0-1); LYMPHOCYTES ABSOLUTE AUTO 0.92 K/mm3 (0.84-5.20); LYMPHOCYTES PERCENT AUTO 22 % (21-46); MONOCYTES ABSOLUTE AUTO 0.58 K/mm3 (0.16-1.47); MONOCYTES PERCENT AUTO 14 % (4-13); NEUTROPHILS ABSOLUTE AUTO 2.37 K/mm3 (1.96-9.15); NEUTROPHILS PERCENT AUTO 58 % (41-73)
[2019-09-25 04:15] LABS: Albumin, Blood 2.2 g/dL (3.4-5.0); Albumin/Globulin Ratio 0.4 (0.8-1.8); Bilirubin, Total 1.2 mg/dL (0.1-1.0); Bun/Creatinine Ratio 18.4 (12.0-20.0); Calcium, Blood 8.3 mg/dL (8.5-10.1); Creatinine, Blood 1.85 mg/dL (0.40-1.00); Globulin, Blood 5.5 g/dL (2.2-4.0); Potassium, Blood 4.5 mmol/L (3.5-5.5); Total Protein, Blood 7.7 g/dL (6.4-8.2)
--- NOTE | 2019-09-25 05:34 | NUR ---
PT SWITCHED FROM CPAP TO AIRVO AT 60L
--- NOTE | 2019-09-25 05:36 | NUR ---
PT A&O, FOLLOWS COMMANDS. ABLE TO TOLERATE CPAP AT NIGHT, CPAP MASK IS POSITIONAL, WILL LEAK IF PT HEAD IS TURN TO SIDE, CHIN IS TUCKED OR MOUTH IS OPEN. PT WAS ABLE TO SLEEP MORE THAN THE NIGHT BEFORE. NO ACUTE EVENTS WILL CONTINUE TO MONITOR
--- NOTE | 2019-09-25 08:20 | NUR ---
ASSUMED CARE RECEIVED REPORT FROM JEYSON LU. PT IS IN BED ON AIRVO 60L SAT'ING MID 90'S. SHE IS AWAKE, ALERT AND ORIENTED X4. BED IS LOW AND LOCKED. PARISI PATENT AND DRAINING. SCD'S IN PLACE. CALL LIGHT WITHIN REACH.
--- NOTE | 2019-09-25 18:13 | NUR ---
SHIFT SUMMARY PT REMAINS ON ARIVO, BUT AT 50LPM, WITH FIO2 50%. SHE IS SAT'ING WELL INTO THE 90'S. SHE IS DYSPNEIC ON EXERTION, BUT AT REST SHE STATES SHE IS FEELING MUCH BETTER. SHE HAD A BATH TODAY, AND HER SKIN IS LOOKING OVERALL WNL. HER RIGHT EYE LOOKS GOOD, NO REDNESS. SHE REMAINS IN AFIB, BUT WITH A CONTROLLED RATE. NO PAIN OR DISCOMFORT, ASIDE FEELING HOT OCCASSIONALLY, BUT THE FAN HAS HELPED HER TREMENDOUSLY. SHE HAD 1100ML OF URINE OUT. STABLE BP. EATING MAJORITY OF HER MEALS (BETTER THAN YESTERDAY - SHE DIDN'T EAT MUCH OF LUNCH OR DINNER). PT/OT WAS ORDERED TODAY AND WILL START WITH HER SUNI. BED IS LOW AND LOCKED. CALL LIGHT WITHIN REACH.
--- NOTE | 2019-09-25 19:14 | NUR ---
ASSUMED CARE AT 1910, PT IN SINUS, ON AIRVO AT 60L. DENIES PAIN AT THIS TIME, PARISI IN PLACE. LUNGS COARSE, DIMINISHED, SATS IN LOW 90S. NO FAMILY AT BEDSIDE. PLANS ON WEARING CPAP AT BEDTIME.
--- NOTE | 2019-09-25 20:33 | NUR ---
PT PLACED ON CPAP
[2019-09-26 05:48] LABS: BASOPHILS PERCENT AUTO 0 % (0-2); EOSINOPHILS ABSOLUTE AUTO 0.13 K/mm3 (0.00-0.68); EOSINOPHILS PERCENT AUTO 3 % (0-6); Hematocrit 28.4 % (33.0-51.0); Hemoglobin 8.2 g/dL (11.5-16.0); Mean Corpuscular HGB 27.7 pg (26.0-34.0); Mean Corpuscular HGB Conc 28.9 g/dL (31.5-36.5); Mean Corpuscular Volume 96 fL (80-100); Mean Platelet Volume 11.7 fL (9.1-12.4); NRBC ABSOLUTE 0.06 K/mm3 (0.00-0.02); NRBC Auto 1.4 /100 WBC (0.0-0.2); Platelet Count 140 K/mm3 (150-400); RDW Coefficient Variation 19.7 % (11.7-14.2); RDW Standard Deviation 68.4 fL (35.1-46.3); Red Blood Cell Count 2.96 M/mm3 (3.80-5.20); White Blood Cell Count 4.29 K/mm3 (4.00-11.30)
[2019-09-26 05:49] LABS: IMMATURE GRAN PERCENT AUTO 5 % (0-1); LYMPHOCYTES ABSOLUTE AUTO 0.96 K/mm3 (0.84-5.20); LYMPHOCYTES PERCENT AUTO 22 % (21-46); MONOCYTES ABSOLUTE AUTO 0.53 K/mm3 (0.16-1.47); MONOCYTES PERCENT AUTO 12 % (4-13); NEUTROPHILS ABSOLUTE AUTO 2.47 K/mm3 (1.96-9.15); NEUTROPHILS PERCENT AUTO 58 % (41-73)
[2019-09-26 06:04] LABS: Albumin, Blood 2.3 g/dL (3.4-5.0); Albumin/Globulin Ratio 0.4 (0.8-1.8); Bilirubin, Total 0.7 mg/dL (0.1-1.0); Bun/Creatinine Ratio 21.6 (12.0-20.0); Calcium, Blood 8.9 mg/dL (8.5-10.1); Creatinine, Blood 1.9 mg/dL (0.40-1.00); Globulin, Blood 5.4 g/dL (2.2-4.0); Potassium, Blood 3.4 mmol/L (3.5-5.5); Total Protein, Blood 7.7 g/dL (6.4-8.2)
--- NOTE | 2019-09-26 06:09 | NUR ---
PT A&O, DENIES PAIN, BP WNL, SATS IN 90S ON AIRVO WHILE AWAKE AND CPAP WHILE SLEEPING ABLE TO TOLERATE CPAP OVERNIGHT, PT FEELS RESTED, ABLE TO SLEEP WITHOUT INTERRUPTION. POWERGLIDE NO LONGER DRAWS BLOOD. PT HAD TO BE STUCK BY LAB. PARISI INTACT AND PATENT. NO ACUTE EVNETS WILL CONTINUE TO MONITOR.
--- NOTE | 2019-09-26 08:09 | NUR ---
ASSUMED CARE RECEIEVED REPORT FROM JEYSON LU. PT IS LYING IN BED WITH NO COMPLAINTS. SHE IS ON THE AIRVO 60LPM FIO2 50%. HR IN THE 50'S BUT IN SINUS RHYTHM. STABLE BP. BED IS LOW AND LOCKED. CALL LIGHT WITHIN REACH. PHYSICAL THERAPY IS CURRENTLY EVALUATING AND TREATING PATIENT.
--- NOTE | 2019-09-26 12:55 | NUR ---
UPDATE DR GAN HERE TO SEE PT. WE GOT PT MEDS TO HELP WITH CONSTIPATION - FOR PT HAS NOT HAD A BM SINCE ADMISSION. WE WILL REPLACE POTASSIUM LEVELS (K+=3.4). SHE IS NOW PCU STATUS, SHE IS IMPROVING. HE IS AWARE OF PROLONGED QTc OF 0.54 THIS MORNING, HER BRADYCARDIA AND THAT SHE IS ON LEVAQUIN AND NORPACE (QTc PROLONGING MEDS). HE INFORMED ME THAT WE WILL REEVALUATE IF EYE DROPS NEED TO BE CONTINUED TOMORROW. PT IS UP AND DOWN ON SPO2 SATS. PT REMAINS ON 40%FIO2, 60LPM VIA AIRVO.
--- NOTE | 2019-09-26 16:52 | NUR ---
pt arrived to pcu 12 via bed from icu, report obtained from icu nurse, pt rose/ox3, speaking on the phone. vs stable, heart rate in the 48 bpm, power glide and piv to sharlene, sites are clear and patent, she denies pain, sats are 8 to 92 %. call light in reach.
--- NOTE | 2019-09-26 19:05 | NUR ---
pt doing ok, ate dinner, did not require insuline. no complaints or needs. call light in reach.
[2019-09-27 04:06] LABS: Hematocrit 28.8 % (33.0-51.0); Hemoglobin 8.3 g/dL (11.5-16.0); Mean Corpuscular HGB 27.7 pg (26.0-34.0); Mean Corpuscular HGB Conc 28.8 g/dL (31.5-36.5); Mean Corpuscular Volume 96 fL (80-100); Mean Platelet Volume 11.8 fL (9.1-12.4); NRBC ABSOLUTE 0.05 K/mm3 (0.00-0.02); NRBC Auto 1.1 /100 WBC (0.0-0.2); Platelet Count 141 K/mm3 (150-400); RDW Coefficient Variation 19.5 % (11.7-14.2); RDW Standard Deviation 67.7 fL (35.1-46.3); White Blood Cell Count 4.72 K/mm3 (4.00-11.30)
[2019-09-27 04:43] LABS: Alanine Aminotransfer (ALT/SGP 18 U/L (12-78); Albumin, Blood 2.3 g/dL (3.4-5.0); Albumin/Globulin Ratio 0.5 (0.8-1.8); Alk Phos 87 U/L (50-136); Anion Gap 7 mmol/L (6-16); Aspartate Aminotrans (AST/SGOT 19 U/L (12-37); Bilirubin, Total 0.5 mg/dL (0.1-1.0); Blood Urea Nitrogen 42 mg/dL (8-24); Bun/Creatinine Ratio 22.7 (12.0-20.0); CO2, Blood 35 mmol/L (21-32); Calcium, Blood 8.7 mg/dL (8.5-10.1); Chloride, Blood 98 mmol/L (98-108); Creatinine, Blood 1.85 mg/dL (0.40-1.00); Globulin, Blood 5.1 g/dL (2.2-4.0); Glomerular Filtration Rate 29 (60-); Glucose, Blood 93 mg/dL (70-99); Potassium, Blood 3.3 mmol/L (3.5-5.5); Sodium, Blood 140 mmol/L (136-145); Total Protein, Blood 7.4 g/dL (6.4-8.2)
--- NOTE | 2019-09-27 05:35 | NUR ---
END OF SHIFT SUMMARY NO ACUTE CHANGES THIS SHIFT. VSS. REMAINS ON AIRVO 50L 35 - 45% OR CPAP 7L BLEEDIN. PT DESATS QUICKLY WITHOUT THESE DEVICES IN PLACE BUT DOES RECOUP WITHIN A MINUTE OR SO. REMAINS SIN ELLIS BUT BP IS STABLE. HAVE BEEN ENCOURAGING PT TO HELP STAFF ROLL AND REPOSITION IN BED TO WHICH THE PATIENT HAS BEEN SHOWING IMPROVEMENT. ISAK REMAINS AND IS PATENT FOR DIURESING. LUNGS SOUND LESS MOIST AT THE END OF SHIFT VERSUS BEGINNING. BED BATH GIVEN TO PT. PT WILL BE RECEIVING K REPLACEMENT DUE TO AM LAB. PT HAS SLEPT OFF AND ON T/O THE NIGHT. QTC PROLONGATION REMAINS AND THIS WILL BE DSCUSSED WITH ONCOMING RNDuarte PHILIPPE TO MONITOR UNTIL SHIFT CHANGE. CONTINUE TO MONITOR UNTIL SHIFT CHANGE.
[2019-09-27 05:41] LABS: BAND PERCENT MAN 5 % (0-8); BASOPHILS PERCENT MAN 0 % (0-2); EOSINOPHILS ABSOLUTE MAN 0.14 K/mm3 (0.00-0.68); EOSINOPHILS PERCENT MAN 3 % (0-6); LYMPHOCYTES ABSOLUTE MAN 1.03 K/mm3 (0.84-5.20); LYMPHOCYTES PERCENT MAN 22 % (21-46); METAMYELOCYTE ABSOLUTE MAN 0.18 K/mm3 (0.00-0.00); METAMYELOCYTE PERCENT MAN 4 % (0-0); MONOCYTES ABSOLUTE MAN 0.51 K/mm3 (0.16-1.47); MONOCYTES PERCENT MAN 11 % (4-13); NEUTROPHILS ABSOLUTE MAN 2.83 K/mm3 (1.96-9.15); SEG NEUTROPHILS PERCENT MAN 55 % (41-73); TOTAL CELLS COUNTED 100
--- NOTE | 2019-09-27 07:35 | NUR ---
EKG DONE FOR PRIMARY RN.
--- NOTE | 2019-09-27 12:51 | NUR ---
Spiritual care visit conducted. Patient is lying in bed and alert. Patient openly tells me about family, her medical conditions and her chanell back ground. Patient tells me about her emotionnal struggles that are linked to her health struggles. I listen empathically, provide spiritual guidance and prayer. Patient responds well and shows signs of renewed chanell. I will continue to remain available to patient and family.
--- NOTE | 2019-09-28 06:32 | NUR ---
END OF SHIFT SUMMARY NO ACUTE CHANGES THIS SHIFT. SIN ELLIS 40'S, BP STABLE. REMAINS ON EITHER CPAP 7L BLEEDIN OR AIRVO 40/ 45% FIO2. SPO2 REMAINS >92%, DESATS QUICKLY WITHOUT EITHER OF THEM BUT HAS SHOWN SOME IMPROVEMENT IN THIS. FAMILY UPDAted ON PT STATUS. PT TURNED BY STAFF. PT REMAINS VERY PLEASANT AND COOPERATIVE. PARISI REMAINS PATENT FOR DIURESIS. PT HAS DONE WELL IN HELPING STAFF REPOSITION IN BED. QT BEING MONITORTED BY STAFF. USES CALL LIGHT APPROIPRIATELY. WILL CONTIONUE TO MONITOR UNTIL SHIFT CHANGE.
[2019-09-28 10:22] LABS: Bun/Creatinine Ratio 23.4 (12.0-20.0); Calcium, Blood 8.9 mg/dL (8.5-10.1); Creatinine, Blood 1.75 mg/dL (0.40-1.00); Potassium, Blood 3.4 mmol/L (3.5-5.5)
--- NOTE | 2019-09-28 14:10 | NUR ---
Kandy was assisted OOB to the chair this morning, and she tolerated it well. States that she feels so much better getting out of the bed. SPO2 remained above 93% during the transfer from the bed using the walker to the chair. She has remained up in the recliner since then, states she is feeling well. Denies any pain. AIR Vo O2 administration has been weaned down slightly since this morning. Encouraged the pt to deep breathe and cough, and she said that she has been doing this. Steve was also dc'd as the pt is able to tolerate getting up to a bedside commode.
[2019-09-28 16:17] LABS: Vancomycin, Trough 21.6 ug/mL (5.0-10.0)
--- NOTE | 2019-09-28 18:19 | NUR ---
SUMMARY Kandy was up in the chair today for about a total of 8 hours, and also has started using the bedside commode to void, and also had 2 bowel movements. Toleration of activity was good, with spo2 while on the airVo staying above 94% at all times. Cough is dry, non productive. Complained of a headache this evening which was unrelieved by Tylenol. She ate dinner with a good appetite while sitting up in the chair.
[2019-09-29 04:35] LABS: Hematocrit 31.3 % (33.0-51.0); Hemoglobin 9.2 g/dL (11.5-16.0); Mean Corpuscular HGB 28.1 pg (26.0-34.0); Mean Corpuscular HGB Conc 29.4 g/dL (31.5-36.5); Mean Corpuscular Volume 96 fL (80-100); Mean Platelet Volume 11.5 fL (9.1-12.4); Platelet Count 149 K/mm3 (150-400); RDW Coefficient Variation 19.7 % (11.7-14.2); RDW Standard Deviation 68.5 fL (35.1-46.3); Red Blood Cell Count 3.27 M/mm3 (3.80-5.20); White Blood Cell Count 5.01 K/mm3 (4.00-11.30)
[2019-09-29 04:50] LABS: Calcium, Blood 9.3 mg/dL (8.5-10.1); Creatinine, Blood 1.74 mg/dL (0.40-1.00); Potassium, Blood 3.8 mmol/L (3.5-5.5)
[2019-09-29 05:28] LABS: BAND PERCENT MAN 2 % (0-8); BASOPHILS PERCENT MAN 0 % (0-2); EOSINOPHILS ABSOLUTE MAN 0.15 K/mm3 (0.00-0.68); EOSINOPHILS PERCENT MAN 3 % (0-6); LYMPHOCYTES ABSOLUTE MAN 1.85 K/mm3 (0.84-5.20); LYMPHOCYTES PERCENT MAN 37 % (21-46); METAMYELOCYTE PERCENT MAN 2 % (0-0); MONOCYTES ABSOLUTE MAN 0.85 K/mm3 (0.16-1.47); MONOCYTES PERCENT MAN 17 % (4-13); MYELOCYTE PERCENT MAN 4 % (0-0); NEUTROPHILS ABSOLUTE MAN 1.85 K/mm3 (1.96-9.15); SEG NEUTROPHILS PERCENT MAN 35 % (41-73); TOTAL CELLS COUNTED 100
--- NOTE | 2019-09-29 05:52 | NUR ---
SHIFT SUMMARY PT HAS REMAINED AOX4 THROUGHOUT SHIFT. VSS. PLEASANT AND COOPERATIVE WITH CARE. PT CONTINUES TO AMBULATE WITH STANDBY ASSIST WITH FWW TO BSC AND CHAIR, STRENGTH IMPROVING SIGNIFICANTLY. O2 SATS HAVE REMAINED >90% ON AIRVO WITH SETTINGS OF 40L AND 35% FIO2 OR ON CPAP WITH 5L BLEED IN. PT HAS ROTATED BETWEEN THESE TWO OXYGEN DELIVERY DEVICES THROUGHOUT THE SHIFT, UTILIZING THE AIRVO WHILE AWAKE AND THE CPAP WHILE SLEEPING. PT MEDICATED ONCE FOR HEADACHE PAIN THAT HAS NOT YET BEEN RELIEVED WITH TYLENOL. PT REPORTS THAT HEADACHE CAUSING SOME NAUSEA, THAT HAS DECREASED WITH ORDERED MEDICATIONS. NO OTHER CHANGES NOTED FROM INITIAL ASSESSMENT. WILL CONTINUE TO MONITOR AND REPORT TO ONCOMING SHIFT RN. BED IN LOW POSITION, CALL LIGHT IN REACH.
--- NOTE | 2019-09-29 08:25 | NUR ---
AM NOTE.. ASSUMED CARE OF PT APROX 0700. PT IS A&Ox4 BUT IS SLOW TO RESPOND AT TIMES. PT WAS ADMITTED FOR CHF EAXC. PT'S VS STABLE. PT IS ON THE AIRVO AT 40L AND 35%FI02. PT IS UP IN THE CHAIR FOR BREAKFAST. NO EDEMA IS NOTED ON ASSESSMENT. L/S CLEAR IN THE UPPER LOBES CRACKLES NOTED IN THE BASES. BT PRESENT AND NORMOACITVE. ABD IS SOFT AND NONTENDER TO PALP. WILL CONTINUE TO MONITOR.
--- NOTE | 2019-09-29 17:54 | NUR ---
SHIFT SUMMARY. NO ACUTE NEGATIVE CHANGES NOTED THIS SHIFT. PT'S VS HAVE BEEN STABLE. PT WAS TRANSFERED FROM THE AIRVO TO HI FLOW NC APROX 1200 TODAY. PT HAS TOLERATED THIS WELL ON 6-7L NC. SINCE THEN PT HAS BEEN TITRATED DOWN TO 5L NC WITH O2 SATS >91%. PT DENIES CHEST PAIN/PRESSURE N/V OR INCREASED SOB AT THIS TIME. PT WAS ABLE TO GET UP AND WALK INTO THE BATHROOM FOR SHOWER WITH NO ISSUE. PT HAS BEEN UP IN THE RECLINER CHAIR FOR MEALS. CALL LIGHT IN REACH, WILL CONTINUE TO MONITOR UNTIL REPORT IS GIVEN TO ONCOMING RN.
--- NOTE | 2019-09-30 02:27 | NUR ---
PTS BIOX WAS ALARMING.I ENTERED ROOM TO CK AND DISCOVERED PT HAD REMOVED HER CPAP WITH SATS AT 72% I IMMEDIATLEY PLACED N/C TO BRING SATS UP THEN REPLACED CPAP WITH 7 L BLEED MIKE AFTER SATS WERE BACK UP TO 94% WHEN I ASKED PT WHY SHE TOOK CPAP OFF, PT STATED SHE DID NOT KNOW. DISCUSSED RISKS OF REMOVING CPAP AND NOT HAVING 02 TO REPLACE IT. RISK OF LOW SATS.PT VERB UNDERSTANDING OF RISKS.A/O X3 AT PRESENT.CURRENTLY SATS 93% ON CPAP.TAPED CONNECTIONS WHICH PT DISCONNECTED .
[2019-09-30 06:26] LABS: Hematocrit 30.6 % (33.0-51.0); Hemoglobin 8.7 g/dL (11.5-16.0); Mean Corpuscular HGB 27.7 pg (26.0-34.0); Mean Corpuscular HGB Conc 28.4 g/dL (31.5-36.5); Mean Corpuscular Volume 98 fL (80-100); Mean Platelet Volume 11.9 fL (9.1-12.4); Platelet Count 145 K/mm3 (150-400); RDW Coefficient Variation 19.6 % (11.7-14.2); RDW Standard Deviation 68.8 fL (35.1-46.3); Red Blood Cell Count 3.14 M/mm3 (3.80-5.20)
[2019-09-30 06:42] LABS: Bun/Creatinine Ratio 22.2 (12.0-20.0); Creatinine, Blood 1.85 mg/dL (0.40-1.00); Potassium, Blood 4.4 mmol/L (3.5-5.5)
--- NOTE | 2019-09-30 06:51 | NUR ---
SUMMARY PT REQUIRING CONNECTIONS TAPED, TO KEEP CPAP ON PT.PT SEPERATES VELCRO AND REMOVES TUBE FROM CPAP IF NOT TAPED DESATS QUICKLY INTO 70'S.SLEPT OF AND ON TONIGT. NO C/OSOB. OOB WITH ASSIST FOR BSC.
[2019-09-30 07:00] LABS: BAND PERCENT MAN 7 % (0-8); BASOPHILS ABSOLUTE MAN 0.05 K/mm3 (0.00-0.23); BASOPHILS PERCENT MAN 1 % (0-2); EOSINOPHILS ABSOLUTE MAN 0.22 K/mm3 (0.00-0.68); EOSINOPHILS PERCENT MAN 4 % (0-6); LYMPHOCYTES ABSOLUTE MAN 0.88 K/mm3 (0.84-5.20); LYMPHOCYTES PERCENT MAN 16 % (21-46); METAMYELOCYTE ABSOLUTE MAN 0.27 K/mm3 (0.00-0.00); METAMYELOCYTE PERCENT MAN 5 % (0-0); MONOCYTES ABSOLUTE MAN 1.43 K/mm3 (0.16-1.47); MONOCYTES PERCENT MAN 26 % (4-13); NEUTROPHILS ABSOLUTE MAN 2.64 K/mm3 (1.96-9.15); SEG NEUTROPHILS PERCENT MAN 41 % (41-73); TOTAL CELLS COUNTED 100
--- NOTE | 2019-09-30 08:20 | NUR ---
AM NOTE... ASSUMED CARE OF PT APROX 0700. PT IS A&Ox4 WITH TIMES OF CONFUSION THAT SEEM TO BE RELATED TO HER O2 SATS DROPPING WHEN SHE TAKES HER NC OR CPAP OFF. PT WAS ADMITTED FOR CHF EXAC. CURRENTLY PT IS ON HER BASELINE O2 AT 4-5L NC WITH O2 SATS >92%. PT'S VS STABLE AT THIS TIME. TRACE EDEMA IS NOTED TO HER BLE AND BUE. L/S CLEAR IN THE UPPER AND COARSE IN THE LOWER LOBES. BT NOTED AND NORMOACTIVE, ABD IS SOFT AND NONTENDER TO PALP. PROVIDER AT THE BEDSIDE THIS AM, HE IS AWARE OF PT'S HR IN THE 40'S. PT IS NONSYMPTOMATIC. POSSIBLE D/C THIS AFTERNOON. CALL LIGHT IN REACH, WILL CONTINUE TO MONITOR.
[2019-09-30 13:39] LABS: Vancomycin, Trough 21.1 ug/mL (5.0-10.0)
--- NOTE | 2019-09-30 17:03 | NUR ---
SHIFT SUMMARY. NO ACUTE NEGATIVE CHANGES NOTED THIS SHIFT. PT VS HAVE BEEN STABLE. PT DENIES ANY CHEST PAIN/PRESSURE N/V OR INCREASED SOB. PT HAS BEEN ON 4-5L NC WITH O2 SATS >92%. PT HAS BEEN UP IN THE CHAIR FOR MEALS AND BACK TO BED THIS AFTERNOON FOR A NAP. PT'S HAS BEEN AT HER BEDSIDE MOST OF THE SHIFT. PT IS TO D/C TO SNF. CALL LIGHT IN REACH, WILL CONTINUE TO MONITOR UNTIL REPORT IS GIVEN TO ONCOMING RN.
[2019-10-01 04:43] LABS: BASOPHILS ABSOLUTE AUTO 0.01 K/mm3 (0.00-0.23); BASOPHILS PERCENT AUTO 0 % (0-2); EOSINOPHILS ABSOLUTE AUTO 0.15 K/mm3 (0.00-0.68); EOSINOPHILS PERCENT AUTO 3 % (0-6); Hematocrit 28.7 % (33.0-51.0); Hemoglobin 8.3 g/dL (11.5-16.0); IMMATURE GRAN ABSOLUTE AUTO 0.69 K/mm3 (0.00-0.10); IMMATURE GRAN PERCENT AUTO 11 % (0-1); LYMPHOCYTES ABSOLUTE AUTO 1.16 K/mm3 (0.84-5.20); LYMPHOCYTES PERCENT AUTO 19 % (21-46); MONOCYTES ABSOLUTE AUTO 1.36 K/mm3 (0.16-1.47); MONOCYTES PERCENT AUTO 23 % (4-13); Mean Corpuscular HGB Conc 28.9 g/dL (31.5-36.5); Mean Corpuscular Volume 97 fL (80-100); Mean Platelet Volume 11.8 fL (9.1-12.4); NEUTROPHILS ABSOLUTE AUTO 2.67 K/mm3 (1.96-9.15); NEUTROPHILS PERCENT AUTO 44 % (41-73); Platelet Count 117 K/mm3 (150-400); RDW Coefficient Variation 19.2 % (11.7-14.2); RDW Standard Deviation 68.4 fL (35.1-46.3); Red Blood Cell Count 2.96 M/mm3 (3.80-5.20); White Blood Cell Count 6.04 K/mm3 (4.00-11.30)
[2019-10-01 05:03] LABS: Bun/Creatinine Ratio 23.7 (12.0-20.0); Creatinine, Blood 1.73 mg/dL (0.40-1.00); Potassium, Blood 4.4 mmol/L (3.5-5.5)
--- NOTE | 2019-10-01 06:41 | NUR ---
SHIFT SUMMARY PT A&O X4. VSS. MONITOR SHOWS SB, HR 40's. SPO2 > 92% ON 3-4L NC. PT ATTEMPT TO WEAR CPAP W/ SELF REMOVAL AFTER SHORT PERIOD OF USE W/ DESAT TO 85%. PT RECOVERY W/ REAPPLICATION OF NC. PT SBA W/ FWW TO BATHROOM. PT REQUIRING ENCOURAGEMENT FOR ACTIVITY. WILL CONTINUE TO MONITOR AND PROVIDE CARE UNTIL REPORT OFF TO DAY SHIFT RN.
--- NOTE | 2019-10-01 08:54 | NUR ---
AM NOTE... ASSUMED CARE OF PT APROX 0700. PT IS A&Ox4 AND SBA W/FWW. PT'S VS STABLE, HR IN THE 40'S-50'S PER FERRYBOAT OPERATOR HELPER. PT IS ON BASELINE O2 AT 4L NC. PT HAS BEEN UP TO THE CHAIR FOR BREAKFAST AND WALKING TO THE BATHROOM. PT'S AT THE BEDSIDE. CALL LIGHT IN REACH, WILL CONTINUE TO MONITOR.
[2019-10-01] MEDS ORDERED: FURO40 PO (13:53)
== END 2019-10-01 14:48 | DRG 291 ==
LOC: ER 01:14 → ICUW 05:30 → PCU 09-26 16:25
PROVIDERS: Emergency Medicine; Family Medicine; Internal Medicine Endocrinology, Diabetes & Metabolism; Pharmacist; Student in an Organized Health Care Education/Training Program; ADMIT Internal Medicine
DX: I13.0 Hypertensive heart and chronic kidney disease with heart failure and stage 1 through stage 4 chronic kidney disease, or unspecified chronic kidney disease (principal); I50.33 Acute on chronic diastolic (congestive) heart failure; J18.9 Pneumonia, unspecified organism; Z68.41 Body mass index [BMI] 40.0-44.9, adult; E66.2 Morbid (severe) obesity with alveolar hypoventilation; C90.00 Multiple myeloma not having achieved remission; N17.9 Acute kidney failure, unspecified; J44.9 Chronic obstructive pulmonary disease, unspecified; Z87.891 Personal history of nicotine dependence; Z86.718 Personal history of other venous thrombosis and embolism; Z99.81 Dependence on supplemental oxygen; Z79.82 Long term (current) use of aspirin; I27.20 Pulmonary hypertension, unspecified; R04.0 Epistaxis; N18.3 Chronic kidney disease, stage 3 (moderate); E03.9 Hypothyroidism, unspecified; E11.22 Type 2 diabetes mellitus with diabetic chronic kidney disease; I48.91 Unspecified atrial fibrillation; E87.6 Hypokalemia; R00.1 Bradycardia, unspecified; T44.7X5A Adverse effect of beta-adrenoreceptor antagonists, initial encounter; Y92.239 Unspecified place in hospital as the place of occurrence of the external cause
CPT/HCPCS: 0099U; 36415; 36430; 36600; 51703; 71045; 80048; 80053; 80202; 81001; 82272; 82550; 82803; 82947; 83605; 83880; 84145; 84484; 85014; 85018; 85025; 85027; 85610; 85730; 86850; 86900; 86901; 86923; 87040; 87070; 87205; 93005; 93010; 94640; 94660; 94762; 96365; 96366; 96375; 97110; 97162; 97530; 99285-25; A9270; C1751; C9113; J0456; J0696; J1940; J1956; J2405; J3370; J3480; J7050; P9016

== ENCOUNTER 2019-10-12 00:23 | Inpatient (IN) | payer OTHER ==
[~2019-10-12] VITALS: Ht 152.4 cm; Wt 110.2 kg
[~2019-10-12 00:23] MED LIST changes: +ACET325; +ACET325 PO; +BISA10S PR; +Bumetanide2 MG PO; +Fleet Enema132 ML PR; +Klor-Con 1010 MEQ PO; +LEVOFLOXACIN250 MG PO; +MILK OF MA400 MG/5 M PO; +[UNRECOGNIZED DRUG - OTHER] PO; +[UNRECOGNIZED DRUG - OTHER] PO
[2019-10-12 00:41] LABS: PO2 Arterial 70.7 mmHg (80-100); pH Blood Arterial 7.37 (7.35-7.45)
[2019-10-12 01:01] LABS: BASOPHILS ABSOLUTE AUTO 0.01 K/mm3 (0.00-0.23); BASOPHILS PERCENT AUTO 0 % (0-2); EOSINOPHILS ABSOLUTE AUTO 0.11 K/mm3 (0.00-0.68); EOSINOPHILS PERCENT AUTO 2 % (0-6); Hemoglobin 7.7 g/dL (11.5-16.0); IMMATURE GRAN ABSOLUTE AUTO 0.16 K/mm3 (0.00-0.10); IMMATURE GRAN PERCENT AUTO 3 % (0-1); LYMPHOCYTES ABSOLUTE AUTO 1.62 K/mm3 (0.84-5.20); LYMPHOCYTES PERCENT AUTO 25 % (21-46); MONOCYTES ABSOLUTE AUTO 1.42 K/mm3 (0.16-1.47); MONOCYTES PERCENT AUTO 22 % (4-13); Mean Corpuscular HGB 28.8 pg (26.0-34.0); Mean Corpuscular HGB Conc 28.5 g/dL (31.5-36.5); Mean Corpuscular Volume 101 fL (80-100); NEUTROPHILS ABSOLUTE AUTO 3.16 K/mm3 (1.96-9.15); NEUTROPHILS PERCENT AUTO 49 % (41-73); Platelet Count 131 K/mm3 (150-400); RDW Coefficient Variation 21.9 % (11.7-14.2); RDW Standard Deviation 76.3 fL (35.1-46.3); Red Blood Cell Count 2.67 M/mm3 (3.80-5.20); White Blood Cell Count 6.48 K/mm3 (4.00-11.30)
[2019-10-12 01:21] LABS: Alanine Aminotransfer (ALT/SGP 18 U/L (12-78); Albumin/Globulin Ratio 0.6 (0.8-1.8); Alk Phos 108 U/L (50-136); Anion Gap 5 mmol/L (6-16); Aspartate Aminotrans (AST/SGOT 14 U/L (12-37); Bilirubin, Total 0.8 mg/dL (0.1-1.0); Blood Urea Nitrogen 30 mg/dL (8-24); Bun/Creatinine Ratio 16.7 (12.0-20.0); CO2, Blood 32 mmol/L (21-32); Calcium, Blood 8.4 mg/dL (8.5-10.1); Chloride, Blood 102 mmol/L (98-108); Globulin, Blood 5.1 g/dL (2.2-4.0); Glomerular Filtration Rate 30 (60-); Glucose, Blood 170 mg/dL (70-99); Sodium, Blood 139 mmol/L (136-145); Total Protein, Blood 8.1 g/dL (6.4-8.2); Troponin I <0.015 ng/mL (0.000-0.040)
[2019-10-12 03:00] LABS: Source, Urine Catheter
[2019-10-12 03:03] LABS: Bilirubin, Urine Neg (Neg); Blood, Urine Neg (Neg); Glucose Qualitative, Urine Neg (Neg); Ketones, Urine Neg (Neg); Leukocyte Esterase, Urine Neg (Neg); Nitrite, Urine Neg (Neg); Protein, Urine 2+ (Neg); Specific Gravity, Urine 1.015 (1.003-1.022); Urobilinogen, Urine NORM (Normal)
[2019-10-12 03:05] LABS: Appearance, Urine Clear (Clear); Color, Urine Yellow (P-Yellow)
[2019-10-12 03:09] LABS: Bacteria Few /hpf; Red Blood Cells, Urine 0-2 /hpf (0-2); Squamous Epithelial Cells Few /hpf (Few); White Blood Cells, Urine 0-2 /hpf (0-5)
--- NOTE | 2019-10-12 05:22 | NUR ---
PT TO ICU @ 0405 WITH ED RN VIA VERA. PT ARRIVED ON BIPAP, BUT SWITCHED TO 7L O2 PER NC SHORTLY AFTER ARRIVAL. PT MAINTAINED O2 SATURATIONS>92% ON 7L PER NC, LS COARSE, DIM IN THE BASES. MONITOR SHOWS SINUS RHYTHM, HR 70'S, BP STABLE, PT DENIES ANY PAIN OR SOB. EDEMA NOTED TO LOWER EXTREMETIES. PARISI IN PLACE AND DRAINING CLEAR YELLOW URINE.
--- NOTE | 2019-10-12 06:21 | NUR ---
PT REMAINS STABLE ON 7L O2 PER NC. PT GIVEN SMALL SIPS OF WATER, TOLERATING PO INTAKE.
--- NOTE | 2019-10-12 09:26 | NUR ---
DR. JUAN AT BEDSIDE. ORDERED STATUS CHANGE TO MEDICAL NO TELE, CARDIAC DIET, OT AND PT EVAL, AND 1 UNIT PRBC TRANSFUSION FOR HGB 7.7.
--- NOTE | 2019-10-12 13:27 | NUR ---
PT WORKING WITH PATIENT.
--- NOTE | 2019-10-12 15:21 | NUR ---
PT UNABLE TO MAINTAIN HER OXYGEN SATURATION > 89% ON 8 L/MIN HI FLOW NC, RR 40 PLACED BACK ON BIPAP 09/03, 60% FIO2. O2 SAT 98-100%, RR 31-34.
--- NOTE | 2019-10-12 15:52 | NUR ---
SPOKE WITH DR. JUAN REGARDING PT REQUIRING THE USE OF BIPAP. STATUS CHANGED BACK TO PCU.
--- NOTE | 2019-10-12 16:37 | NUR ---
PT WITH FEBRILE TRANSFUSION REACTION, TEMP INCREASED FROM 98.4 TO 101.0. CALLED TO REPORT THIS TO DR. JUAN, LEFT VOICEMAIL TO HIM TO RETURN MY CALL. BOARD MILL SUPERVISOR Antonella FERNANDEZ NOTIFIED. TRANSFUSION STOPPED AT 1618. BP 142/41, HR 57. SPOKE TO DR. JUAN BY PHONE AT 1642, REPORTED SXS AND VS.
--- NOTE | 2019-10-12 17:44 | NUR ---
SPOKE TO DR. ALFRED BY PHONE. GAVE UPDATE ON PT CONDITION, BIPAP SETTINGS. RECEIVED VERBAL ORDER TO CHANGE BIPAP SETTINGS TO 14/7 WITH 50% FIO2, O2 SAT GOAL IS 92-95%. SETTINGS CHANGED BY VJ CHAVEZ. O2 SAT IS NOW 94%, TV 410, RR 22. PT STATED SHE IS MORE COMFORTABLE.
--- NOTE | 2019-10-12 18:51 | NUR ---
PATIENT ARRIVED FROM ED AT 1825 VIA GURNEY. TRANSFERRED TO BED. R FACIAL DROOP, R EYELID PTOSIS, PUPILS ARE EQUAL AND REACTIVE WITH R EYE DIFFICULTY FOCUSING. RUE AND RLE FLACCID. PLACED ON 2 L/MIN NC O2, HOB ELEVATED TO 45 DEGREES, SUCTION SET UP. HRR, BP 169/94, HR 91, 93% ON 2 L/MIN NC. HIGH ASPIRATION RISK. NO FAMILY OR CG ACCOMPANIED PT FROM ED. SKIN WARM, DRY, AND INTACT; WEARING ATTENDS.
--- NOTE | 2019-10-12 19:15 | NUR ---
ASSUME CARE PT TRANSFER TO ICU 15 FROM ICU 1. AT BEDSIDE. MONITORINTACTHSHWOING SINUS ELLIS SINUS RHYTHM. HEART RATE 50'S-60'S. LUNGS SOUNDS CLEAR UPPER LOBES WITH COARSSE DECREASED BASES ON BIPAP 14/7 50% FIO2. ABDOMEN SOFT WITH BOWEL SOUNDS FOUR QUADS. PARISI PATENT DRAINING FERNANDA URINE EDEMA NOTED TO BILATERAL LOWER EXTREMITIES. CONTINUE TO MONITOR AND REPORT CHANGE IN PATIENT CONDITION
--- NOTE | 2019-10-12 19:45 | NUR ---
SHIFT SUMMARY: PT TOLERATING BIPAP BETTER NOW WITH CHANGED SETTINGS. A&O X 3, SANTOS. SPOUSE AT BEDSIDE. LUNG SOUNDS WITH COARSE CRACKLES AND RHONCHI, FOXER COUGH. DR. ALFRED SAW PATIENT AT ~1830. URINE OUTPUT HAS CHANGED FROM CLEAR YELLOW TO CLEAR FERNANDA. DENIES PAIN. PLAN IS TO MOVE PT FROM ICU 1 TO ICU 15. WILL KEEP ON BIPAP, [employer] O2 SAT 92-95%. NO FURTHER OBSERVABLE SEQUELAE FROM BLOOD TRANSFUSION REACTION.
[2019-10-13 03:35] LABS: BASOPHILS PERCENT AUTO 0 % (0-2); EOSINOPHILS ABSOLUTE AUTO 0.01 K/mm3 (0.00-0.68); EOSINOPHILS PERCENT AUTO 0 % (0-6); Hemoglobin 7.3 g/dL (11.5-16.0); IMMATURE GRAN PERCENT AUTO 3 % (0-1); LYMPHOCYTES ABSOLUTE AUTO 0.64 K/mm3 (0.84-5.20); LYMPHOCYTES PERCENT AUTO 17 % (21-46); MONOCYTES ABSOLUTE AUTO 0.38 K/mm3 (0.16-1.47); MONOCYTES PERCENT AUTO 10 % (4-13); Mean Corpuscular HGB Conc 29.2 g/dL (31.5-36.5); Mean Corpuscular Volume 99 fL (80-100); NEUTROPHILS PERCENT AUTO 70 % (41-73); Platelet Count 114 K/mm3 (150-400); RDW Coefficient Variation 21.9 % (11.7-14.2); RDW Standard Deviation 74.6 fL (35.1-46.3); Red Blood Cell Count 2.52 M/mm3 (3.80-5.20); White Blood Cell Count 3.73 K/mm3 (4.00-11.30)
[2019-10-13 03:38] LABS: Mean Platelet Volume 13.3 fL (9.1-12.4)
[2019-10-13 03:49] LABS: Bun/Creatinine Ratio 18.5 (12.0-20.0); Calcium, Blood 8.4 mg/dL (8.5-10.1); Creatinine, Blood 1.84 mg/dL (0.40-1.00); Magnesium, Blood 2.3 mg/dL (1.6-2.4); Potassium, Blood 4.2 mmol/L (3.5-5.5)
--- NOTE | 2019-10-13 06:30 | NUR ---
SHIFT SUMMARY RESTS QUIETLY WHEN UNDISTURBED. MONITOR INTACT SHOWING SINUS ELLIS HEART RATE 37-50'S ASYMPTOIC DENIES PAIN OR DISCOMFORT. LUNG SOUNDS RMAIN COARSE ESPECILLY IN THE BASES. BIPAP IN PLACE 14/7 FIO2 35% RESPIRATIONS REGULAR AND EASY AT REST. ABDOMEN SOFT WITH BOWEL SOUNDS FOUR QUADS. PARISI PATENT DRAINING FERNANDA URINE. LOWER EXTREMITIES REMAIN WITH MODERATE EDEMA . CONTINUE TO MONITOR AND REPORT CHANGE IN PATIENT CONDITION
--- NOTE | 2019-10-13 08:00 | NUR ---
INITIAL ASSESMENT PT CALM AND COOPERATIVE, FOLLWOS COMMANDS AND SANTOS. DENIES PAIN AT THIS TIME. SB IN THE 30S MD AWARE, LOPPRESOR HELD, SBP STABLE, PAPL PULSES AND AFEBRILE. 4L NC AND SATS WNL. CLEAR AND DIM BILAT AND BIPAP OFF. NO S/S RESP DISTRESS OR SOB. WILL ADVANCE DIET TOLERATED AND TAKING GOOD PO INTAKE. NO BM. UO ADEQUATE VIA PARISI, CLEAR AND DARK YELLOW. WILL CONT TO MONITOR
--- NOTE | 2019-10-13 16:00 | NUR ---
PT UPDATE PT OOB TO CHAIR T/O THE DAY, TOLERATING DIET WITH NO N/V. REMAINS IN SB MD AWARE. VSS, AFEBRILE, TOLERATING 4 L NC WITH NO S/S OF RESP DISTRESS. PT NOW MED WITH TELE. AT BEDSIDE AND WILL CONT TO MONITOR
--- NOTE | 2019-10-13 19:22 | NUR ---
SHIFT SUMMARY: PATIENT TRANSFER FROM ICU-15 THIS SHIFT. PT A&O; CALM AND COOEPRATIVE WITH CARE. NO C/O PAIN OR NAUSEA SINCE ARRIVAL ON MEDICAL. PT ON O2 @ 4L; PT USES 4-5L @ HOME; HX COPD. CKD S3; DIURETICS CONTINUING. REPORT GIVEN TO ONCOMING RN.
--- NOTE | 2019-10-14 01:25 | NUR ---
*FLUID RESTRICTION* PROVIDER NOTES STATE CONTINUE FLUID RESTRICTION. NO ORDERS FOUND ON FLUID RESTRICTION.
--- NOTE | 2019-10-14 04:17 | NUR ---
SHIFT SUMMARY PT HAS NO NEW ISSUES TO REPORT PT HAS BEEN SLEEPING WELL T/O SHIFT. PT CURRENTLY SLEEPING WITH CPAP. PT CONTINUES TO HAVE HEART RATE IN LOW 40'S. CALL LIGHT IN REACH.
[2019-10-14 05:09] LABS: BASOPHILS PERCENT AUTO 0 % (0-2); EOSINOPHILS PERCENT AUTO 0 % (0-6); Hemoglobin 7.5 g/dL (11.5-16.0); IMMATURE GRAN ABSOLUTE AUTO 0.11 K/mm3 (0.00-0.10); IMMATURE GRAN PERCENT AUTO 3 % (0-1); LYMPHOCYTES ABSOLUTE AUTO 0.66 K/mm3 (0.84-5.20); LYMPHOCYTES PERCENT AUTO 15 % (21-46); MONOCYTES ABSOLUTE AUTO 0.58 K/mm3 (0.16-1.47); MONOCYTES PERCENT AUTO 14 % (4-13); Mean Corpuscular HGB Conc 28.8 g/dL (31.5-36.5); Mean Corpuscular Volume 100 fL (80-100); NEUTROPHILS ABSOLUTE AUTO 2.94 K/mm3 (1.96-9.15); NEUTROPHILS PERCENT AUTO 69 % (41-73); NRBC ABSOLUTE 0.02 K/mm3 (0.00-0.02); NRBC Auto 0.5 /100 WBC (0.0-0.2); Platelet Count 123 K/mm3 (150-400); RDW Standard Deviation 78.6 fL (35.1-46.3); Red Blood Cell Count 2.59 M/mm3 (3.80-5.20); White Blood Cell Count 4.29 K/mm3 (4.00-11.30)
[2019-10-14 05:11] LABS: Mean Platelet Volume 13.7 fL (9.1-12.4)
[2019-10-14 05:31] LABS: Albumin, Blood 2.9 g/dL (3.4-5.0); Albumin/Globulin Ratio 0.5 (0.8-1.8); Bilirubin, Total 0.6 mg/dL (0.1-1.0); Bun/Creatinine Ratio 21.1 (12.0-20.0); Calcium, Blood 8.6 mg/dL (8.5-10.1); Creatinine, Blood 1.94 mg/dL (0.40-1.00); Globulin, Blood 5.3 g/dL (2.2-4.0); Magnesium, Blood 2.6 mg/dL (1.6-2.4); Potassium, Blood 4.3 mmol/L (3.5-5.5); Total Protein, Blood 8.2 g/dL (6.4-8.2)
--- NOTE | 2019-10-14 08:13 | NUR ---
NOTIFIED PATIENT MED W/ TELE AND STS OK. ADVISED HEART RATE 40'S AND AT THIS TIME 49. D'C TOPROL. CHANGE LASIX TO 40 MG IV BID.FLUID RESTRICTION 1800 ML.
--- NOTE | 2019-10-14 18:39 | NUR ---
ALERT. ORIENTED. AMBULATORY WITH STEADY GAIT AND WALKER IN ROOM. TOLERATED SHOWER WELL. ON 4 LPM AND IS BASELINE. NO ACUTE CHANGES.TELE ON. TM
--- NOTE | 2019-10-15 02:37 | NUR ---
AFIB NOTIFIED BY Smarp. TANI NEAR START OF SHIFT THE PT HAD CONVERTED FROM SINUS ELLIS TO AFIB 90-100. PT ASYMPTOMATIC AND VITAL SIGNS WNL. NOTIFIED PRODUCT TECHNICIAN HOSPITALIST ZOEY BEDOLLA REGARDING NEW AFIB. RECIEVED ORDER TO VERIFY AFIB WITH 12 LEAD EKG AND TO CONTINUE TO MONITOR PT AT THIS TIME. PT IS ON ANTICOAGULATION WITH ELIQUIS AT THIS TIME. EKG CONFIRMED AFIB. WILL CONTINUE TO MONITOR.
--- NOTE | 2019-10-15 05:28 | NUR ---
STILL PUMP OPERATOR SUMMARY PT AAOX4 AND PLEASANT. AT START OF SHIFT PT CONVERTED TO AFIB WITH A RATE OF 90-110 FOR THE FIRST TIME SINCE ADMIT. WOOD MILLING MACHINE OPERATOR ZOEY BEDOLLA NOTIFIED, SEE PREVIOUS NOTE FOR MORE DETAILS. PER VERIFICATION ENGINEER, PT HAD BEEN IN AFIB MOST OF THE NIGHT WITH OCCASIONAL CONVERSIONS BACK TO SINUS ELLIS. VERIFICATION ENGINEER REPORTED THAT AT APPROXIMATELY 0400 THIS MORNING PT CONVERTED BACK TO SINUS ELLIS IN THE 50'S AND HAS BEEN THERE SINCE. PT ASYMPTOMATIC WHILE IN AFIB. OTHERWISE, PT HAS RESTED MOST OF THE NIGHT ASIDE FROM GETTING UP TO BSC A FEW TIMES. REMAINS ON 4L O2 VIA NC WHICH IS BASELINE. WILL CONTINUE TO MONITOR.
[2019-10-15] MEDS ORDERED: Duoneb 2.5-0.5 M3 ML INH (13:15)
--- NOTE | 2019-10-15 13:52 | NUR ---
REPORT TO [facility]. ANSWER ALL QUESTIONS. ADVISED WILL BE SENDING CHEM MEDS OVER WITH PATIENT GOING OVER AT 330PM. (INITIALS HDuarteK.).
== END 2019-10-15 13:06 | DRG 291 ==
LOC: ER 00:23 → ERHOLD 00:24 → ICUE 00:24 → ICUW 17:08 → MEDS 10-13 18:00
PROVIDERS: Emergency Medicine; Internal Medicine Critical Care Medicine; ADMIT Internal Medicine
PROC: 5A09357 Assistance with Respiratory Ventilation, Less than 24 Consecutive Hours, Continuous Positive Airway Pressure (ICD-10-PCS; principal; 2019-10-12)
DX: I50.33 Acute on chronic diastolic (congestive) heart failure (principal); J96.21 Acute and chronic respiratory failure with hypoxia; J44.1 Chronic obstructive pulmonary disease with (acute) exacerbation; C90.00 Multiple myeloma not having achieved remission; I13.0 Hypertensive heart and chronic kidney disease with heart failure and stage 1 through stage 4 chronic kidney disease, or unspecified chronic kidney disease; D61.818 Other pancytopenia; E87.2 Acidosis; Z68.43 Body mass index [BMI] 50.0-59.9, adult; E66.01 Morbid (severe) obesity due to excess calories; I27.20 Pulmonary hypertension, unspecified; I35.0 Nonrheumatic aortic (valve) stenosis; G47.33 Obstructive sleep apnea (adult) (pediatric); N18.3 Chronic kidney disease, stage 3 (moderate); D63.1 Anemia in chronic kidney disease; E78.5 Hyperlipidemia, unspecified; E03.9 Hypothyroidism, unspecified; Z86.718 Personal history of other venous thrombosis and embolism; Z99.81 Dependence on supplemental oxygen; Z79.01 Long term (current) use of anticoagulants; Z79.82 Long term (current) use of aspirin; Z79.899 Other long term (current) drug therapy
CPT/HCPCS: 36415; 36430; 36600; 51702; 71045; 80048; 80053; 81001; 82803; 83605; 83735; 83880; 84484; 85025; 86850; 86900; 86901; 86923; 87040; 93005; 93010; 94640; 94660; 94760; 94762; 96365-59; 96375; 96375-59; 97110; 97161; 97166; 97530; 97535; 99285-25; G0378; J1940; J1956; J2543; J2920; J7050; P9016

== ENCOUNTER → 2020-05-30 | Outpatient (CLI) | payer OTHER ==
[~2020-05-30] MED LIST changes: +Duoneb 2.5-0.5 M3 ML INH
== END | disposition home or self-care (01) ==
LOC: LAB SHORT 18:41
DX: J02.9 Acute pharyngitis, unspecified (principal)
CPT/HCPCS: 87081

== ENCOUNTER 2020-06-20 11:27 | Emergency (ER) | payer OTHER ==
[~2020-06-20] VITALS: Ht 152.4 cm; Wt 106.6 kg
[2020-06-20 12:49] LABS: BASOPHILS ABSOLUTE AUTO 0.01 K/mm3 (0.00-0.23); BASOPHILS PERCENT AUTO 0 % (0-2); EOSINOPHILS PERCENT AUTO 2 % (0-6); Hematocrit 43.7 % (33.0-51.0); Hemoglobin 13.1 g/dL (11.5-16.0); IMMATURE GRAN ABSOLUTE AUTO 0.02 K/mm3 (0.00-0.10); IMMATURE GRAN PERCENT AUTO 0 % (0-1); LYMPHOCYTES ABSOLUTE AUTO 2.19 K/mm3 (0.84-5.20); LYMPHOCYTES PERCENT AUTO 44 % (21-46); MONOCYTES ABSOLUTE AUTO 0.86 K/mm3 (0.16-1.47); MONOCYTES PERCENT AUTO 17 % (4-13); Mean Corpuscular HGB 32.8 pg (26.0-34.0); Mean Corpuscular Volume 109 fL (80-100); NEUTROPHILS ABSOLUTE AUTO 1.75 K/mm3 (1.96-9.15); NEUTROPHILS PERCENT AUTO 36 % (41-73); Platelet Count 78 K/mm3 (150-400); RDW Coefficient Variation 16.6 % (11.7-14.2); RDW Standard Deviation 67.7 fL (35.1-46.3); White Blood Cell Count 4.93 K/mm3 (4.00-11.30)
[2020-06-20 13:11] LABS: Albumin/Globulin Ratio 0.7 (0.8-1.8); Bilirubin, Total 0.7 mg/dL (0.1-1.0); Bun/Creatinine Ratio 10.9 (12.0-20.0); Calcium, Blood 8.5 mg/dL (8.5-10.1); Creatinine, Blood 2.3 mg/dL (0.40-1.00); Globulin, Blood 4.3 g/dL (2.2-4.0); Potassium, Blood 3.9 mmol/L (3.5-5.5); Total Protein, Blood 7.3 g/dL (6.4-8.2)
== END 2020-06-20 15:30 | disposition home or self-care (01) ==
LOC: ER 11:27
PROVIDERS: Emergency Medicine
DX: J35.1 Hypertrophy of tonsils (principal); I10 Essential (primary) hypertension; E11.9 Type 2 diabetes mellitus without complications; E78.00 Pure hypercholesterolemia, unspecified; J44.9 Chronic obstructive pulmonary disease, unspecified; Z79.82 Long term (current) use of aspirin; Z79.01 Long term (current) use of anticoagulants; Z88.5 Allergy status to narcotic agent; Z88.8 Allergy status to other drugs, medicaments and biological substances; Z86.718 Personal history of other venous thrombosis and embolism; Z87.891 Personal history of nicotine dependence; Z79.899 Other long term (current) drug therapy
CPT/HCPCS: 36415; 70491; 80053; 85025; 99284-25; Q9967

== ENCOUNTER → 2020-07-06 | Outpatient (CLI) | payer OTHER | END | disposition home or self-care (01) | LOC: PLD 08:13 → LAB SHORT 08:13 | DX: D37.05 Neoplasm of uncertain behavior of pharynx (principal) | CPT/HCPCS: 88305; 88341; 88342 ==

== ENCOUNTER 2020-08-15 10:27 | Emergency (ER) | payer OTHER ==
[~2020-08-15] VITALS: Ht 152.4 cm; Wt 104.3 kg
[2020-08-15 11:25] LABS: BASOPHILS ABSOLUTE AUTO 0.01 K/mm3 (0.00-0.23); BASOPHILS PERCENT AUTO 0 % (0-2); EOSINOPHILS ABSOLUTE AUTO 0.09 K/mm3 (0.00-0.68); EOSINOPHILS PERCENT AUTO 2 % (0-6); Hematocrit 38.6 % (33.0-51.0); Hemoglobin 11.2 g/dL (11.5-16.0); IMMATURE GRAN ABSOLUTE AUTO 0.04 K/mm3 (0.00-0.10); IMMATURE GRAN PERCENT AUTO 1 % (0-1); LYMPHOCYTES ABSOLUTE AUTO 1.22 K/mm3 (0.84-5.20); LYMPHOCYTES PERCENT AUTO 25 % (21-46); MONOCYTES ABSOLUTE AUTO 0.71 K/mm3 (0.16-1.47); MONOCYTES PERCENT AUTO 14 % (4-13); Mean Corpuscular Volume 110 fL (80-100); Mean Platelet Volume 13.6 fL (9.1-12.4); NEUTROPHILS ABSOLUTE AUTO 2.91 K/mm3 (1.96-9.15); NEUTROPHILS PERCENT AUTO 58 % (41-73); NRBC ABSOLUTE 0.02 K/mm3 (0.00-0.02); NRBC Auto 0.4 /100 WBC (0.0-0.2); Platelet Count 103 K/mm3 (150-400); RDW Coefficient Variation 18.6 % (11.7-14.2); RDW Standard Deviation 76.3 fL (35.1-46.3); White Blood Cell Count 4.98 K/mm3 (4.00-11.30)
[2020-08-15 11:41] LABS: Troponin I 0.019 ng/mL (0.000-0.040)
[2020-08-15 11:43] LABS: Albumin, Blood 2.7 g/dL (3.4-5.0); Albumin/Globulin Ratio 0.6 (0.8-1.8); Bilirubin, Total 0.9 mg/dL (0.1-1.0); Bun/Creatinine Ratio 8.8 (12.0-20.0); Calcium, Blood 8.1 mg/dL (8.5-10.1); Creatinine, Blood 2.17 mg/dL (0.40-1.00); Globulin, Blood 4.3 g/dL (2.2-4.0); Potassium, Blood 3.9 mmol/L (3.5-5.5)
[2020-08-15 12:12] LABS: Source, Urine Voided
[2020-08-15 12:16] LABS: Appearance, Urine Clear (Clear); Bilirubin, Urine Neg (Neg); Blood, Urine 1+ (Neg); Color, Urine Yellow (P-Yellow); Glucose Qualitative, Urine Neg (Neg); Ketones, Urine Neg (Neg); Leukocyte Esterase, Urine Neg (Neg); Nitrite, Urine Neg (Neg); Protein, Urine 2+ (Neg); Urobilinogen, Urine 1+ (Normal)
[2020-08-15 12:25] LABS: Bacteria Not Seen /hpf; Red Blood Cells, Urine 0-2 /hpf (0-2); Squamous Epithelial Cells Few /hpf (Few); White Blood Cells, Urine Not Seen /hpf (0-5)
[2020-08-15] MEDS ORDERED: PROM25 PO (13:20)
== END 2020-08-15 14:00 | disposition home or self-care (01) ==
LOC: ER 10:27
PROVIDERS: Emergency Medicine
DX: R11.2 Nausea with vomiting, unspecified (principal); E78.00 Pure hypercholesterolemia, unspecified; I13.0 Hypertensive heart and chronic kidney disease with heart failure and stage 1 through stage 4 chronic kidney disease, or unspecified chronic kidney disease; E11.22 Type 2 diabetes mellitus with diabetic chronic kidney disease; I50.9 Heart failure, unspecified; N18.30 Chronic kidney disease, stage 3 unspecified; J43.9 Emphysema, unspecified; Z79.01 Long term (current) use of anticoagulants; Z79.899 Other long term (current) drug therapy; Z88.5 Allergy status to narcotic agent; Z79.82 Long term (current) use of aspirin
CPT/HCPCS: 36415; 80053; 81001; 83690; 84484; 85025; 93005; 93010; 96374; 99284-25; J2550; P9612

== ENCOUNTER 2020-09-14 11:33 | Emergency (ER) | payer OTHER ==
[~2020-09-14] VITALS: Ht 154.9 cm; Wt 101.2 kg
[~2020-09-14 11:33] MED LIST changes: +PROM25 PO
[2020-09-14 12:28] LABS: BASOPHILS ABSOLUTE AUTO 0.01 K/mm3 (0.00-0.23); BASOPHILS PERCENT AUTO 0 % (0-2); EOSINOPHILS ABSOLUTE AUTO 0.02 K/mm3 (0.00-0.68); EOSINOPHILS PERCENT AUTO 0 % (0-6); Hematocrit 32.9 % (33.0-51.0); Hemoglobin 9.6 g/dL (11.5-16.0); IMMATURE GRAN ABSOLUTE AUTO 0.05 K/mm3 (0.00-0.10); IMMATURE GRAN PERCENT AUTO 1 % (0-1); LYMPHOCYTES ABSOLUTE AUTO 0.91 K/mm3 (0.84-5.20); LYMPHOCYTES PERCENT AUTO 19 % (21-46); MONOCYTES ABSOLUTE AUTO 0.88 K/mm3 (0.16-1.47); MONOCYTES PERCENT AUTO 18 % (4-13); Mean Corpuscular HGB 32.5 pg (26.0-34.0); Mean Corpuscular HGB Conc 29.2 g/dL (31.5-36.5); Mean Corpuscular Volume 112 fL (80-100); Mean Platelet Volume 12.3 fL (9.1-12.4); NEUTROPHILS ABSOLUTE AUTO 2.92 K/mm3 (1.96-9.15); NEUTROPHILS PERCENT AUTO 61 % (41-73); Platelet Count 162 K/mm3 (150-400); RDW Coefficient Variation 17.4 % (11.7-14.2); RDW Standard Deviation 72.3 fL (35.1-46.3); Red Blood Cell Count 2.95 M/mm3 (3.80-5.20); White Blood Cell Count 4.79 K/mm3 (4.00-11.30)
[2020-09-14 12:48] LABS: Albumin/Globulin Ratio 0.4 (0.8-1.8); Bilirubin, Total 0.5 mg/dL (0.1-1.0); Bun/Creatinine Ratio 9.1 (12.0-20.0); Calcium, Blood 7.9 mg/dL (8.5-10.1); Creatinine, Blood 2.09 mg/dL (0.40-1.00); Potassium, Blood 4.3 mmol/L (3.5-5.5)
== END 2020-09-14 15:26 | disposition home or self-care (01) ==
LOC: ER 11:33
PROVIDERS: Emergency Medicine
DX: K80.20 Calculus of gallbladder without cholecystitis without obstruction (principal); E78.00 Pure hypercholesterolemia, unspecified; I13.0 Hypertensive heart and chronic kidney disease with heart failure and stage 1 through stage 4 chronic kidney disease, or unspecified chronic kidney disease; E11.22 Type 2 diabetes mellitus with diabetic chronic kidney disease; N18.30 Chronic kidney disease, stage 3 unspecified; I50.9 Heart failure, unspecified; J43.9 Emphysema, unspecified; Z88.5 Allergy status to narcotic agent; Z79.84 Long term (current) use of oral hypoglycemic drugs; Z79.82 Long term (current) use of aspirin; Z79.899 Other long term (current) drug therapy; Z79.01 Long term (current) use of anticoagulants
CPT/HCPCS: 36415; 74176; 80053; 85025; 99284-25

== ENCOUNTER 2020-12-08 12:25 | Emergency (ER) | payer OTHER ==
[~2020-12-08] VITALS: Ht 167.6 cm; Wt 93.4 kg
[~2020-12-08 12:25] MED LIST changes: -ELIQUIS5 MG PO
[2020-12-08] MEDS ORDERED: NEURONTIN300 MG PO (13:00)
[2020-12-08] MEDS ORDERED: KLOR-CON 1010 ME1 PO (13:01)
== END 2020-12-08 15:01 | disposition home or self-care (01) ==
LOC: ER 12:25
DX: R06.02 Shortness of breath (principal); I50.9 Heart failure, unspecified; E11.22 Type 2 diabetes mellitus with diabetic chronic kidney disease; J44.9 Chronic obstructive pulmonary disease, unspecified; I13.0 Hypertensive heart and chronic kidney disease with heart failure and stage 1 through stage 4 chronic kidney disease, or unspecified chronic kidney disease; N18.30 Chronic kidney disease, stage 3 unspecified; Z99.81 Dependence on supplemental oxygen; Z79.84 Long term (current) use of oral hypoglycemic drugs; Z79.01 Long term (current) use of anticoagulants; Z79.899 Other long term (current) drug therapy
CPT/HCPCS: 71045; 99284-25

== ENCOUNTER → 2020-12-11 | Outpatient (CLI) | payer OTHER ==
[~2020-12-11] MED LIST changes: +KLOR-CON 1010 ME1 PO
[2020-12-11 13:11] LABS: BASOPHILS ABSOLUTE AUTO 0.01 K/mm3 (0.00-0.23); BASOPHILS PERCENT AUTO 1 % (0-2); EOSINOPHILS ABSOLUTE AUTO 0.02 K/mm3 (0.00-0.68); EOSINOPHILS PERCENT AUTO 1 % (0-6); Hematocrit 29.2 % (33.0-51.0); Hemoglobin 8.7 g/dL (11.5-16.0); IMMATURE GRAN ABSOLUTE AUTO 0.08 K/mm3 (0.00-0.10); IMMATURE GRAN PERCENT AUTO 4 % (0-1); LYMPHOCYTES ABSOLUTE AUTO 0.58 K/mm3 (0.84-5.20); LYMPHOCYTES PERCENT AUTO 29 % (21-46); MONOCYTES ABSOLUTE AUTO 0.14 K/mm3 (0.16-1.47); MONOCYTES PERCENT AUTO 7 % (4-13); Mean Corpuscular HGB 30.3 pg (26.0-34.0); Mean Corpuscular HGB Conc 29.8 g/dL (31.5-36.5); Mean Corpuscular Volume 102 fL (80-100); NEUTROPHILS ABSOLUTE AUTO 1.18 K/mm3 (1.96-9.15); NEUTROPHILS PERCENT AUTO 59 % (41-73); NRBC ABSOLUTE 0.05 K/mm3 (0.00-0.02); NRBC Auto 2.5 /100 WBC (0.0-0.2); Platelet Count 130 K/mm3 (150-400); RDW Coefficient Variation 19.6 % (11.7-14.2); RDW Standard Deviation 71.5 fL (35.1-46.3); Red Blood Cell Count 2.87 M/mm3 (3.80-5.20); White Blood Cell Count 2.01 K/mm3 (4.00-11.30)
[2020-12-11 13:15] LABS: Albumin, Blood 2.2 g/dL (3.4-5.0); Albumin/Globulin Ratio 0.4 (0.8-1.8); Bilirubin, Total 0.5 mg/dL (0.1-1.0); Creatinine, Blood 2.44 mg/dL (0.40-1.00); Globulin, Blood 5.1 g/dL (2.2-4.0); Total Protein, Blood 7.3 g/dL (6.4-8.2)
[2020-12-11 13:21] LABS: Mean Platelet Volume 13.6 fL (9.1-12.4)
== END | disposition home or self-care (01) ==
LOC: LAB SHORT 12:07 → LAB 12:07
PROVIDERS: Internal Medicine Hematology & Oncology
DX: C90.00 Multiple myeloma not having achieved remission (principal)
CPT/HCPCS: 80053; 85025

== ENCOUNTER 2021-01-12 07:38 | Day surgery (SDC) | payer OTHER ==
[~2021-01-12] VITALS: Ht 154.9 cm; Wt 89.0 kg
--- NOTE | 2021-01-12 09:52 | NUR ---
ASSUMED CARE OF PT, REPORT FROM CAROLINA LU. PT REEQUESTED TO SPEAK TO DR. BAIRD AND DR. NUNES ANESTHESIOLOGIST TOGETHER. RN CALLED DR. BAIRD INTO [facility]. PT EXPRESSED CONCERNS WITH BEING INTUBATED AND SEDATED FOR PROCEDURE. DR. BAIRD DISCUSSED PICC LINE OPTION INSTEAD OF MEDIPORT PLACEMENT. DR. BAIRD, DR. NUNES, PT AND ALL AGREED WITH THIS OPTION. DR. BAIRD CALLED DR. MARTÍNEZ TO OKAY PICC PLACEMENT. PICC NURSE CALLED AND WILL PLACE PICC LINE BEFORE PT LEAVES SDS.
--- NOTE | 2021-01-12 10:59 | NUR ---
AMBULATE WITH 1 PERSON ASSIST SHORT DISTANCES. DISCHARGE INST GIVEN TO PT ON PICC CARE AFTER. REVIEWED WITH AND DAUGHTER. PICC LINE REMAINS IN PLACE UPON DISCHARGE, GAUZE AND COBAND APPLIED FOR PRESSURE SCANT BLEEDING NOTED DUE TO PT BEING ON BLOOD THINNERS. INSTRUCTED PT TO REMOVE GAUZE/COBAND IN 30 MINUTES AND TO CALL PROVIDER IF IT CONTINUED TO BLEED. Discharged via wheelchair to private car for ride home WITH DAUGHTER. PERSONAL OXYGEN TANK WITH PT ON DISCHARGE.
== END 2021-01-12 10:46 | disposition home or self-care (01) ==
LOC: ORSCMMR 07:38 → ORD 09:15 → ORSCMMR 10:46
DX: C90.00 Multiple myeloma not having achieved remission (principal); Z53.9 Procedure and treatment not carried out, unspecified reason
CPT/HCPCS: J1642; J2250; J7120

== ENCOUNTER 2021-01-15 00:30 | Day surgery (SDC) | payer OTHER | END 2021-01-15 22:41 | disposition home or self-care (01) | LOC: WOUND | DX: L97.522 Non-pressure chronic ulcer of other part of left foot with fat layer exposed (principal); L03.032 Cellulitis of left toe; I73.9 Peripheral vascular disease, unspecified; C90.00 Multiple myeloma not having achieved remission; I13.2 Hypertensive heart and chronic kidney disease with heart failure and with stage 5 chronic kidney disease, or end stage renal disease; N18.6 End stage renal disease; I50.9 Heart failure, unspecified; I48.91 Unspecified atrial fibrillation; J44.9 Chronic obstructive pulmonary disease, unspecified; E03.9 Hypothyroidism, unspecified; E78.5 Hyperlipidemia, unspecified; Z86.718 Personal history of other venous thrombosis and embolism; Z87.891 Personal history of nicotine dependence | CPT/HCPCS: A9270; G0463 ==

== ENCOUNTER 2021-01-22 00:31 | Day surgery (SDC) | payer OTHER | END 2021-01-22 23:04 | disposition home or self-care (01) | LOC: WOUND 00:31 | DX: L97.522 Non-pressure chronic ulcer of other part of left foot with fat layer exposed (principal); S91.302D Unspecified open wound, left foot, subsequent encounter; X58.XXXD Exposure to other specified factors, subsequent encounter; I73.9 Peripheral vascular disease, unspecified | CPT/HCPCS: A9270 ==

== ENCOUNTER 2021-01-30 01:18 | Day surgery (SDC) | payer OTHER | END 2021-01-30 22:42 | disposition home or self-care (01) | LOC: WOUND 01:18 | DX: L03.032 Cellulitis of left toe (principal); L97.522 Non-pressure chronic ulcer of other part of left foot with fat layer exposed; I73.9 Peripheral vascular disease, unspecified ==

== ENCOUNTER 2021-02-06 00:34 | Day surgery (SDC) | payer OTHER | END 2021-02-06 23:05 | disposition home or self-care (01) | LOC: WOUND 00:34 | DX: L97.526 Non-pressure chronic ulcer of other part of left foot with bone involvement without evidence of necrosis (principal); C90.02 Multiple myeloma in relapse | CPT/HCPCS: 73630; 87071; 87075; 87076; 87077; 87185; 87205; 99211 ==

== ENCOUNTER 2021-02-13 03:35 | Day surgery (SDC) | payer OTHER | END 2021-02-13 23:04 | disposition home or self-care (01) | LOC: WOUND 03:35 | DX: L97.522 Non-pressure chronic ulcer of other part of left foot with fat layer exposed (principal); C90.02 Multiple myeloma in relapse | CPT/HCPCS: A9270 ==

== ENCOUNTER 2021-02-13 10:16 | Day surgery (SDC) | payer OTHER | END 2021-02-13 14:55 | disposition home or self-care (01) | LOC: ATC 10:16 | DX: C90.02 Multiple myeloma in relapse (principal); I13.0 Hypertensive heart and chronic kidney disease with heart failure and stage 1 through stage 4 chronic kidney disease, or unspecified chronic kidney disease; E11.22 Type 2 diabetes mellitus with diabetic chronic kidney disease; N18.9 Chronic kidney disease, unspecified; I50.9 Heart failure, unspecified; E66.01 Morbid (severe) obesity due to excess calories; J42 Unspecified chronic bronchitis; G47.33 Obstructive sleep apnea (adult) (pediatric); Z86.711 Personal history of pulmonary embolism; Z79.01 Long term (current) use of anticoagulants; Z86.718 Personal history of other venous thrombosis and embolism; Z87.891 Personal history of nicotine dependence; Z68.38 Body mass index [BMI] 38.0-38.9, adult; Z79.82 Long term (current) use of aspirin; Z79.84 Long term (current) use of oral hypoglycemic drugs; Z88.5 Allergy status to narcotic agent | CPT/HCPCS: 99211 ==

== ENCOUNTER 2021-02-18 13:42 | Inpatient (IN) | payer OTHER, MEDICARE ==
[~2021-02-18] VITALS: Ht 152.4 cm; Wt 89.9 kg
[2021-02-18 14:52] LABS: Alanine Aminotransfer (ALT/SGP 17 U/L (12-78); Albumin, Blood 3.4 g/dL (3.4-5.0); Alk Phos 96 U/L (50-136); Anion Gap 7 mmol/L (6-16); Aspartate Aminotrans (AST/SGOT 19 U/L (12-37); Bilirubin, Total 0.5 mg/dL (0.1-1.0); Blood Urea Nitrogen 36 mg/dL (8-24); Bun/Creatinine Ratio 11.2 (12.0-20.0); CO2, Blood 21 mmol/L (21-32); Calcium, Blood 8.1 mg/dL (8.5-10.1); Chloride, Blood 108 mmol/L (98-108); Creatinine, Blood 3.21 mg/dL (0.40-1.00); Globulin, Blood 3.3 g/dL (2.2-4.0); Glomerular Filtration Rate 15 (60-); Glucose, Blood 110 mg/dL (70-99); Sodium, Blood 136 mmol/L (136-145); Total Protein, Blood 6.7 g/dL (6.4-8.2); Troponin I <0.015 ng/mL (0.000-0.040)
[2021-02-18 14:55] LABS: BASOPHILS ABSOLUTE AUTO 0.01 K/mm3 (0.00-0.23); BASOPHILS PERCENT AUTO 0 % (0-2); EOSINOPHILS ABSOLUTE AUTO 0.01 K/mm3 (0.00-0.68); EOSINOPHILS PERCENT AUTO 0 % (0-6); Hematocrit 26.6 % (33.0-51.0); Hemoglobin 8.3 g/dL (11.5-16.0); IMMATURE GRAN ABSOLUTE AUTO 0.33 K/mm3 (0.00-0.10); IMMATURE GRAN PERCENT AUTO 5 % (0-1); LYMPHOCYTES ABSOLUTE AUTO 1.26 K/mm3 (0.84-5.20); LYMPHOCYTES PERCENT AUTO 19 % (21-46); MONOCYTES ABSOLUTE AUTO 0.76 K/mm3 (0.16-1.47); MONOCYTES PERCENT AUTO 12 % (4-13); Mean Corpuscular HGB 30.5 pg (26.0-34.0); Mean Corpuscular HGB Conc 31.2 g/dL (31.5-36.5); Mean Corpuscular Volume 98 fL (80-100); NEUTROPHILS ABSOLUTE AUTO 4.24 K/mm3 (1.96-9.15); NEUTROPHILS PERCENT AUTO 64 % (41-73); NRBC ABSOLUTE 0.03 K/mm3 (0.00-0.02); NRBC Auto 0.5 /100 WBC (0.0-0.2); RDW Standard Deviation 74.2 fL (35.1-46.3); Red Blood Cell Count 2.72 M/mm3 (3.80-5.20); White Blood Cell Count 6.61 K/mm3 (4.00-11.30)
[2021-02-18 15:01] LABS: Platelet Count 37 K/mm3 (150-400)
--- NOTE | 2021-02-18 21:54 | NUR ---
PT UPDATE PT'S DAUGHTER CALL FOR UPDATE. SPOKE TO HER ABOUT WHY PT WAS ADMITTED AND CURRENT CONDITION FOR 20 MIN.
[2021-02-19 04:05] LABS: Hematocrit 19.4 % (33.0-51.0); Mean Corpuscular HGB 30.5 pg (26.0-34.0); Mean Corpuscular HGB Conc 30.9 g/dL (31.5-36.5); Mean Corpuscular Volume 99 fL (80-100); NRBC ABSOLUTE 0.04 K/mm3 (0.00-0.02); NRBC Auto 0.8 /100 WBC (0.0-0.2); RDW Coefficient Variation 20.8 % (11.7-14.2); RDW Standard Deviation 74.1 fL (35.1-46.3); Red Blood Cell Count 1.97 M/mm3 (3.80-5.20); White Blood Cell Count 5.32 K/mm3 (4.00-11.30)
[2021-02-19 04:09] LABS: Platelet Count 39 K/mm3 (150-400)
[2021-02-19 04:29] LABS: Albumin, Blood 3.1 g/dL (3.4-5.0); Anion Gap 7 mmol/L (6-16); BAND PERCENT MAN 3 % (0-8); BASOPHILS PERCENT MAN 0 % (0-2); Blood Urea Nitrogen 37 mg/dL (8-24); Bun/Creatinine Ratio 11.2 (12.0-20.0); CO2, Blood 22 mmol/L (21-32); Calcium, Blood 7.9 mg/dL (8.5-10.1); Chloride, Blood 106 mmol/L (98-108); Creatinine, Blood 3.31 mg/dL (0.40-1.00); EOSINOPHILS PERCENT MAN 0 % (0-6); Glomerular Filtration Rate 15 (60-); Glucose, Blood 77 mg/dL (70-99); LYMPHOCYTES ABSOLUTE MAN 1.33 K/mm3 (0.84-5.20); LYMPHOCYTES PERCENT MAN 25 % (21-46); METAMYELOCYTE ABSOLUTE MAN 0.05 K/mm3 (0.00-0.00); METAMYELOCYTE PERCENT MAN 1 % (0-0); MONOCYTES ABSOLUTE MAN 0.26 K/mm3 (0.16-1.47); MONOCYTES PERCENT MAN 5 % (4-13); MYELOCYTE PERCENT MAN 2 % (0-0); Magnesium, Blood 2.1 mg/dL (1.6-2.4); NEUTROPHILS ABSOLUTE MAN 3.56 K/mm3 (1.96-9.15); Phosphorus, Blood 4.1 mg/dL (2.5-4.9); Potassium, Blood 4.5 mmol/L (3.5-5.5); SEG NEUTROPHILS PERCENT MAN 64 % (41-73); Sodium, Blood 135 mmol/L (136-145); TOTAL CELLS COUNTED 100
--- NOTE | 2021-02-19 06:05 | NUR ---
UPDATE PT HAD A LAB RESULT OF HGB: 6.0. CALL PLACED TO MD SOTO. MD SOTO WITH ORDERS FOR 1 UNIT RBC.
--- NOTE | 2021-02-19 06:07 | NUR ---
SHIFT SUMMARY PT A&OX4. SP02>92% 5L NC. TELEMTRY READS SR, HR 70'S. PT UP TO BSC MULTIPLE TIMES THIS SHIFT W/ WALKER AND 1 PERSON ASSIST. PT HAD 1 BM, 1 INCONTINENT VOID. PT SKIN FRAGILE, WOUNDS ON BOTH FOREARMS CLEANED AND MEPLEX PLACED. PT REPOSITIONED SELF IN BED. PT SLEPT PART OF NIGHT. CALL LIGHT IN REACH. WILL GIVE REPORT TO ONCOMING NURSE.
[2021-02-19 08:39] LABS: Performing Lab BLOODWORKS; Test Name ABID
--- NOTE | 2021-02-19 13:13 | NUR ---
Spiritual care visit conducted. Patient is sitting on a chair and laert. Patient tells me about her many medical issues, and the therapies she will be given. She talks about her spiritual/emotional health, her family unit complications and her baptist family. Patient has a Jainism belief system. She feels well supported by her and daughter. She admits to having some down days but she has a strong drive to fight for her health and get through each day. I normalize her experience, and provide therapeutic listening and prayer. Patient responds well and shows signs of an elevated mood. I will continue to remain available to patient and family.
--- NOTE | 2021-02-19 13:48 | NUR ---
TRANSFER TO MEDICAL FLOOR PT WAS TRANSFERRED TO MEDICAL FLOOR AT APPROXIMATELY 1345. PT LEFT THE ROOM VIA BED ACCOMPANIED BY SALVAGE INSPECTOR WOOD PARTS AND SALVAGE INSPECTOR WOOD PARTS STUDENT. PT TRANSFERRED WITH PERSONAL BELONGINGS, MEDICATION, CHART AND HOSPITAL CPAP. REPORT WAS GIVEN TO TABITHA MILIAN. VS STABLE, PT ON RA. WOUND ON LEFT BIG TOE WAS REDRESSED ACCORDING TO WOUND CLINIC ORDERS, CLEANSED WITH WOUND RAW HIDE TRIMMER AND GAUZE, DRESSSED WITH CALCIUM ALGENATE WITH SILVER, AND ROLLED GAUZE AND SECURED WITH TAPE ON THE GAUZE ONLY THEN THE PT'S SOCK WAS PLACED BACK OVER THE FOOT. PT STATES THE PICC LINE NEEDS TO BE REDRESSED TODAY OR TOMORROW WELL, THIS WAS PASSED ON IN REPORT.
--- NOTE | 2021-02-19 17:18 | NUR ---
ADMIT: 02/18/21 DISCHARGE: DX: Afib with RVR CC: [email or web address] MARY CALL: RESIDENCE: Home with spouse CAREGIVER: Osiris, James, Erickson, Other / Not Listed, DX: CKD-stage 4, COPD, CHF, DVT, HTN, see list DME: bariatric wheelchair, DM supplies, 4-wheeled walker, O2 and equipment, see list CCM: referral- 2017 & 2019 HOME HEALTH: [facility]- 2020 SUMMARY: Admit: 02/18/21 02/19/21- per chart review with Dr. Brumfield, pt is not stable to d/c at this time and will need to stay for a couple more days. Pt needs a blood transfusion but has to have it "made" for her due to antibodies. Pt at discharge will need home health. Attempted to meet with pt in room, but she was out of her room. -denia
--- NOTE | 2021-02-19 19:36 | NUR ---
SHIFT SUMMARY: PATIENT TRANSFER FROM PCU03 THIS SHIFT. PT A&O; CALM AND COOPERATIVE WITH CARE. NO C/O PAIN SINCE ARRIVAL ON MEDICAL. HGB 6.0; AWAITING COMPATIBLE UNIT PRBCs. PT UP WITH 1-ASSIST. REPORT GIVEN TO ONCOMING RN.
[2021-02-20 05:37] LABS: Hematocrit 19.2 % (33.0-51.0)
--- NOTE | 2021-02-20 06:03 | NUR ---
SHIFT SUMMARY PATIENT ALERT AND ORIENTED. HAD NO COMPLAINTS OF PAIN OR SHORTNESS OF BREATH. PATIENT WAS UP MUCH OF THE NIGHT WITH STRONG URGES TO USE THE RESTROOM. IV AND PICC PATENT AND FLUSHED. BED IN LOWEST POSITION WITH WHEELS LOCKED AND ALARM ON. CALL LIGHT WITHIN REACH. REPORT GIVEN TO ONCOMING RN.
[2021-02-20 06:12] LABS: Magnesium, Blood 2.1 mg/dL (1.6-2.4)
[2021-02-20 06:13] LABS: Albumin, Blood 3.1 g/dL (3.4-5.0); Anion Gap 8 mmol/L (6-16); Blood Urea Nitrogen 38 mg/dL (8-24); Bun/Creatinine Ratio 11.5 (12.0-20.0); CO2, Blood 21 mmol/L (21-32); Calcium, Blood 7.8 mg/dL (8.5-10.1); Chloride, Blood 104 mmol/L (98-108); Glomerular Filtration Rate 15 (60-); Glucose, Blood 65 mg/dL (70-99); Phosphorus, Blood 4.2 mg/dL (2.5-4.9); Potassium, Blood 4.3 mmol/L (3.5-5.5); Sodium, Blood 133 mmol/L (136-145)
[2021-02-20 08:37] LABS: Source, Urine Voided
[2021-02-20 09:00] LABS: Appearance, Urine Hazy (Clear); Bilirubin, Urine Neg (Neg); Blood, Urine 1+ (Neg); Color, Urine Yellow (P-Yellow); Glucose Qualitative, Urine Neg (Neg); Ketones, Urine Neg (Neg); Leukocyte Esterase, Urine 2+ (Neg); Nitrite, Urine Neg (Neg); Protein, Urine 2+ (Neg); Urobilinogen, Urine NORM (Normal)
[2021-02-20 09:01] LABS: Bacteria Few /hpf; Squamous Epithelial Cells Few /hpf (Few)
--- NOTE | 2021-02-20 13:53 | NUR ---
Spiritual care visit conducted. Patient immediately tells me about how her family did not visit her yesterday but is sure that they will stop by today. She also mentions that she is grateful for how kind the hospital staff have been to her. I provide therapeutic listening and prayer. Patient responds well and displays evidence of an elevated mood.
--- NOTE | 2021-02-20 14:38 | NUR ---
[dominique ruiz nursing at bedside, want to continue care paln with doctor shine and he has been monitoring her for the past two years.
--- NOTE | 2021-02-20 16:17 | NUR ---
02/20/21- PER CHART REVIEW WITH DR. MEYER, PT IS STILL IN NEED FOR BLOOD AND HAS NOT RECEIVED IT AT THIS TIME. NO PLAN FOR D/C AT THIS TIME. -KARSTEN
--- NOTE | 2021-02-20 18:16 | NUR ---
SHIFT SUMMARY: ONE UNIT PRBC'S TRANSFUSING AT TIME OF THIS NOTE; NO S/S OF TRANSFUSION REACTION, VSS AND AFEBRILE. NO EVENTS ON TELEMETRY, SR 70'S. L ARM PICC DRESSING CHANGED TODAY WITHOUT INCIDENT. CBG HAS BEEN < 100 ALL DAY. BEFORE DINNER CBG WAS 58, HAD A SNACK, RECHECK WAS 59. HYPOGLYCEMIC PROTOCOL ORDERED; GAVE 8 OZ APPLE JUICE AND PT EATING DINNER, NEXT RE-CHECK WAS 89. IS FORGETFUL AT TIMES. URINARY RETENTION DISCUSSED WITH DR. MEYER; PT STATED SHE DRIBBLES URINE WHEN SHE MOVES IN BED AND GETS UP TO USE BR, IS VOIDING SMALL AMOUNTS. DAUGHTER [place] VISITED FOR A SHORT TIME TODAY.
--- NOTE | 2021-02-20 19:24 | NUR ---
ASSUMED CARE RECEIVED REPORT FROM TABITHA VALERIO. PT RESTING, IN NAD. RESPS E/U. DENIES S/S TRANSFUSION REACTION; VS OBTAINED, WNL. NO OTHER ACUTE NEEDS ASSESSED AT THIS TIME. CALL LIGHT, POSSESSIONS IN REACH.
--- NOTE | 2021-02-20 21:55 | NUR ---
SPOKE TO DR. VICKERS REGARDING PT'S H&H RESULTS FROM THIS AM AND PT REQUIRING A PARTICULAR TYPE OF PRBCS D/T HX MULTIPLE ANTIBODIES, WELL ORDERED 2100 DOSE OF ELIQUIS. ORDERS RECEIVED.
[2021-02-21 06:14] LABS: Hematocrit 20.6 % (33.0-51.0); Hemoglobin 6.5 g/dL (11.5-16.0); Mean Corpuscular HGB 30.7 pg (26.0-34.0); Mean Corpuscular HGB Conc 31.6 g/dL (31.5-36.5); Mean Corpuscular Volume 97 fL (80-100); NRBC ABSOLUTE 0.07 K/mm3 (0.00-0.02); Platelet Count 75 K/mm3 (150-400); RDW Coefficient Variation 20.9 % (11.7-14.2); RDW Standard Deviation 69.2 fL (35.1-46.3); Red Blood Cell Count 2.12 M/mm3 (3.80-5.20); White Blood Cell Count 6.82 K/mm3 (4.00-11.30)
[2021-02-21 06:28] LABS: Albumin, Blood 2.8 g/dL (3.4-5.0); Anion Gap 7 mmol/L (6-16); Blood Urea Nitrogen 37 mg/dL (8-24); Bun/Creatinine Ratio 12.3 (12.0-20.0); CO2, Blood 19 mmol/L (21-32); Calcium, Blood 7.8 mg/dL (8.5-10.1); Chloride, Blood 107 mmol/L (98-108); Creatinine, Blood 3.02 mg/dL (0.40-1.00); Glomerular Filtration Rate 16 (60-); Glucose, Blood 62 mg/dL (70-99); Phosphorus, Blood 4.5 mg/dL (2.5-4.9); Potassium, Blood 4.5 mmol/L (3.5-5.5); Sodium, Blood 133 mmol/L (136-145)
--- NOTE | 2021-02-21 06:35 | NUR ---
SPOKE TO DR. SOTO REGARDING PT'S H&H. NO NEW ORDERS RECEIVED AT THIS TIME. WILL INFORM DAY RN OF RESULTS.
[2021-02-21 06:47] LABS: BAND PERCENT MAN 2 % (0-8); BASOPHILS PERCENT MAN 0 % (0-2); EOSINOPHILS PERCENT MAN 0 % (0-6); LYMPHOCYTES PERCENT MAN 22 % (21-46); MONOCYTES PERCENT MAN 6 % (4-13); MYELOCYTE ABSOLUTE MAN 0.06 K/mm3 (0.00-0.00); MYELOCYTE PERCENT MAN 1 % (0-0); NEUTROPHILS ABSOLUTE MAN 4.84 K/mm3 (1.96-9.15); SEG NEUTROPHILS PERCENT MAN 69 % (41-73); TOTAL CELLS COUNTED 100
--- NOTE | 2021-02-21 07:00 | NUR ---
[employer]BER SUMMARY PT ASLEEP, IN NAD. VS REVIEWED,WNL. NO ACUTE CHANGES NOTED IN CONDITION OVERNIGHT, TOLERATED PRBCS WELL, NO S/S REACTION NOTED. SLEPT T/O NIGHT. NO CARDIAC EVENTS REPORTED. NO ACUTE NEEDS ASSESSED AT THIS TIME. CALL LIGHT, POSSESSIONS IN REACH, BED IN LOW POSITION. REPORT GIVEN TO TABITHA ARGUETA.
--- NOTE | 2021-02-21 14:12 | NUR ---
Spiritual care visit conducted. Patient struggles to articulate the deeper emotional/spiritual issues of her disease but makes it clear that there are "down days." She speaks about the love of her and daughter and her [employer] that get her through in pain, fatigue and discomfort. She also tells me that she will have no visitors today and so I spend 45 minutes with patient letting her talk about whatever she wants to talk about. She shares about her life growing up in [place], her travels up to [place] and what her current life consists of (mostly going to doctors appointments and therapies). I provide a calming presnce, companionship and prayer. Patient responds well and shows signs of an elevated mood.
[2021-02-21 16:18] LABS: Hematocrit 28.2 % (33.0-51.0); Hemoglobin 9.2 g/dL (11.5-16.0)
--- NOTE | 2021-02-21 16:29 | NUR ---
Update 02/21/21: Per chart review with Dr. Brumfield, pt. will need an additional transfusion. Possibly discharging tomorrow depending on lab results and patient's condition. Will begin discharging planning tomorrow morning as needed.
--- NOTE | 2021-02-21 17:49 | NUR ---
SHIFT SUMMARY PT ALERT X4; FORGETFUL AT TIMES AND [place]. PT RECEIVED 2 UNITS RBC TODAY. H&H WENT UP A LITTLE BIT. VSS. CLEAR LUNG SOUNDS. NO 02; USES CPAP AT NIGHT. SATS ABOVE 90S. MEDICATED THE PT FOR BENADRYL AND TYLENOL BEFORE TRANSFUSING. PT HYPOGLYCEMIA THIS AND NIGHT; PT CBG NOW STABLE AND NOW EATING. ASYMPTOMATIC. DENIES CP AND PAIN. PT ON TELE NSR. PT DTR RECEIVED AN UPDATE FROM THIS RN.BED IS HAVING FREQ OF URINE. BLADDER SCAN POSTVOIDAL; LESS THAN 200ML. BED IS IN THE LOWEST POSITION AND CALL LIGHT WITHIN REACH
--- NOTE | 2021-02-22 07:31 | NUR ---
Kandy is alert and oriented x 3, pleasant and cooperative with her care. She slept in 30-45 minute spurts between calling for assist to the bedside commode. Each time she would void anywhere from 150-300 ml clear urine. At 0500, per order, the night hospitalist was called to notify of scan >200. New order to notify MD for scan > 375 ml
[2021-02-22 08:46] LABS: Hematocrit 31.9 % (33.0-51.0); Hemoglobin 10.5 g/dL (11.5-16.0); Mean Corpuscular HGB 31.1 pg (26.0-34.0); Mean Corpuscular HGB Conc 32.9 g/dL (31.5-36.5); Mean Corpuscular Volume 94 fL (80-100); Mean Platelet Volume 11.6 fL (9.1-12.4); NRBC ABSOLUTE 0.06 K/mm3 (0.00-0.02); NRBC Auto 0.7 /100 WBC (0.0-0.2); Platelet Count 88 K/mm3 (150-400); Red Blood Cell Count 3.38 M/mm3 (3.80-5.20); White Blood Cell Count 9.21 K/mm3 (4.00-11.30)
[2021-02-22 08:57] LABS: Bun/Creatinine Ratio 12.4 (12.0-20.0); Calcium, Blood 8.1 mg/dL (8.5-10.1); Creatinine, Blood 2.83 mg/dL (0.40-1.00); Potassium, Blood 4.3 mmol/L (3.5-5.5)
[2021-02-22 09:24] LABS: BAND PERCENT MAN 3 % (0-8); BASOPHILS PERCENT MAN 0 % (0-2); EOSINOPHILS PERCENT MAN 0 % (0-6); LYMPHOCYTES ABSOLUTE MAN 0.73 K/mm3 (0.84-5.20); LYMPHOCYTES PERCENT MAN 8 % (21-46); METAMYELOCYTE ABSOLUTE MAN 0.27 K/mm3 (0.00-0.00); METAMYELOCYTE PERCENT MAN 3 % (0-0); MONOCYTES PERCENT MAN 12 % (4-13); MYELOCYTE ABSOLUTE MAN 0.18 K/mm3 (0.00-0.00); MYELOCYTE PERCENT MAN 2 % (0-0); SEG NEUTROPHILS PERCENT MAN 72 % (41-73); TOTAL CELLS COUNTED 100
--- NOTE | 2021-02-22 11:01 | NUR ---
Spiritual care visit conducted. Patient voices her concerns and excitement about the DC to home today. I provide prayer and anxiety containment. Patient responds well and signs of reduced stress.
--- NOTE | 2021-02-22 11:14 | NUR ---
UPDATE 02/21/21: PER CHART REIVEW THIS AM. PT. READY TO D/C. REVIEW DISCHARGE PLAN WITH PATIENT. SHE HAS WHAT SHE NEEDS AT HOME, HER DAUGHTER WILL STATISTICAL MACHINE SERVICER ANY NEEDED MEDS AT THE PHARMACY, NO MOBILITY CONCERNS AT HOME, PT. DENIED NEED FOR ANY ADDITIONAL DME OR SUPPLIES. PATIENT'S DAUGHTER WILL PICK HER UP. DISCHARGE LETTER GIVEN TO PT. WITH NOTES INCLUDING SCHEDULED VISIT 02/28/21 AT 11AM WITH PCP AND TRIAGE NUMBER IN CASE OF URGENT CONCERNS. PT. STATED HER UNDERSTANDING.
[2021-02-22 11:43] LABS: Result SEE SEPARATE REPORT
--- NOTE | 2021-02-22 11:47 | NUR ---
PT DISCHARGED TO HOME WITH HOMEHEALTH. PT AZRA IS HER DTR TRANSPORTED VIA . PT H&H STABLE. PT WILL FU TO DR WITHIN A WEEK. PT WILL ALSO HAVE FU WITH HER LABS AT THE DTR OFFICE. DTR AT BEDSIDE GIVEN PACKET AND EDUCATED ABOUT THE DISCHARGE PLAN. PT TOOK OF HER MEPELEX ON HER RIGHT ELBOW AND STARTED BLEEDING AT BEDSIDE. PT DENIES DIZZINESS.CHANGED THE DRESSING AND PRESSURE ON THE AREA.
== END 2021-02-22 11:34 | disposition home health service (06) | DRG 308 ==
LOC: ER 13:42 → PCU 13:43 → MEDS 02-19 13:55
PROVIDERS: Emergency Medicine; Internal Medicine; Internal Medicine Nephrology; ADMIT Family Medicine
DX: I48.19 Other persistent atrial fibrillation (principal); I50.43 Acute on chronic combined systolic (congestive) and diastolic (congestive) heart failure; C90.00 Multiple myeloma not having achieved remission; N25.81 Secondary hyperparathyroidism of renal origin; N17.9 Acute kidney failure, unspecified; D68.59 Other primary thrombophilia; E87.1 Hypo-osmolality and hyponatremia; I13.2 Hypertensive heart and chronic kidney disease with heart failure and with stage 5 chronic kidney disease, or end stage renal disease; N18.5 Chronic kidney disease, stage 5; G47.33 Obstructive sleep apnea (adult) (pediatric); E78.5 Hyperlipidemia, unspecified; E03.9 Hypothyroidism, unspecified; R58 Hemorrhage, not elsewhere classified; E66.01 Morbid (severe) obesity due to excess calories; D69.6 Thrombocytopenia, unspecified; E11.22 Type 2 diabetes mellitus with diabetic chronic kidney disease; D63.1 Anemia in chronic kidney disease; E11.621 Type 2 diabetes mellitus with foot ulcer; J43.9 Emphysema, unspecified; Z86.711 Personal history of pulmonary embolism; Z98.891 History of uterine scar from previous surgery; Z90.710 Acquired absence of both cervix and uterus; Z90.722 Acquired absence of ovaries, bilateral; Z98.890 Other specified postprocedural states; Z87.891 Personal history of nicotine dependence; Z88.8 Allergy status to other drugs, medicaments and biological substances; Z79.01 Long term (current) use of anticoagulants; Z79.82 Long term (current) use of aspirin; Z79.899 Other long term (current) drug therapy
CPT/HCPCS: 36415; 36430; 71046; 76770; 80048; 80053; 80069; 81001; 82947; 83735; 83880; 84443; 84484; 85014; 85018; 85025; 86850; 86860; 86870; 86880; 86900; 86901; 86906; 86922; 86970; 87086; 93005; 93010; 94640; 94660; 94762; 96365; 96366; 96372; 96376; 97110; 97116; 97162; 97166; 97530; 97535; 99285-25; A9270; G0378; J0881; J1200; J1940; J7030; J7040; P9016

== ENCOUNTER 2021-03-07 02:16 | Day surgery (SDC) | payer OTHER | END 2021-03-07 23:49 | disposition home or self-care (01) | LOC: WOUND 02:16 | DX: L97.522 Non-pressure chronic ulcer of other part of left foot with fat layer exposed (principal); S51.011D Laceration without foreign body of right elbow, subsequent encounter; X58.XXXD Exposure to other specified factors, subsequent encounter; C90.02 Multiple myeloma in relapse | CPT/HCPCS: A9270; G0463 ==

== ENCOUNTER 2021-03-08 10:42 | Day surgery (SDC) | payer OTHER | END 2021-03-08 13:05 | disposition home or self-care (01) | LOC: ATC 10:42 | DX: C90.00 Multiple myeloma not having achieved remission (principal); T82.524A Displacement of infusion catheter, initial encounter; G47.33 Obstructive sleep apnea (adult) (pediatric); I13.0 Hypertensive heart and chronic kidney disease with heart failure and stage 1 through stage 4 chronic kidney disease, or unspecified chronic kidney disease; E11.22 Type 2 diabetes mellitus with diabetic chronic kidney disease; N18.9 Chronic kidney disease, unspecified; I50.9 Heart failure, unspecified; Y71.8 Miscellaneous cardiovascular devices associated with adverse incidents, not elsewhere classified; Z87.891 Personal history of nicotine dependence; Z79.82 Long term (current) use of aspirin; Z79.01 Long term (current) use of anticoagulants; Z79.84 Long term (current) use of oral hypoglycemic drugs | CPT/HCPCS: 36569; 71045; C1751 ==

== ENCOUNTER 2021-03-09 02:01 | Emergency (ER) | payer OTHER ==
[~2021-03-09] VITALS: Ht 152.4 cm; Wt 88.9 kg
[2021-03-09 02:44] LABS: BASOPHILS ABSOLUTE AUTO 0.02 K/mm3 (0.00-0.23); BASOPHILS PERCENT AUTO 0 % (0-2); EOSINOPHILS PERCENT AUTO 0 % (0-6); Hematocrit 28.2 % (33.0-51.0); Hemoglobin 8.8 g/dL (11.5-16.0); IMMATURE GRAN ABSOLUTE AUTO 0.49 K/mm3 (0.00-0.10); IMMATURE GRAN PERCENT AUTO 5 % (0-1); LYMPHOCYTES ABSOLUTE AUTO 2.31 K/mm3 (0.84-5.20); LYMPHOCYTES PERCENT AUTO 23 % (21-46); MONOCYTES PERCENT AUTO 13 % (4-13); Mean Corpuscular HGB Conc 31.2 g/dL (31.5-36.5); Mean Corpuscular Volume 96 fL (80-100); Mean Platelet Volume 12.9 fL (9.1-12.4); NEUTROPHILS ABSOLUTE AUTO 5.82 K/mm3 (1.96-9.15); NEUTROPHILS PERCENT AUTO 59 % (41-73); Platelet Count 235 K/mm3 (150-400); RDW Coefficient Variation 19.4 % (11.7-14.2); RDW Standard Deviation 66.6 fL (35.1-46.3); Red Blood Cell Count 2.93 M/mm3 (3.80-5.20); White Blood Cell Count 9.94 K/mm3 (4.00-11.30)
[2021-03-09 02:58] LABS: Albumin, Blood 2.9 g/dL (3.4-5.0); Albumin/Globulin Ratio 0.9 (0.8-1.8); Bilirubin, Total 0.5 mg/dL (0.1-1.0); Bun/Creatinine Ratio 10.9 (12.0-20.0); Calcium, Blood 9.5 mg/dL (8.5-10.1); Creatinine, Blood 3.13 mg/dL (0.40-1.00); Globulin, Blood 3.4 g/dL (2.2-4.0); Potassium, Blood 3.6 mmol/L (3.5-5.5); Total Protein, Blood 6.3 g/dL (6.4-8.2)
[2021-03-09 09:16] LABS: Hematocrit 23.7 % (33.0-51.0); Hemoglobin 7.3 g/dL (11.5-16.0)
== END 2021-03-09 12:13 | disposition short-term general hospital (02) ==
LOC: ER 02:01
PROVIDERS: Emergency Medicine; Student in an Organized Health Care Education/Training Program
DX: K92.0 Hematemesis (principal); I10 Essential (primary) hypertension; E11.9 Type 2 diabetes mellitus without complications; Z79.899 Other long term (current) drug therapy; Z88.5 Allergy status to narcotic agent; Z88.6 Allergy status to analgesic agent; Z79.01 Long term (current) use of anticoagulants
CPT/HCPCS: 80053; 85014; 85018; 85025; 86850; 86870; 86900; 86901; 96365; 96366; 96368; 96375; 99285-25; C9113; C9132; J2405; J2597; J7120

== ENCOUNTER 2021-05-18 06:26 | Inpatient (IN) | payer OTHER ==
[~2021-05-18] VITALS: Ht 157.5 cm; Wt 89.1 kg
[2021-05-18 07:14] LABS: Source, Urine Clean Catch
[2021-05-18 07:20] LABS: Appearance, Urine Hazy (Clear); Bilirubin, Urine Neg (Neg); Blood, Urine 4+ (Neg); Color, Urine Yellow (P-Yellow); Glucose Qualitative, Urine Neg (Neg); Ketones, Urine Neg (Neg); Leukocyte Esterase, Urine 1+ (Neg); Nitrite, Urine Neg (Neg); Protein, Urine 3+ (Neg); Specific Gravity, Urine 1.015 (1.003-1.022); Urobilinogen, Urine NORM (Normal)
[2021-05-18 07:21] LABS: Hematocrit 28.2 % (33.0-51.0); Hemoglobin 8.7 g/dL (11.5-16.0); Mean Corpuscular HGB 28.6 pg (26.0-34.0); Mean Corpuscular HGB Conc 30.9 g/dL (31.5-36.5); Mean Corpuscular Volume 93 fL (80-100); Platelet Count 89 K/mm3 (150-400); RDW Coefficient Variation 19.3 % (11.7-14.2); RDW Standard Deviation 65.1 fL (35.1-46.3); Red Blood Cell Count 3.04 M/mm3 (3.80-5.20); White Blood Cell Count 7.11 K/mm3 (4.00-11.30)
[2021-05-18 07:29] LABS: White Blood Cells, Urine 25-50 /hpf (0-5)
[2021-05-18 07:30] LABS: Bacteria Many /hpf
[2021-05-18 07:32] LABS: Squamous Epithelial Cells Few /hpf (Few)
[2021-05-18 07:33] LABS: Amorphous Mod (0-Heavy); Granular Casts 0-2 /lpf (0)
[2021-05-18 07:35] LABS: Troponin I 0.114 ng/mL (0.000-0.040)
[2021-05-18 07:36] LABS: Albumin, Blood 2.9 g/dL (3.4-5.0); Albumin/Globulin Ratio 0.8 (0.8-1.8); Bilirubin, Total 0.7 mg/dL (0.1-1.0); Bun/Creatinine Ratio 12.5 (12.0-20.0); Calcium, Blood 8.5 mg/dL (8.5-10.1); Creatinine, Blood 4.07 mg/dL (0.40-1.00); Globulin, Blood 3.7 g/dL (2.2-4.0); Potassium, Blood 3.6 mmol/L (3.5-5.5); Total Protein, Blood 6.6 g/dL (6.4-8.2)
[2021-05-18 07:47] LABS: BASOPHILS PERCENT MAN 0 % (0-2); EOSINOPHILS ABSOLUTE MAN 0.07 K/mm3 (0.00-0.68); EOSINOPHILS PERCENT MAN 1 % (0-6); LYMPHOCYTES ABSOLUTE MAN 1.35 K/mm3 (0.84-5.20); LYMPHOCYTES PERCENT MAN 19 % (21-46); MONOCYTES ABSOLUTE MAN 1.06 K/mm3 (0.16-1.47); MONOCYTES PERCENT MAN 15 % (4-13); NEUTROPHILS ABSOLUTE MAN 4.62 K/mm3 (1.96-9.15); SEG NEUTROPHILS PERCENT MAN 65 % (41-73); TOTAL CELLS COUNTED 100
[2021-05-18 08:35] LABS: SARS-Cov-2 (COVID-19) PCR, MMC POSITIVE (NEGATIVE)
[2021-05-18] MEDS ORDERED: SPIRIVA RESPIMAT4 G3 IH (09:49)
[2021-05-18] MEDS ORDERED: SPIRIVA RESPIMAT4 G3 INH (11:41)
[2021-05-18] MEDS ORDERED: FUROSEMIDE20 MG PO (11:41)
[2021-05-18] MEDS ORDERED: PANTOPRAZOLE SO40 M2 PO (11:42)
[2021-05-18] MEDS ORDERED: Synthroid/Levo0.2 MG PO (11:43)
[2021-05-18 17:13] LABS: C-REACTIVE PROTEIN, EXT RANGE 14.6 mg/dL (0.000-0.300)
--- NOTE | 2021-05-18 17:15 | NUR ---
PT ARRIVED TO UNIT ON 4L OXYGEN, SHE IS ORIENTED TO SELF AND SURROUNDINGS AND FOLLOWING DIRECTIONS, UNSURE OTHERWISE. SHE FALLS ASLEEP QUICKLY BUT WILL AWAKE TO ANSWER QUESTIONS. SATS 99% AT THIS TIME. SHE HAS CALL LIGHT IN REACH, EDUCATED ON USE. BED ALARM IS ON. PT APPEARS TO BE WORKING TO BREATH BUT DENIED SOB WHEN ASKED. DENIES PAIN T/O. DNR BAND PLACED PER ORDERS. IV FLUIDS ARE INFUSING. CURRENTLY SLEEPING IN BED SNORING, DENIED FURTHER NEEDS.
--- NOTE | 2021-05-18 18:19 | NUR ---
no acute changes since arrival to floor. in room. awaiting dr. mullen to come talk with family. call light in reach and bed alarm is on.
[2021-05-19 00:26] LABS: BASOPHILS PERCENT AUTO 0 % (0-2); EOSINOPHILS ABSOLUTE AUTO 0.01 K/mm3 (0.00-0.68); EOSINOPHILS PERCENT AUTO 0 % (0-6); Hematocrit 26.2 % (33.0-51.0); IMMATURE GRAN PERCENT AUTO 6 % (0-1); LYMPHOCYTES ABSOLUTE AUTO 0.77 K/mm3 (0.84-5.20); LYMPHOCYTES PERCENT AUTO 15 % (21-46); MONOCYTES ABSOLUTE AUTO 0.37 K/mm3 (0.16-1.47); MONOCYTES PERCENT AUTO 7 % (4-13); Mean Corpuscular HGB 28.9 pg (26.0-34.0); Mean Corpuscular HGB Conc 30.5 g/dL (31.5-36.5); Mean Corpuscular Volume 95 fL (80-100); NEUTROPHILS ABSOLUTE AUTO 3.61 K/mm3 (1.96-9.15); NEUTROPHILS PERCENT AUTO 71 % (41-73); Platelet Count 70 K/mm3 (150-400); RDW Coefficient Variation 19.3 % (11.7-14.2); RDW Standard Deviation 66.2 fL (35.1-46.3); Red Blood Cell Count 2.77 M/mm3 (3.80-5.20); White Blood Cell Count 5.06 K/mm3 (4.00-11.30)
[2021-05-19 00:42] LABS: Albumin, Blood 2.6 g/dL (3.4-5.0); Albumin/Globulin Ratio 0.7 (0.8-1.8); Bilirubin, Total 0.3 mg/dL (0.1-1.0); Bun/Creatinine Ratio 13.7 (12.0-20.0); Calcium, Blood 7.2 mg/dL (8.5-10.1); Creatinine, Blood 4.22 mg/dL (0.40-1.00); Globulin, Blood 3.5 g/dL (2.2-4.0); Potassium, Blood 4.1 mmol/L (3.5-5.5); Total Protein, Blood 6.1 g/dL (6.4-8.2)
[2021-05-19 00:45] LABS: BAND PERCENT MAN 9 % (0-8); BASOPHILS PERCENT MAN 0 % (0-2); EOSINOPHILS PERCENT MAN 0 % (0-6); LYMPHOCYTES PERCENT MAN 8 % (21-46); MONOCYTES PERCENT MAN 6 % (4-13); NEUTROPHILS ABSOLUTE MAN 4.35 K/mm3 (1.96-9.15); SEG NEUTROPHILS PERCENT MAN 77 % (41-73); TOTAL CELLS COUNTED 100
--- NOTE | 2021-05-19 07:51 | NUR ---
SHIFT SUMMARY S/P WENDYID, A/O X4 THOUGH SHE WAS A LITTLE LETHARGIC AT THE BEGINNING OF THE SHIFT, INCONTINENT c ATTENDS IN PLACE, SPOUCE STAYED THE NIGHT DUE TO POSSIBLITY OF COMFORT CARE STATUS BEING CONSIDERED. DENIES PAIN T/O SHIFT. CALL LIGHT IN REACH, REPORT GIVEN TO DAY RN.
[2021-05-19 14:23] LABS: Source, Urine Catheter
[2021-05-19 14:30] LABS: Appearance, Urine Clear (Clear); Bilirubin, Urine Neg (Neg); Blood, Urine 4+ (Neg); Color, Urine Yellow (P-Yellow); Glucose Qualitative, Urine 4+ (Neg); Ketones, Urine Neg (Neg); Leukocyte Esterase, Urine Neg (Neg); Nitrite, Urine Neg (Neg); Protein, Urine 3+ (Neg); Urobilinogen, Urine NORM (Normal)
[2021-05-19 14:47] LABS: Bacteria Few /hpf; Red Blood Cells, Urine 0-2 /hpf (0-2); Squamous Epithelial Cells Few /hpf (Few); White Blood Cells, Urine 0-2 /hpf (0-5)
--- NOTE | 2021-05-19 15:26 | NUR ---
SHIFT SUMMARY: COVID PATIENT IS ALERT AND ORIENTED X3. PATIENT IS ON 4L NC AT THIS TIME. SHE DENIES SOB. SHE TOLERATES HER PO CLEARS DIET. PARISI WAS PLACED FOR THE DR. MERCADO TO WATCH HER I&O'S. PARISI IS PATENT AND HAS NO KINKS IN TUBING. PATIENT IS ALLOWED TO HAVE IN THE ROOM BUT NOT TO STAY OVERNIGHT. HE WAS WITH HER MAJORITY OF THE MORNING. ENCOURAGING PATIENT TO DEEP BREATH AND COUGH. SHE IS CURRENTLY LAYING IN BED WATCHING TV. CALL LIGHT WITHIN REACH. THE PLAN IS TO CONTINUE MEDICATIONS AND TO CONTINUE TO SEE IMPROVEMENT WITH HER SYMPTOMS.
--- NOTE | 2021-05-19 16:23 | NUR ---
PATIENTS BLOOD SUGAR IS 385. SHE DENIES ANY HYPERGLYCEMIC SYMPTOMS AT THIS TIME. CALLED DR. PRINCE ABOUT THE SITUATION AND SHE WANTS HER TO BE GIVEN 8 UNITS HUMALOG AND TO HAVE HER SLIDING SCALE ADJUSTED TO MEDIUM INSTEAD OF LOW. CALL LIGHT WITHIN REACH. SHE IS CURRENTLY LAYING IN BED WATCHING TV. WILL CONTINUE TO MONITOR BLOOD SUGAR.
[2021-05-20 04:31] LABS: Hematocrit 27.3 % (33.0-51.0); Mean Corpuscular HGB 28.2 pg (26.0-34.0); Mean Corpuscular HGB Conc 29.3 g/dL (31.5-36.5); Mean Corpuscular Volume 96 fL (80-100); NRBC ABSOLUTE 0.06 K/mm3 (0.00-0.02); NRBC Auto 0.7 /100 WBC (0.0-0.2); Platelet Count 72 K/mm3 (150-400); RDW Coefficient Variation 18.7 % (11.7-14.2); RDW Standard Deviation 66.3 fL (35.1-46.3); Red Blood Cell Count 2.84 M/mm3 (3.80-5.20); White Blood Cell Count 8.54 K/mm3 (4.00-11.30)
[2021-05-20 04:46] LABS: Albumin, Blood 2.7 g/dL (3.4-5.0); Anion Gap 12 mmol/L (6-16); Blood Urea Nitrogen 69 mg/dL (8-24); Bun/Creatinine Ratio 17.2 (12.0-20.0); CO2, Blood 17 mmol/L (21-32); Calcium, Blood 7.9 mg/dL (8.5-10.1); Chloride, Blood 107 mmol/L (98-108); Glomerular Filtration Rate 11 (60-); Glucose, Blood 220 mg/dL (70-99); Phosphorus, Blood 6.9 mg/dL (2.5-4.9); Potassium, Blood 4.6 mmol/L (3.5-5.5); Sodium, Blood 136 mmol/L (136-145)
[2021-05-20 05:46] LABS: BAND PERCENT MAN 12 % (0-8); BASOPHILS PERCENT MAN 0 % (0-2); EOSINOPHILS PERCENT MAN 0 % (0-6); LYMPHOCYTES ABSOLUTE MAN 0.34 K/mm3 (0.84-5.20); LYMPHOCYTES PERCENT MAN 4 % (21-46); METAMYELOCYTE ABSOLUTE MAN 0.34 K/mm3 (0.00-0.00); METAMYELOCYTE PERCENT MAN 4 % (0-0); MONOCYTES PERCENT MAN 0 % (4-13); NEUTROPHILS ABSOLUTE MAN 7.85 K/mm3 (1.96-9.15); SEG NEUTROPHILS PERCENT MAN 80 % (41-73); TOTAL CELLS COUNTED 100
--- NOTE | 2021-05-20 07:19 | NUR ---
SHIFT SUMMARY S/P COVID 19, RESPONDS TO VOICE, ANSWERS QUESTIONS APPROPRIATELY, DENIES PAIN, DENIES SOB, ON 3L O2 VIA NC, PARISI IN PLACE DRAINING TO GRAVITY. NO ACUTE EVENTS THIS SHIFT. CALL LIGHT IN REACH, REPORT GIVEN TO DAY RN.
--- NOTE | 2021-05-20 18:49 | NUR ---
SHIFT SUMMARY PT HAS MADE GREAT IMPROVEMENTS THIS SHIFT. SHE IS ALERT AND CONVERSES APPROPRIATELY. HOWEVER, SHE DOES HAVE MOMENTS OF FORGETFULNESS. SHE IS ON 3 LITERS O2 AND MAINTAINING O2 SATS >92%. SHE WORKES WITH PHYSICAL THERAPY AND GOT UP TO THE CHAIR FOR PART OF THE DAY. SHE TOLERATED AMBULATION WELL. CAME IN AND SIGNED POLST. EVENING CBG WAS 418 SO CALL WAS MADE TO DR. CASTILLO. ORDERS RECEIVED TO CHANGE PT TO HIGH SLIDING SCALE AND PT WAS COVERED WITH 15 UNITS INSULIN. VSS. WILL REPORT TO ONCOMING RN.
[2021-05-21 04:40] LABS: Hematocrit 26.3 % (33.0-51.0); Hemoglobin 7.8 g/dL (11.5-16.0); Mean Corpuscular HGB Conc 29.7 g/dL (31.5-36.5); Mean Corpuscular Volume 98 fL (80-100); NRBC Auto 1.4 /100 WBC (0.0-0.2); Platelet Count 64 K/mm3 (150-400); RDW Coefficient Variation 18.8 % (11.7-14.2); RDW Standard Deviation 67.5 fL (35.1-46.3); Red Blood Cell Count 2.69 M/mm3 (3.80-5.20); White Blood Cell Count 14.76 K/mm3 (4.00-11.30)
[2021-05-21 04:53] LABS: Albumin, Blood 2.7 g/dL (3.4-5.0); Anion Gap 12 mmol/L (6-16); Blood Urea Nitrogen 75 mg/dL (8-24); Bun/Creatinine Ratio 19.4 (12.0-20.0); CO2, Blood 15 mmol/L (21-32); Calcium, Blood 7.6 mg/dL (8.5-10.1); Chloride, Blood 109 mmol/L (98-108); Creatinine, Blood 3.86 mg/dL (0.40-1.00); Glomerular Filtration Rate 12 (60-); Glucose, Blood 194 mg/dL (70-99); Phosphorus, Blood 7.3 mg/dL (2.5-4.9); Potassium, Blood 4.7 mmol/L (3.5-5.5); Sodium, Blood 136 mmol/L (136-145)
[2021-05-21 05:50] LABS: BAND PERCENT MAN 12 % (0-8); BASOPHILS PERCENT MAN 0 % (0-2); EOSINOPHILS PERCENT MAN 0 % (0-6); LYMPHOCYTES ABSOLUTE MAN 0.44 K/mm3 (0.84-5.20); LYMPHOCYTES PERCENT MAN 3 % (21-46); MONOCYTES ABSOLUTE MAN 0.29 K/mm3 (0.16-1.47); MONOCYTES PERCENT MAN 2 % (4-13); MYELOCYTE ABSOLUTE MAN 0.73 K/mm3 (0.00-0.00); MYELOCYTE PERCENT MAN 5 % (0-0); NEUTROPHILS ABSOLUTE MAN 13.28 K/mm3 (1.96-9.15); SEG NEUTROPHILS PERCENT MAN 78 % (41-73); TOTAL CELLS COUNTED 100
--- NOTE | 2021-05-21 06:06 | NUR ---
SHIFT SUMMARY S/P COVID, PT APPEARS TO BE DOING BETTER THIS SHIFT, LUNGS CLEARER, STILL DIMINISHED BUT LESS CRACKLES, O2 REDUCED TO 1L VIA NC AND SHE HAS BEEN TOLERATING IT WELL T/O THE SHIFT. ASSISTS c REPOSITIONING, MORE ENGAGING c NURSING STAFF. NO ACUTE EVENTS THIS SHIFT. CALL LIGHT IN REACH, WILL CTM AND REPORT TO DAY RN.
--- NOTE | 2021-05-21 16:51 | NUR ---
SHIFT SUMMARY PT SEEMS TO BE FEELING MUCH BETTER THIS SHIFT. SHE WORKED WITH PHYSICAL AND OCCUPATIONAL THERAPY TODAY AND DID VERY WELL. ON 1-2 LITERS O2 VIA NC WHICH IS HER BASELINE. CALLS OFTEN AND IS VERY INTERACTIVE WITH STAFF. PT EXPRESSES THAT SHE IS READY TO GO HOME. VSS. WILL REPORT TO ONCOMING RN.
[2021-05-22 05:06] LABS: BASOPHILS ABSOLUTE AUTO 0.03 K/mm3 (0.00-0.23); BASOPHILS PERCENT AUTO 0 % (0-2); EOSINOPHILS PERCENT AUTO 0 % (0-6); Hematocrit 23.9 % (33.0-51.0); Hemoglobin 7.1 g/dL (11.5-16.0); Mean Corpuscular HGB 28.4 pg (26.0-34.0); Mean Corpuscular HGB Conc 29.7 g/dL (31.5-36.5); Mean Corpuscular Volume 96 fL (80-100); NRBC Auto 0.8 /100 WBC (0.0-0.2); Platelet Count 65 K/mm3 (150-400); RDW Coefficient Variation 18.6 % (11.7-14.2); RDW Standard Deviation 65.5 fL (35.1-46.3); White Blood Cell Count 11.93 K/mm3 (4.00-11.30)
[2021-05-22 05:44] LABS: Bun/Creatinine Ratio 18.5 (12.0-20.0); Calcium, Blood 8.2 mg/dL (8.5-10.1); Creatinine, Blood 4.53 mg/dL (0.40-1.00); Potassium, Blood 5.2 mmol/L (3.5-5.5)
[2021-05-22 05:45] LABS: IMMATURE GRAN PERCENT AUTO 18 % (0-1); LYMPHOCYTES ABSOLUTE AUTO 0.33 K/mm3 (0.84-5.20); LYMPHOCYTES PERCENT AUTO 3 % (21-46); MONOCYTES ABSOLUTE AUTO 0.34 K/mm3 (0.16-1.47); MONOCYTES PERCENT AUTO 3 % (4-13); NEUTROPHILS ABSOLUTE AUTO 9.13 K/mm3 (1.96-9.15); NEUTROPHILS PERCENT AUTO 77 % (41-73)
--- NOTE | 2021-05-22 05:50 | NUR ---
SHIFT SUMMARY: PT REMAINS ON 2LO2 WHICH IS HER BASELINE. LUNGS COARSE T/O WITH FAINT WHEEZING. INCONTINENT OF STOOL TWICE. 2 MAX ASSIST FOR REPOSITIONING. PT PLEASANT AND COOPERATIVE WITH CARE. APPEARS TO BE RESTING MOST OF NIGHT.
[2021-05-22 05:52] LABS: BAND PERCENT MAN 11 % (0-8); BASOPHILS PERCENT MAN 0 % (0-2); EOSINOPHILS PERCENT MAN 0 % (0-6); LYMPHOCYTES ABSOLUTE MAN 0.71 K/mm3 (0.84-5.20); LYMPHOCYTES PERCENT MAN 6 % (21-46); METAMYELOCYTE ABSOLUTE MAN 0.47 K/mm3 (0.00-0.00); METAMYELOCYTE PERCENT MAN 4 % (0-0); MONOCYTES ABSOLUTE MAN 0.11 K/mm3 (0.16-1.47); MONOCYTES PERCENT MAN 1 % (4-13); NEUTROPHILS ABSOLUTE MAN 10.61 K/mm3 (1.96-9.15); SEG NEUTROPHILS PERCENT MAN 78 % (41-73); TOTAL CELLS COUNTED 100
--- NOTE | 2021-05-22 12:31 | NUR ---
DR. PRESTON CONSULTED ON PATIENT, ORDERS RECIEVED TO CONSULT DR LEONG REGARDING PERMACATH. SPOKE WITH DR LEONG WHO STATED TO KEEP PATIENT NPO AT THIS TIME. NOTIFIED DR ACUÑA OF UPDATES REGARDING PATIENT AND NOTIFED PATIENT OF NPO STATUS.
--- NOTE | 2021-05-22 13:28 | NUR ---
PT PULLED OUT POWERGLIDE THAT WAS PLACED THIS AFTERNOON. NO BLEEDING NOTED FROM SITE. PT REPORTS NOT KNOWING WHAT HAPPENED. HER STATES THAT SHE WAS HOLDING IT IN HER HAND WHEN HE WALKED IN.
[2021-05-22 13:42] LABS: Stool Occult Blood Guaiac 1 Neg (Neg)
--- NOTE | 2021-05-22 15:02 | NUR ---
PT LEFT FOR PROCEDURE TO HAVE PERMACATH PLACED AT THIS TIME. PT ABLE TO TRANSFER TO WHEELCHAIR WITH GB/FWW. ON 2L NASAL CANULA.
--- NOTE | 2021-05-22 15:09 | NUR ---
notifed dr riojas that pt has left to have perma cath placed. he would like her to have dialysis tonight if possible, if unable he stated the morning is fine. spoke with dialysis nurse who will let me know if she will be able to take her for dialysis.
--- NOTE | 2021-05-22 15:23 | NUR ---
learning support resource room teacher notified me that pt will recieve dialysis tomorrow.
--- NOTE | 2021-05-22 17:02 | NUR ---
BLOOD TRANSFUSION STARTED AT THIS TIME. PT LAYING IN BED WATCHING BOXING ON TV. DENIES SOB OR CP. REPORTS WANTING TO TAKE A NAP AT THIS TIME.
--- NOTE | 2021-05-22 18:45 | NUR ---
SHIFT SUMMARY PT TOLERATED PROCEDURES WELL TODAY. BLOOD CONTINUES TO INFUSE AND PATIENT DENIES SHORTNESS OF BREATH. PT [id number], CONFUSION ONLY SEEN UPON FIRST WAKING UP. REMAINS ON 2L NC WHICH IS BASELINE FOR PT. LUNGS COARSE T/O PT ABLE TO TAKE DEEP BREATHS. LIQUID BM X1. PARISI PATENT AND DRAINING.
[2021-05-23 00:16] LABS: BASOPHILS ABSOLUTE AUTO 0.02 K/mm3 (0.00-0.23); BASOPHILS PERCENT AUTO 0 % (0-2); EOSINOPHILS PERCENT AUTO 0 % (0-6); Hematocrit 21.7 % (33.0-51.0); Hemoglobin 6.8 g/dL (11.5-16.0); IMMATURE GRAN ABSOLUTE AUTO 1.57 K/mm3 (0.00-0.10); IMMATURE GRAN PERCENT AUTO 18 % (0-1); LYMPHOCYTES ABSOLUTE AUTO 0.33 K/mm3 (0.84-5.20); LYMPHOCYTES PERCENT AUTO 4 % (21-46); MONOCYTES PERCENT AUTO 2 % (4-13); Mean Corpuscular HGB 29.1 pg (26.0-34.0); Mean Corpuscular HGB Conc 31.3 g/dL (31.5-36.5); Mean Corpuscular Volume 93 fL (80-100); NEUTROPHILS ABSOLUTE AUTO 6.53 K/mm3 (1.96-9.15); NEUTROPHILS PERCENT AUTO 76 % (41-73); NRBC ABSOLUTE 0.06 K/mm3 (0.00-0.02); NRBC Auto 0.7 /100 WBC (0.0-0.2); RDW Coefficient Variation 17.9 % (11.7-14.2); RDW Standard Deviation 60.2 fL (35.1-46.3); Red Blood Cell Count 2.34 M/mm3 (3.80-5.20); White Blood Cell Count 8.65 K/mm3 (4.00-11.30)
[2021-05-23 00:21] LABS: Platelet Count 47 K/mm3 (150-400)
[2021-05-23 00:36] LABS: BAND PERCENT MAN 17 % (0-8); BASOPHILS PERCENT MAN 0 % (0-2); EOSINOPHILS PERCENT MAN 0 % (0-6); LYMPHOCYTES ABSOLUTE MAN 0.17 K/mm3 (0.84-5.20); LYMPHOCYTES PERCENT MAN 2 % (21-46); METAMYELOCYTE ABSOLUTE MAN 0.77 K/mm3 (0.00-0.00); METAMYELOCYTE PERCENT MAN 9 % (0-0); MONOCYTES ABSOLUTE MAN 0.25 K/mm3 (0.16-1.47); MONOCYTES PERCENT MAN 3 % (4-13); MYELOCYTE ABSOLUTE MAN 0.25 K/mm3 (0.00-0.00); MYELOCYTE PERCENT MAN 3 % (0-0); NEUTROPHILS ABSOLUTE MAN 7.17 K/mm3 (1.96-9.15); SEG NEUTROPHILS PERCENT MAN 66 % (41-73); TOTAL CELLS COUNTED 100
[2021-05-23 06:19] LABS: Hematocrit 26.2 % (33.0-51.0); Hemoglobin 8.4 g/dL (11.5-16.0); Mean Corpuscular HGB 29.4 pg (26.0-34.0); Mean Corpuscular HGB Conc 32.1 g/dL (31.5-36.5); Mean Corpuscular Volume 92 fL (80-100); NRBC ABSOLUTE 0.08 K/mm3 (0.00-0.02); NRBC Auto 0.9 /100 WBC (0.0-0.2); Platelet Count 52 K/mm3 (150-400); RDW Coefficient Variation 17.3 % (11.7-14.2); RDW Standard Deviation 58.2 fL (35.1-46.3); Red Blood Cell Count 2.86 M/mm3 (3.80-5.20); White Blood Cell Count 8.72 K/mm3 (4.00-11.30)
[2021-05-23 06:35] LABS: Albumin, Blood 2.7 g/dL (3.4-5.0); Anion Gap 14 mmol/L (6-16); Blood Urea Nitrogen 102 mg/dL (8-24); Bun/Creatinine Ratio 21.8 (12.0-20.0); CO2, Blood 15 mmol/L (21-32); Calcium, Blood 8.2 mg/dL (8.5-10.1); Chloride, Blood 107 mmol/L (98-108); Creatinine, Blood 4.68 mg/dL (0.40-1.00); Glomerular Filtration Rate 9 (60-); Glucose, Blood 216 mg/dL (70-99); Magnesium, Blood 2.5 mg/dL (1.6-2.4); Potassium, Blood 5.3 mmol/L (3.5-5.5); Sodium, Blood 136 mmol/L (136-145)
--- NOTE | 2021-05-23 06:52 | NUR ---
SHIFT SUMMARY: CHAVA AROUSES EASILY AND RESPONDS APPROPRIATELY. PERMACATH PLACED TO RU CHEST WALL YESTERDAY, TWO UNITS OF BLOOD INFUSED. SHE IS TOLERATING PO INTAKE WELL, POWERGLIDE TO KAREN PATENT, SHE REQUIRES ASSISTANCE TO REPOSITION HERSELF IN BED. SHE USES THE CALL LIGHT APPROPRIATELY. SHE IS LYING IN BED WITH THE CALL LIGHT IN REACH. WILL REPORT TO DAY SHIFT RN.
[2021-05-23 07:10] LABS: Phosphorus, Blood 8.8 mg/dL (2.5-4.9)
[2021-05-23 07:11] LABS: BAND PERCENT MAN 5 % (0-8); BASOPHILS PERCENT MAN 0 % (0-2); EOSINOPHILS PERCENT MAN 0 % (0-6); LYMPHOCYTES ABSOLUTE MAN 0.43 K/mm3 (0.84-5.20); LYMPHOCYTES PERCENT MAN 5 % (21-46); MONOCYTES ABSOLUTE MAN 0.17 K/mm3 (0.16-1.47); MONOCYTES PERCENT MAN 2 % (4-13); MYELOCYTE ABSOLUTE MAN 0.34 K/mm3 (0.00-0.00); MYELOCYTE PERCENT MAN 4 % (0-0); NEUTROPHILS ABSOLUTE MAN 7.76 K/mm3 (1.96-9.15); SEG NEUTROPHILS PERCENT MAN 84 % (41-73); TOTAL CELLS COUNTED 100
--- NOTE | 2021-05-23 11:53 | NUR ---
Update 05/23/21: Per chart review with Dr. Brumfield, pt. will begin dialysis today. No D/C date set at this time. Plan to continue to follow patient's care and provide care coordination/discharge planning as needed. I will contact patient's to update him later this afternoon. Update 05/22/21: Per chart review, dialysis discussed with pt. and she is agreeable. Pt. will begin dialysis this week. Plan to continue to follow patient's care and provide care coordination/discharge planning as needed. Update 05/21/21: Per chart review patient's condition is improving, however; renal function is still poor. Plan to continue to follow patient's care and provide care coordination/discharge planning as needed.
--- NOTE | 2021-05-23 15:01 | NUR ---
SHIFT SUMMARY PT A&OX2-3, USES CALL LIGHT, PLEASANT AND COOPERATIVE. VSS, CBG ACHS, BASELINE 2LNC, PERMACATH USED FOR DIALYSIS TODAY. POWERGLIDE PATENT, ABX SCHEDULED. QUANG PO, PARISI PATENT & DRAINING, INCONTINENT BM + BSC BM. STAND PIVOT TO CHAIR/BSC/BED. WORKED WITH OT. WILL REPORT TO ONCOMING NOC RN.
[2021-05-24 06:04] LABS: Hematocrit 27.6 % (33.0-51.0); Hemoglobin 9.1 g/dL (11.5-16.0); Mean Corpuscular Volume 88 fL (80-100); NRBC ABSOLUTE 0.53 K/mm3 (0.00-0.02); NRBC Auto 3.2 /100 WBC (0.0-0.2); Platelet Count 63 K/mm3 (150-400); RDW Coefficient Variation 17.6 % (11.7-14.2); RDW Standard Deviation 55.8 fL (35.1-46.3); Red Blood Cell Count 3.14 M/mm3 (3.80-5.20); White Blood Cell Count 16.48 K/mm3 (4.00-11.30)
[2021-05-24 06:18] LABS: Albumin, Blood 2.8 g/dL (3.4-5.0); Anion Gap 10 mmol/L (6-16); Blood Urea Nitrogen 75 mg/dL (8-24); Bun/Creatinine Ratio 20.2 (12.0-20.0); CO2, Blood 23 mmol/L (21-32); Calcium, Blood 8.2 mg/dL (8.5-10.1); Chloride, Blood 107 mmol/L (98-108); Creatinine, Blood 3.72 mg/dL (0.40-1.00); Glomerular Filtration Rate 12 (60-); Glucose, Blood 91 mg/dL (70-99); Magnesium, Blood 2.1 mg/dL (1.6-2.4); Potassium, Blood 4.6 mmol/L (3.5-5.5); Sodium, Blood 140 mmol/L (136-145)
[2021-05-24 06:27] LABS: Phosphorus, Blood 4.6 mg/dL (2.5-4.9)
[2021-05-24 06:39] LABS: PCO2 Arterial 32.8 mmHg (35-45); PO2 Arterial 94.6 mmHg (80-100); pH Blood Arterial 7.45 (7.35-7.45)
--- NOTE | 2021-05-24 06:46 | NUR ---
PT FOUND TO BE IN RESPIRATORY DISTRESS AT APPROX 0500. RR IN 30'S. PT HYPOXIC IN LOW 80'S AND TACHY. O2 INCREASED TO 12L VIA OXYMIZER. RESPIRATORY THERAPY CALLED INTO ROOM. PT LETHARGIC DURING THIS TIME. OPENING EYES BREIFLY. BIPAP PLACED AND ABG COMPLETED. RESPIRATORY STATUS HAS IMPROVED SINCE BEING ON BIPAP.
[2021-05-24 07:11] LABS: HBSAG SCREEN Negative (Negative); HEP A AB, IGM Negative (Negative); HEP B CORE AB, IGM Negative (Negative); HEP C VIRUS AB <0.1 (0.0-0.9)
[2021-05-24 09:19] LABS: BAND PERCENT MAN 5 % (0-8); BASOPHILS PERCENT MAN 0 % (0-2); EOSINOPHILS PERCENT MAN 0 % (0-6); LYMPHOCYTES ABSOLUTE MAN 0.65 K/mm3 (0.84-5.20); LYMPHOCYTES PERCENT MAN 4 % (21-46); MONOCYTES ABSOLUTE MAN 0.82 K/mm3 (0.16-1.47); MONOCYTES PERCENT MAN 5 % (4-13); MYELOCYTE ABSOLUTE MAN 0.65 K/mm3 (0.00-0.00); MYELOCYTE PERCENT MAN 4 % (0-0); NEUTROPHILS ABSOLUTE MAN 14.33 K/mm3 (1.96-9.15); SEG NEUTROPHILS PERCENT MAN 82 % (41-73); TOTAL CELLS COUNTED 100
--- NOTE | 2021-05-24 09:57 | NUR ---
CALLED FAMILY AND GAVE UPDATE ON PT'S CHANGE IN CONDITION
[2021-05-24 10:14] LABS: C-REACTIVE PROTEIN, EXT RANGE 8.23 mg/dL (0.000-0.300); Troponin I 0.187 ng/mL (0.000-0.040)
--- NOTE | 2021-05-24 10:29 | NUR ---
notified of lab results D-Dimer, Troponin and CRP. She is placing new orders
--- NOTE | 2021-05-24 11:23 | NUR ---
PT TO IMAGING FOR CTA PER ORDERS.
--- NOTE | 2021-05-24 11:47 | NUR ---
PT BACK TO ROOM FROM CTA 02 SATS 1O0% ON 12L OXIMIZER. RR32. PT ANSWERSING SOME QUESTIONS. SPOUSE AT BEDSIDE.
--- NOTE | 2021-05-24 13:50 | NUR ---
PT RESTING W/EYES CLOSED. 02 SATS 100 ON 12 OXIMIZER. TACHYPNIC. SPOUSE AT BEDSIDE.
--- NOTE | 2021-05-24 14:44 | NUR ---
Update 05/24/21: Per chart review with Dr. Brumfield this am, patients condition has declined. Increased difficulty breathing and now has a need for high flow O2. is with pt. at bedside. Will continue to follow and assist in care coordination as needed.
--- NOTE | 2021-05-24 15:44 | NUR ---
DR MEYER IN TO SEE PT/SPOUSE.
--- NOTE | 2021-05-24 17:12 | NUR ---
SUMMARY PT HAS BEEN LETHARGIC T/O SHIFT. NOW ANSWERS QUESTIONS WHEN PROMPTED BUT THEN RETURNS TO RESTING W/EYES CLOSED. 02 SATS 100 ON 12L OXIMYZER. CHANGED PT FROM BIPAP TO OXIMYZER WHEN PT TRANSPORTED TO IMAGING FOR CTA. APPEARS TO BE TOLERATING OXIMYZER. HR TACHY THIS AM, NOW IN 70S. SPOUSE AT BEDSIDE. SPOUSE WANTS DAUGTHER TO COME IN AND SEE PT. DR MEYER AWARE OF PT'S CHANGE IN CONDITION AND DISCUSSED W/SPOUSE. PT HAD 100 ML UO FOR SHIFT, REPORTED TO DR MEYER. CALL LIGHT IN REACH.
--- NOTE | 2021-05-24 18:20 | NUR ---
Spoke to pt's Delmar today, he is aware pt's condition is not likely to improve. He is open to discussing hospice. He would like to get her started on hospice and returned to [facility] as soon as they are able to arrange this.
[2021-05-25 06:33] LABS: Hematocrit 20.4 % (33.0-51.0); Hemoglobin 6.7 g/dL (11.5-16.0); Mean Corpuscular HGB 30.2 pg (26.0-34.0); Mean Corpuscular HGB Conc 32.8 g/dL (31.5-36.5); Mean Corpuscular Volume 92 fL (80-100); NRBC ABSOLUTE 0.14 K/mm3 (0.00-0.02); NRBC Auto 1.9 /100 WBC (0.0-0.2); RDW Coefficient Variation 17.6 % (11.7-14.2); RDW Standard Deviation 59.1 fL (35.1-46.3); Red Blood Cell Count 2.22 M/mm3 (3.80-5.20); White Blood Cell Count 7.47 K/mm3 (4.00-11.30)
[2021-05-25 06:41] LABS: Platelet Count 35 K/mm3 (150-400)
[2021-05-25 06:57] LABS: Albumin, Blood 2.5 g/dL (3.4-5.0); Anion Gap 11 mmol/L (6-16); Blood Urea Nitrogen 93 mg/dL (8-24); Bun/Creatinine Ratio 20.4 (12.0-20.0); CO2, Blood 23 mmol/L (21-32); Calcium, Blood 8.1 mg/dL (8.5-10.1); Chloride, Blood 107 mmol/L (98-108); Creatinine, Blood 4.57 mg/dL (0.40-1.00); Glomerular Filtration Rate 10 (60-); Glucose, Blood 68 mg/dL (70-99); Magnesium, Blood 2.5 mg/dL (1.6-2.4); Potassium, Blood 5.2 mmol/L (3.5-5.5); Sodium, Blood 141 mmol/L (136-145)
--- NOTE | 2021-05-25 07:27 | NUR ---
SHIFT SUMMARY PT RESTED WELL T/O NIGHT. CONFUSED/COOPERATIVE WITH CARE INTERMITTENTLY T/O NIGHT, CALLING OUT FOR ASSISTANCE. BED ALARM FOR SAFETY + CALL LIGHT IN REACH. PT REFUSED REPOSITIONING INTERMITTENTLY T/O NIGHT, REPOSITIONS SELF WITH 1 PERSON MODERATE ASSIST. LUNG SOUND DIMINISHED/COARSE T/O WITH FINE CRACKLES IN BASES. OXIMYZER IN PLACE, TITRATED TO 7L THIS AM, 100% SATURATIONS, RESPIRATIONS EVEN/UNLABORED AT REST, SOB WITH MINIMAL EXERTION. PT UP TO DANGLE AT BEDSIDE THIS AM, LARGE LOOSE BM. TELEMETRY NSR IN 70s T/O NIGHT. PARISI SECURE WITH MODERATE AMOUNT OF CLEAR/YELLOW URINE OUT. PT RESTING WELL THIS AM. AWAITING ALL LAB RESULTS THIS AM THERE IS CONCERN WITH CONTAMINATION OF THE MIDLINE SAMPLE, WILL REDRAW LABS TO CONFIRM RESULTS. REPORT TO DAY SHIFT TABITHA QUARLES AT THIS TIME. PT CURRENTLY RESTING IN BED WITH CALL LIGHT IN REACH + BED ALARM ON.
[2021-05-25 07:47] LABS: Phosphorus, Blood 8.6 mg/dL (2.5-4.9)
[2021-05-25 07:50] LABS: BAND PERCENT MAN 4 % (0-8); BASOPHILS PERCENT MAN 0 % (0-2); EOSINOPHILS PERCENT MAN 0 % (0-6); LYMPHOCYTES ABSOLUTE MAN 0.89 K/mm3 (0.84-5.20); LYMPHOCYTES PERCENT MAN 12 % (21-46); METAMYELOCYTE ABSOLUTE MAN 0.14 K/mm3 (0.00-0.00); METAMYELOCYTE PERCENT MAN 2 % (0-0); MONOCYTES ABSOLUTE MAN 0.37 K/mm3 (0.16-1.47); MONOCYTES PERCENT MAN 5 % (4-13); MYELOCYTE ABSOLUTE MAN 0.29 K/mm3 (0.00-0.00); MYELOCYTE PERCENT MAN 4 % (0-0); NEUTROPHILS ABSOLUTE MAN 5.75 K/mm3 (1.96-9.15); SEG NEUTROPHILS PERCENT MAN 73 % (41-73); TOTAL CELLS COUNTED 100
[2021-05-25 08:19] LABS: Hematocrit 20.5 % (33.0-51.0); Hemoglobin 6.4 g/dL (11.5-16.0); Mean Corpuscular HGB Conc 31.2 g/dL (31.5-36.5); Mean Corpuscular Volume 93 fL (80-100); NRBC ABSOLUTE 0.12 K/mm3 (0.00-0.02); NRBC Auto 1.8 /100 WBC (0.0-0.2); RDW Coefficient Variation 17.6 % (11.7-14.2); RDW Standard Deviation 59.3 fL (35.1-46.3); Red Blood Cell Count 2.21 M/mm3 (3.80-5.20); White Blood Cell Count 6.68 K/mm3 (4.00-11.30)
[2021-05-25 08:25] LABS: Platelet Count 31 K/mm3 (150-400)
[2021-05-25 08:32] LABS: Albumin, Blood 2.5 g/dL (3.4-5.0); Anion Gap 10 mmol/L (6-16); Blood Urea Nitrogen 94 mg/dL (8-24); Bun/Creatinine Ratio 19.6 (12.0-20.0); CO2, Blood 23 mmol/L (21-32); Calcium, Blood 8.1 mg/dL (8.5-10.1); Chloride, Blood 107 mmol/L (98-108); Creatinine, Blood 4.79 mg/dL (0.40-1.00); Glomerular Filtration Rate 9 (60-); Glucose, Blood 68 mg/dL (70-99); Magnesium, Blood 2.4 mg/dL (1.6-2.4); Potassium, Blood 4.9 mmol/L (3.5-5.5); Sodium, Blood 140 mmol/L (136-145)
[2021-05-25 08:43] LABS: BAND PERCENT MAN 1 % (0-8); BASOPHILS PERCENT MAN 0 % (0-2); EOSINOPHILS PERCENT MAN 0 % (0-6); TOTAL CELLS COUNTED 100
[2021-05-25 09:05] LABS: LYMPHOCYTES PERCENT MAN 9 % (21-46); MONOCYTES PERCENT MAN 6 % (4-13); MYELOCYTE ABSOLUTE MAN 0.73 K/mm3 (0.00-0.00); MYELOCYTE PERCENT MAN 11 % (0-0); NEUTROPHILS ABSOLUTE MAN 4.94 K/mm3 (1.96-9.15); SEG NEUTROPHILS PERCENT MAN 73 % (41-73)
[2021-05-25 09:27] LABS: Phosphorus, Blood 8.1 mg/dL (2.5-4.9)
--- NOTE | 2021-05-25 10:20 | NUR ---
AM MEDS PATIENT SOMNOLENT, AM ORAL MEDS HELD AT THIS TIME. DR MEYER NOTIFIED BY TABITHA.
--- NOTE | 2021-05-25 11:22 | NUR ---
Comfort care orders placed. Pt's Delmar is trying to decide whether or not to send pt back to [facility], as they are on complete lockdown due to Covid. He understandably wants to spend his last days with her. He is contemplating taking her to either his sister's home, or down to their personal home in [place], with hospice to assist. He is currently living with his sister, as he is in the process of giving their personal home to his daughter. Pt remains non-responsive and appears to be transitioning. No s/s of pain, anxiety or SOB.
--- NOTE | 2021-05-25 18:31 | NUR ---
SHIFT SUMMARY PATIENT PLACED ON COMFORT CARE THIS SHIFT. WAKES TO HER NAME. NOT ORIETNED TO PLACE OR TIME. MEDICATED FOR ANXIETY AND PAIN PER COMFORT CARE ORDERS ON EMAR. 3L O2 VIA HUMIDIFIED O2 FOR COMFORT. POSITIONED ON RIGHT SIDE FOR COMFORT. PARISI PATENT AND DRAINING. ATTENDS CHANGED PRN. WAITING TO DISCHARGE HOME WITH FAMILY ON HOSPICE.
--- NOTE | 2021-05-25 23:25 | NUR ---
PATIENT WAS ATTEMPTED TO REPOSITION BUT SHE REFUSED AND QUICKLY FELL BACK ASLEEP. CALL LIGHT WITHIN REACH.
--- NOTE | 2021-05-26 03:30 | NUR ---
SHIFT SUMMARY: COVID 19 - COMFORT CARE PATIENT WAKES TO HER NAME AND IS NOT ORIENTED TO PLACE OR TIME. PATIENT HAS NOT NEEDED MEDICATION FOR ANXIETY OR PAIN THIS SHIFT. PATIENT IS ON 3L OXYGEN NC FOR COMFORT. PATIENT IS POSITIONED ON RIGHT SIDE. PARISI IS PATIENT AND DRAINING. ATTENDS IN PLACE AND IS CHANGED PRN. CALL LIGHT WITHIN REACH. THE PLAN IS TO DISCHARGE HOME WITH FAMILY ON HOSPICE WHEN AVAILABLE.
--- NOTE | 2021-05-26 05:51 | NUR ---
450 ML OF URINE CAME OUT OF HER PARISI. IT IS DARK YELLOW URINE. CALL LIGHT WITHIN REACH.
--- NOTE | 2021-05-26 10:30 | NUR ---
PT APPEARS TO BE RESTING COMFORTABLY AT THIS TIME. DENIES PAIN AND DOES NOT APPEAR TO BE IN ANY DISTRESS AT THIS TIME. 4L O2 IN PLACE FOR COMFORT. PARISI PATENT, DRAINING DARK URINE. REPOSITIONED ON L SIDE, 2 ASSIST. REFUSED BREAKFAST TRAY THIS AM.
--- NOTE | 2021-05-26 13:32 | NUR ---
PT APPEARS TO BE SLEEPING COMFORTABLY AT THIS TIME. AWAKENS TO VERBAL STIMULI. DENIES PAIN
--- NOTE | 2021-05-26 15:54 | NUR ---
PT REPOSITIONED SELF ONTO BACK, DENIES PAIN AT THIS TIME. FALLS BACK ASLEEP EASILY.
--- NOTE | 2021-05-26 17:25 | NUR ---
SHIFT SUMMARY PT HAS DONE WELL T/O SHIFT. HAS APPEARED TO REST COMFORTABLY, DENIED PAIN T/O SHIFT. REPOSITIONED TOLERATED T/O SHIFT. ISAK PATENT. NO PO INTAKE T/O SHIFT.
--- NOTE | 2021-05-26 18:16 | NUR ---
pt resting and comfortable
--- NOTE | 2021-05-26 21:17 | NUR ---
PATIENT DECLINED WANTING TO BE REPOSITIONED AND FELL BACK ASLEEP. CALL LIGHT WITHIN REACH. SHE IS LAYING IN BED.
--- NOTE | 2021-05-26 22:55 | NUR ---
GAVE REPORT TO NURSE 305 ON MEDICAL FLOOR.
--- NOTE | 2021-05-27 02:46 | NUR ---
TRANSMITTER ENGINEER IN CHARGE SUMMARY PT TRANSFERED TO MEDICAL UNIT AT 2240. PT IS ALERT AND ABLE TO MAKE NEEDS KNOWN. MEDICATED FOR PAIN ONCE TONIGHT SO FAR. NO RESPIRATION DISTRESS PRESENT. Q2 REPOSITIONING AND OTHER COMFORT CARE MEASURES PROVIDED. BED ALARM ON, CALL LIGHT WITHIN REACH, WILL CONTINUE TO MONIOR.
--- NOTE | 2021-05-27 14:23 | NUR ---
COMFORT CARE ASSESSMENT FAMILY AT BEDSIDE. PATIENT SLEEPING MOST OF SHIFT. PATIENT WOKE UP AND TALKED WITH FAMILY FOR A LITTLE BIT. PATIENT RESTING COMFORTABLY.
--- NOTE | 2021-05-27 17:50 | NUR ---
pt seen this am was coomfortable
--- NOTE | 2021-05-27 18:02 | NUR ---
SHIFT SUMMARY PATIENT MEDICATED X2 FOR AIR HUNGER AND PAIN. PATIENT OPENS EYES TO PHYSICAL AND VERBAL STIMULI BUT DOES NOT RESPOND OR REMAIN ALERT. REPOSITIONED Q2 AND FLOATE WITH PILLOWS. NO SIGN OF DISTRESS. SPOUSE VISITED TODAY.
--- NOTE | 2021-05-28 04:41 | NUR ---
JUNIOR QA ANALYST SUMMARY PT HAS SLEPT ALL NIGHT, BREATHING HAS BEEN SHALLOW. APPEARED TO BE IN NO PAIN. O2 IN PLACE FOR COMFORT. NO ACUTE CHANGES, COMFORT CARE MEASURES PROVIDED.
--- NOTE | 2021-05-28 11:26 | NUR ---
Received a call from pt's sister in law Apple regarding hospice. She asked about the services hospice would provide for the pt, as she states, "I have nothing here to care for a sick person". I explained that hospice will provide the hospital bed, the alternating pressure pad, briefs, comfort medications, as well as training and assistance from an RN, and bathing and grooming assistance for the pt by a TUBULAR RIVETER. Apple states with this support, she feels confident that pt can come and stay in her home, along with pt's Delmar. Placed call to Lena from [facility] who was already planning on following up on this today. She will follow up with both Apple and Delmar on getting pt home to Apple's house.
--- NOTE | 2021-05-28 14:26 | NUR ---
Update 05/28/21: [facility] has arranged for transportation at 3:30 pm today. They will be providing a same day hospice admit. Equipment has been deliviered. Pt. will be discharging home with family. No further needs at this time.
[2021-05-28] MEDS ORDERED: TYLENOL PR (14:32)
[2021-05-28] MEDS ORDERED: Haloperidol2 MG/1 ML PO (14:33)
[2021-05-28] MEDS ORDERED: MORP20L SL (14:33)
[2021-05-28] MEDS ORDERED: LORA.5 PO (14:33)
[2021-05-28] MEDS ORDERED: COMPAZINE10 MG PO (14:34)
--- NOTE | 2021-05-28 14:55 | NUR ---
KAREN POWERGLIDE REMOVED. NO COMPLICATIONS.
== END 2021-05-28 15:55 | disposition hospice, home (50) | DRG 177 ==
LOC: ER 06:26 → SURS 12:09 → ERHOLD 12:09 → SURS 17:33 → MEDS 05-26 22:40 → ENPENDDIS 05-28 11:53 → MEDS 05-28 15:55
PROVIDERS: Emergency Medicine; Family Medicine; Internal Medicine; Internal Medicine Nephrology; ADMIT Internal Medicine
PROC: 8E0ZXY6 Isolation (ICD-10-PCS; 2021-05-18)
PROC: 3E03329 Introduction of Other Anti-infective into Peripheral Vein, Percutaneous Approach (ICD-10-PCS; 2021-05-18)
PROC: 5A09357 Assistance with Respiratory Ventilation, Less than 24 Consecutive Hours, Continuous Positive Airway Pressure (ICD-10-PCS; principal; 2021-05-20)
PROC: 0JH63XZ Insertion of Tunneled Vascular Access Device into Chest Subcutaneous Tissue and Fascia, Percutaneous Approach (ICD-10-PCS; 2021-05-22)
PROC: 02HV33Z Insertion of Infusion Device into Superior Vena Cava, Percutaneous Approach (ICD-10-PCS; 2021-05-22)
PROC: B518YZA Fluoroscopy of Superior Vena Cava using Other Contrast, Guidance (ICD-10-PCS; 2021-05-22)
PROC: 5A1D70Z Performance of Urinary Filtration, Intermittent, Less than 6 Hours Per Day (ICD-10-PCS; 2021-05-22)
PROC: 30233N1 Transfusion of Nonautologous Red Blood Cells into Peripheral Vein, Percutaneous Approach (ICD-10-PCS; 2021-05-22)
DX: U07.1 COVID-19 (principal); J12.82 Pneumonia due to coronavirus disease 2019; J96.21 Acute and chronic respiratory failure with hypoxia; G93.41 Metabolic encephalopathy; N17.9 Acute kidney failure, unspecified; C90.00 Multiple myeloma not having achieved remission; I50.32 Chronic diastolic (congestive) heart failure; D68.59 Other primary thrombophilia; E87.2 Acidosis; I30.0 Acute nonspecific idiopathic pericarditis; D84.9 Immunodeficiency, unspecified; N18.4 Chronic kidney disease, stage 4 (severe); N25.81 Secondary hyperparathyroidism of renal origin; Z66 Do not resuscitate; Z51.5 Encounter for palliative care; D63.1 Anemia in chronic kidney disease; Z88.8 Allergy status to other drugs, medicaments and biological substances; E66.01 Morbid (severe) obesity due to excess calories; D69.6 Thrombocytopenia, unspecified; Z88.5 Allergy status to narcotic agent; Z79.01 Long term (current) use of anticoagulants; G47.33 Obstructive sleep apnea (adult) (pediatric); I27.20 Pulmonary hypertension, unspecified; E78.5 Hyperlipidemia, unspecified; Z98.890 Other specified postprocedural states; Z90.710 Acquired absence of both cervix and uterus; Z79.82 Long term (current) use of aspirin; Z79.899 Other long term (current) drug therapy; Z79.4 Long term (current) use of insulin; E87.5 Hyperkalemia; F03.90 Unspecified dementia, unspecified severity, without behavioral disturbance, psychotic disturbance, mood disturbance, and anxiety; E78.00 Pure hypercholesterolemia, unspecified; J45.909 Unspecified asthma, uncomplicated; Z86.711 Personal history of pulmonary embolism; Z86.718 Personal history of other venous thrombosis and embolism; E11.621 Type 2 diabetes mellitus with foot ulcer; L97.509 Non-pressure chronic ulcer of other part of unspecified foot with unspecified severity; I48.91 Unspecified atrial fibrillation; E03.9 Hypothyroidism, unspecified; E11.22 Type 2 diabetes mellitus with diabetic chronic kidney disease; Z87.891 Personal history of nicotine dependence; E86.9 Volume depletion, unspecified; Z68.35 Body mass index [BMI] 35.0-35.9, adult; I35.0 Nonrheumatic aortic (valve) stenosis; H91.90 Unspecified hearing loss, unspecified ear; Z65.9 Problem related to unspecified psychosocial circumstances
CPT/HCPCS: 36415; 36430; 36558; 36600; 71045; 71260; 76770; 76937; 77001; 80048; 80053; 80069; 80074; 81001; 82270; 82728; 82803; 82947; 83605; 83615; 83735; 83880; 84145; 84484; 85025; 85379; 85651; 86140; 86317; 86850; 86900; 86901; 86902; 86922; 87040; 87086; 93005; 93010; 94640; 94660; 94760; 94762; 96365; 97110; 97116; 97161; 97166; 97530; 99152; 99153; 99285-25; A9270; C1750; C1769; C1894; J0696; J0881; J1644; J1650; J2060; J2270; J2920; J3010; J7030; J7040; P9016; Q9967; U0004